=== PATIENT | female | born 1980 | race Caucasian/White ===

== ENCOUNTER 2020-03-17 17:54 | Emergency (ER) | payer OTHER ==
[~2020-03-17] VITALS: Ht 167.6 cm; Wt 82.1 kg
--- OUTSIDE RECORDS SUMMARY | ~2020-03-17 | XMS | Encounter Summary ---
Demographics + + + | Address | [address] | | | [place] [address] | + + + | Home Phone | | + + + | Preferred Language | Unknown | + + + | Marital Status | Single | + + + | Yarsani Affiliation | NON | + + + | Race | White | + + + | Ethnic Group | Not or | + + + Author + + + | Author | [facility] | + + + | Organization | [facility] | + + + | Address | Unknown | + + + | Phone | Unavailable | + + + Support + + +---------+ + | Name | Relationship | Address | Phone | + + +---------+ + | Asim Garcia | ECON | Unknown | | + + +---------+ + Care Team Providers + +------+ + | Care Freight Solicitor Name | Role | Phone | + +------+ + | Arturo Tony ELASTIC ATTACHER CHAINSTITCH | PCP | | + +------+ + Encounter Details +--------+ + + + + | Date | Type | Department | Care Team | Description | +--------+ + + + + | 01/08/ | Telephone | Center | [facility] | | | 2014 | | at [facility] [address] | [address] | | | | | [address] | [address] | | | | | Physician's | [place], [place] | | | | | [address], [address]th floor | [address] | | | | | [place], [place] | [phone] | | | | | [address] | | | | | | [phone] | | | +--------+ + + + + Social History + + + +--------+------+ | Tobacco Use | Types | Packs/Day | Years | Date | | | | | Used | | + + + +--------+------+ | Current Every Day | Cigarettes | 0.25 | 16 | | | Smoker | | | | | + + + +--------+------+ + +---+---+---+ | Smokeless Tobacco: | | | | | Never Used | | | | + +---+---+---+ + + +---------+ + | Alcohol Use | Drinks/Week | oz/Week | Comments | + + +---------+ + | No | | | | + + +---------+ + + + + | Sex Assigned at | Date Recorded | | | | + + + | Not on file | | + + + documented as of this encounter Miscellaneous Notes Telephone Encounter - Stephen Hernandez MD - 01/08/2015 12:[address] Rosemarie Wills regarding this patient who is scheduled for a cystoscopy/ureteroscopy on . I have no OB records for review. Per patient's report, she is is a at 33w5 d today (will be 34w1d on day of procedure) dated by a 25w US. She sees Dr. Santillan for her O B care. I spoke with her regarding risks of nonobstetric surgical procedures in the 3rd trimester, including risk of labor, PPROM and distress, possibly requiring emergent CS. B etamethazone is not indicated for lung maturity as she will be > 34w at time of proced ure. If feasible, we recommend considering regional anesthesia rather than GETA to decrease risk of aspiration and exposure to propofol, however, I explained that this decision will be made by her surgical and anesthesia teams. She expressed that she has severe anxiety and may not tolerate being awake for the procedure. She expressed understanding of the plan and our OB team will plan on seeing her preoperativ ara and consenting her for possible CS. Will plan for continuous external monitoring d uring the procedure. Will have CS tray available in case of distress. We discussed our recommendations with Dr. Brian Wills. STEPHEN HERNANDEZ MD Maternal Medicine Fellow 15 12:39 PM PDTdocumented in this encounter Plan of Treatment Not on filedocumented as of this encounter Visit Diagnoses Not on filedocumented in this encounter"
--- OUTSIDE RECORDS SUMMARY | ~2020-03-17 | XMS | Encounter Summary ---
Demographics + + + | Address | [address] [place] [address] N | | | [place] [address] | + + + | Home Phone | | + + + | Preferred Language | Unknown | + + + | Marital Status | Unknown | + + + | Restorationism Affiliation | Unknown | + + + | Race | White | + + + | Ethnic Group | Not or | + + + Author + + + | Author | [facility] | | | and [place] | + + + | Organization | [facility] | | | and [place] | + + + | Address | Unknown | + + + | Phone | Unavailable | + + + Support + + +---------+ + | Name | Relationship | Address | Phone | + + +---------+ + | Naga Grace | ECON | Unknown | | + + +---------+ + Care Team Providers + +------+ + | Care Bakery Machine Mechanic Supervisor Name | Role | Phone | + +------+ + | Mireya Krishnamurthy | PCP | | + +------+ + Reason for Visit + +--------+ + | Reason | Onset | Comments | | | Date | | + +--------+ + | Medication Refill | 11/10/ | | | | 2020 | | + +--------+ + Encounter Details +--------+ + + + + | Date | Type | Department | Care Team | Description | +--------+ + + + + | 11/10/ | Telephone | [facility] | Glenn Bro MD | Medication Refill | | 2020 | | [facility] | [address] | | | | | [facility] [address] | [place] | | | | | [address] [place], | [address] | | | | | [place] [address] | | | | | | [phone] | | | +--------+ + + + + Social History + +-------+ +--------+------+ | Tobacco Use | Types | Packs/Day | Years | Date | | | | | Used | | + +-------+ +--------+------+ | Never Assessed | | | | | + +-------+ +--------+------+ + + + | Sex Assigned at | Date Recorded | | | | + + + | Female | | + + + documented as of this encounter Miscellaneous Notes Telephone Encounter - Ирина Barnes RN - 11/11/2019 4:49 PM PDTCalled and informed pt/AARON rojas RN elephone Ирина Wetzel RN - 11/11/2019 4:04 PM PDTSumatriptan, never prescribed by Dr. Bro Last seen 11/05/19 Next appt 03/16/20 Did you want to change Cymbalta? /DARIUS Jon elephone Mario Hawk - 11/11/2019 1:55 PM PDTPt. Would like to refill Sumatriptan 5 0 mg. At [facility] in [place]. Pt. Is also taking 20mg of Cymbalta and that seems to help but cannot take 40mg will wake u p in the morning "groggy" Tdocumented in this encounter Plan of Treatment Not on filedocumented as of this encounter Visit Diagnoses Not on filedocumented in this encounter
--- OUTSIDE RECORDS SUMMARY | ~2020-03-17 | XMS | Encounter Summary ---
Demographics + + + | Address | [address] | | | [place] [address] | + + + | Home Phone | | + + + | Preferred Language | Unknown | + + + | Marital Status | Single | + + + | Taoist Affiliation | NON | + + + | Race | White | + + + | Ethnic Group | Not or | + + + Author + + + | Author | [facility] | + + + | Organization | [facility] | + + + | Address | Unknown | + + + | Phone | Unavailable | + + + Support + + +---------+ + | Name | Relationship | Address | Phone | + + +---------+ + | Asim Garcia | ECON | Unknown | | + + +---------+ + Care Team Providers + +------+ + | Care Water Pump Installer Name | Role | Phone | + +------+ + | Arturo Tony SOLVENT MIXER | PCP | | + +------+ + Reason for Visit AUTH/CERT +--------+--------+ + + + + | Status | Reason | Specialty | Diagnoses / | Referred By | Referred To | | | | | Procedures | Contact | Contact | +--------+--------+ + + + + | Closed | | | | | | +--------+--------+ + + + + Encounter Details +--------+ + + + + | Date | Type | Department | Care Team | Description | +--------+ + + + + | 01/11/ | Hospital | [facility] [address] | Brittany Wills MD | | | 2015 - | Encounter | [address] | [address] | | | | | [facility] | [place], [place] | | | 01/13/ | | [place], [place] | [address] | | | 2014 | | [address] | [phone] | | | | | [phone] | | | +--------+ + + + [...] + + documented as of this encounter Last Filed Vital Signs + + + + + | Vital Sign | Reading | Time Taken | Comments | + + + + + | Blood Pressure | 111/59 | 01/13/2015 7:43 AM | | | | | PDT | | + + + + + | Pulse | 58 | 01/13/2015 7:43 AM | | | | | PDT | | + + + + + | Temperature | 36.7 C (98.1 F) | 01/13/2015 7:43 AM | | | | | PDT | | + + + + + | Respiratory Rate | 16 | 01/13/2015 7:43 AM | | | | | PDT | | + + + + + | Oxygen Saturation | 98% | 01/13/2015 7:43 AM | | | | | PDT | | + + + + + | Inhaled Oxygen | - | - | | | Concentration | | | | + + + + + | Weight | 99.2 kg (218 lb 12.8 | 01/11/2015 4:40 PM | | | | oz) | PDT | | + + + + + | Height | 167.6 cm (5' 6") | 01/11/2015 4:40 PM | | | | | PDT | | + + + + + | Body Mass Index | 35.32 | 01/11/2015 4:40 PM | | | | | PDT | | + + + + + documented in this encounter Discharge Summaries Justino Mohamud MD, MSc - 01/13/2015 8:27 AM PDTFormatting of this note might be differen t from the original. INPATIENT PHYSICIAN DISCHARGE SUMMARY Author: JUSTINO MOHAMUD MD, MSc Attending Physician: Brittany Wills MD PCP: Arturo Tony NP Admission Date: 01/11/2015 Discharge Date: 13 Jan 2015 Diagnoses Principal Final Diagnosis: 1. Right flank pain, right hydronephrosis Procedures 1. Right ureteroscopy Brief Hospital Course 1. Mrs. Araiza is a 34 yo lady at 34w2d by 24w ultrasound presents for ri ght ureteroscopy and possible laser lithotripsy on 01/11/2015. In the operating room, no ston es were detected therefore only a right ureteroscopy was performed. Post-operatively, she re covered well. She tolerated an oral diet, and although she was slightly hypotensive (80-90s/ 50s), this is her baseline and she was asymptomatic. Medications: Current Discharge Medication List START taking these medications Details HYDROcodone-acetaminophen 5-325 mg oral tablet Take 1 tablet by mouth every six hours as ne eded for moderate pain. Not to exceed 3250 mg of acetaminophen from all products per 24 hour period. Qty: 20 tablet, Refills: 0 CONTINUE these medications which have CHANGED or have new prescriptions Details oxyCODONE-acetaminophen 5-325 mg oral tablet Take 1-2 tablets by mouth as needed. Qty: 20 tablet, Refills: 0 CONTINUE these medications which have NOT CHANGED Details docusate sodium 100 mg oral capsule Take 100 mg by mouth two times daily. FLUoxetine (PROZAC) 20 mg oral capsule Take 20 mg by mouth two times daily. ondansetron (ZOFRAN, HYDROCHLORIDE,) 4 mg oral tablet Take 4 mg by mouth every twelve ho urs as needed. VIT/IRON FUMARATE/FA ( ORAL) Take by mouth once daily in the morning. Diet Regular Regular diet- There are no restrictions to your diet. You may eat or drink whatever you pr efer, though healthy food choices are recommended. Activity No activity restrictions - No lifting more than 10 pounds for 6 weeks. This will allow your wound to heal as well as possible. - Avoid bearing down or straining with bowel movements. - Narcotics can cause constipation, so you may take djut-ywb-arcxemd stool softeners (Senok ot-S, Miralax, Colace) following the instructions on the box. Stop taking these pills if yo u are experiencing diarrhea. - No driving while on narcotics or with a urinary catheter in place. Destination: Destination: Home Condition on Discharge Fair Urology Follow Up Please follow up with Dr. Lizeth Pardo, your OBGYN next Sunday01/19/2015. Please call the Urology Clinic at with any questions or concerns, or if you experience symptoms of fever; chills; severe nausea; vomiting; pain that does not go away wi th usual medication; drainage or bleeding from the incision site; sudden numbness, weakness, or difficulty speaking; or any other concerns. If after hours, call the Urology Resident o n call at . Vitals on discharge: Ht 1.676 m (5' 6"), Wt 99.247 kg (218 lb 12.8 oz), BP 111/59, Pulse 58 , Temperature 36.7 C (98.1 F), RR 16, SpO2 98%, BMI 35.33 kg/(m^2). Outstanding labs/studies: None Follow-up Appointments: Follow up with Dr. Lizeth Pardo next Sunday for your OBGYN care. Discharging Physician: JUSTINO MOHAMUD MD, MSc Attending Physician: Brittany Wills MD documented in this enco unter Medications at Time of Discharge + + + +---------+ + + | Medication | Sig | Dispensed | Refills | Start | End Date | | | | | | Date | | + + + +---------+ + + | FLUoxetine | Take 20 mg by mouth | | 0 | | | | (PROZAC) 20 mg oral | two times daily. | | | | | | capsule | | | | | | + + + +---------+ + + | ondansetron | Take 4 mg by mouth | | 0 | | | | (ZOFRAN, | every twelve hours | | | | | | HYDROCHLORIDE,) 4 mg | as needed. | | | | | | oral tablet | | | | | | + + + +---------+ + + | ondansetron 4 mg | Take 1 tablet by | 30 | 0 | 07/15/20 | | | oral tablet | mouth every eight | tablet | | 15 | | | | hours as needed for | | | | | | | nausea/vomiting. | | | | | + + + +---------+ + + | | Take 1 to 2 tablets | 30 | 0 | 01/14/20 | | | oxyCODONE-acetaminop | by mouth every six | tablet | | 15 | | | hen 5-325 mg oral | hours as needed. | | | | | | tablet | | | | | | + + + +---------+ + + | VIT/IRON | Take by mouth once | | 0 | | | | FUMARATE/FA | daily in the | | | | | | ( ORAL) | morning. | | | | | + + + +---------+ + + | senna-docusate | Take 1 tablet by | 40 | 0 | 01/14/20 | | | 8.6-50 mg oral | mouth twice daily as | tablet | | 15 | | | tablet | needed. | | | | | + + + +---------+ + + documented as of this encounter Progress Notes Justino Mohamud MD, MSc - 01/13/2015 7:11 AM PDTFormatting of this note might be differen t from the original. Urology Progress Note Hospital Day: 2 Author: Justino Mohamud MD Attending Physician: Brittany Wills MD ID: 34 y.o. F at 34w2d by 24w ultrasound for right ureteroscopy on 01/12/20 15 for right hydronephrosis and flank pain, no evidence of stones on ureteroscopy. 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 Patient OOB/AMB per nurse. Objective: Last Vitals: BP 111/79 | Pulse 61 | Temp 36.7 C (98.1 F) | RR 17 | Ht 1.676 m (5' 6") | Wt 99.247 kg (218 lb 12.8 oz) | SpO2 99% | BMI 35.33 kg/(m^2) 24 Hour Vital Min/Max: Systolic (24hrs), Av mmHg, Min:87 mmHg, Max:111 mmHg Diastolic (24hrs), Av mmHg, Min:52 mmHg, Max:79 mmHg Pulse Min: 57 Max: 69 Temp Min: 36.4 C (97.5 F) Max: 36.7 C (98.1 F) Resp Min: 16 Max: 17 SpO2 Min: 97 % Max: 100 % Intake/Output Summary (Last 24 hours) at 01/13/15 0713 Last data filed at 01/13/15 0545 Gross per 24 hour Intake 2467.5 ml Output 2480 ml Net -12.5 ml PO: 1.6L IV: 370mL UOP: 2L + 5x Labs: Recent Labs 01/06/15 1450 01/12/15 0500 01/13/15 0453 WBC 11.71* 9.66 9.33 RBC 4.01 3.28* 3.57* HB 12.0 9.8* 10.5* HCT 35.7* 29.6* 32.0* PLT 138* 103* 120* Lab Results Component Value Date NA 138 01/13/2015 K 3.7 01/13/2015 CL 106 01/13/2015 BICARB 24 01/13/2015 BUN 5 01/13/2015 CR 0.55 01/13/2015 GLU 83 01/13/2015 CA 8.1 01/13/2015 Exam: Gen - Sleeping in bed this AM. Responding to questions. Pulm - No cough or increased work of breathing. Abd - Soft, non-distended, right sided tenderness Ext - Warm, well perfused; no LE edema, symmetric Assessment and Plan: Azucena Araiza is a 34 y.o. female with a history of right flank pain and hydronephrosis, n ow POD 2 s/p ureteroscopy, no evidence of stone in the OR. - diet: regular - pain: controlled on PO meds - needs to follow up in her OB clinic with Dr. Lizeth Pardo next Sunday01/19/2015. -OB saw patient yesterday, no issues with mother/baby, signed off. -discharge today The attending of record for this patient is Brittnay Wills MD. Jordin Mohamud, R1 Urology Pager [phone] Vernon Beauchamp - 12:32 PM Ambrocio Araiza is a 34 yo at 34w2d POD#1 s/p cystoscopy/ureteroscopy by Ur ology for history of nephrolithiasis and right hydronephrosis with no evidence of a stone. P rocedure uncomplicated, reassuring monitoring throughout the procedure. Admitted overnight d ue to pain control issues. No si/sx of labor, plan for discharge today NST 120s mod ifeanyi, accels present, no decels [place]: quiet - Reassuring FHT. No additional issues from an OB standpoint. Please page with any question s. Malissa Shaikh OBGYN [id number] signed by Vernon Shaikh at 01/12/2015 1:57 PM Justino Reno MD, MSc - 01/12/2015 6:41 AM PDTFormatting of this note might be different from the o riginal. Urology Progress Note Hospital Day: 1 Author: Justino Mohamud MD Attending Physician: Brittany Wills MD ID: 34 y.o. F at 34w2d by 24w ultrasound for right ureteroscopy on 01/12/20 15 for right hydronephrosis and flank pain, no evidence of stones on ureteroscopy. S/Interval hx: Feeling some pain overnight, baseline hypotensive, asymptomatic. Complains of some nausea. No emesis. Objective: Last Vitals: BP 87/52 | Pulse 60 | Temp 36.4 C (97.5 F) | RR 16 | Ht 1.676 m (5' 6") | Wt 99.247 kg (218 lb 12.8 oz) | SpO2 98% | BMI 35.33 kg/(m^2) 24 Hour Vital Min/Max: Systolic (24hrs), Av mmHg, Min:86 mmHg, Max:129 mmHg Diastolic (24hrs), Av mmHg, Min:52 mmHg, Max:87 mmHg Pulse Min: 58 Max: 91 Temp Min: 36.2 C (97.2 F) Max: 36.6 C (97.9 F) Resp Min: 14 Max: 20 SpO2 Min: 96 % Max: 100 % Intake/Output Summary (Last 24 hours) at 01/12/15 0746 Last data filed at 01/12/15 0520 Gross per 24 hour Intake 2565 ml Output 2370 ml Net 195 ml PO: 500mL IV: 2L UOP: 2.4L + 5x Labs: Recent Labs 01/06/15 1450 01/12/15 0500 WBC 11.71* 9.66 RBC 4.01 3.28* HB 12.0 9.8* HCT 35.7* 29.6* PLT 138* 103* Lab Results Component Value Date NA 138 01/12/2015 K 3.7 01/12/2015 CL 108 01/12/2015 BICARB 24 01/12/2015 BUN 4 01/12/2015 CR 0.49 01/12/2015 GLU 81 01/12/2015 CA 7.7 01/12/2015 Exam: Gen - Alert, conversant, NAD Pulm - No cough or increased work of breathing. Abd - Soft, non-distended, right sided tenderness Ext - Warm, well perfused; no LE edema, symmetric Assessment and Plan: Azucena Araiza is a 34 y.o. female with a history of right flank pain and hydronephrosis, n ow POD 1 s/p ureteroscopy, no evidence of stone in the OR. - restart fluoxetine - diet: regular - pain: controlled on PO meds - needs to follow up in her OB clinic with Dr. Lizeth Pardo next Sunday01/19/2015. The attending of record for this patient is Brittany Wills MD. Jordin Mohamud, R1 Urology Pager [phone] Vernon Beauchamp - 6:56 AM PDTOB BRIEF PRE-OP NOTE Admission Date/Time: 01/11/2015 0533 Service: OBGYN Faculty: Evelyn Outpatient: [facility] in [facility] HPI: Azucena Araiza is a 34 y.o. at 34w1d by 25w US presents for cystoscopy/uretero scopy possible lithotripsy by Urology for history of nephrolithiasis and right hydronephrosi s. Patient has been counseled by Dr. Hernandez on the risks of nonobstetric surgical proced ures in the third trimester. Please see telephone call from 01/08/15. Patient will have joesph nuous monitoring throughout her procedure. OB has been asked to consent patient for possible CS in case of distress during the procedure. Patient is feeling well today. Denies contractions, LOF, or vaginal bleeding. +FM. 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 - Patient consented for CS and BTL. WIll call to obtain OHP form from [facility] - Plan for continunous monitoring through procedure - Will send T&S this AM. Last Hct 01/06 35.7 - OB is available via pager for assistance SHIVANI Mathew [id number] signed by Vernon Shaikh at 01/11/2015 9:38 AM PDTdocumented in this encounter H&P Notes Brittany Wills MD - 01/11/2015 8:17 AM PDTI have examined the patient and reviewed the His tory and Physical and have confirmed that it is accurate and current. BRITTANY WILLS MD Health Services Manager Department of Urology [facility] documented in this enco unter Procedure Notes Morris Peñaloza MD - 01/11/2015 10:07 AM PDTAssociated Order(s): PROCEDURE NOTEDate of Pr ocedure: 01/11/2015 Attending Surgeon: Brittany Wills MD Data Management Associate(s): MD Salinas DE LA O MD Preoperative Diagnosis(es): 1. Right sided flank pain 2. Mild right hydronephrosis 3. Gravid uterus Postoperative Diagnosis(es): Same Procedures Performed: 1. Rigid cystourethroscopy. 2. Rigid ureteroscopy. 3. flexible ureteroscopy Anesthesia: General Estimated Blood Loss: Minimal. Specimens: none Disposition: Recovery and then home if pt's pain does not return. If it does, will likely be admitted t o OB for nephrostomy tube placement by IR Indications: Azucena Araiza is a 34 y.o. female with a history of urolithiasis, who is now and has had recurrent right flank pain. She is here today for diagnostic ureteroscopy Findings: No stones seen. Pt and baby tolerated procedure well. No fluoroscopy was used. Urethra: normal Bladder: normal Retrograde ureteropyelogram: NOT DONE due to Stone data: no stones Balloon dilation required: no Ureteral access sheath used?: no Ureteroscopes used: MR6 and P6R Holmium laser?: no Other working instruments: none Stent: none Procedure: Informed consent was previously obtained. The patient was properly identified and was shyann en to the operating room. General anesthesia was induced. The patient was placed in the cys tolithotomy position and prepped and draped in a sterile fashion. Prior to the beginning of the procedure the team paused to verify the patient's identity, as well as the procedure to be performed and the site. OB nurses were at the bedside to monitor the baby. All equipme nt required was ready and available. The surgical, nursing, and anesthesia teams participate d. Ceftriaxone was given as the antibiotic. A Sanders 21-Slovenian rigid cystoscope was then pass ed per the urethra under direct vision. The findings are as noted above. The right ureteral orifice was identified and a 0.038 inch guidewire was passed up the ureter. The MR6 semiri gid ureteroscope was passed into the right UO. No stones or other ureteral abnormalites wer e seen. This was removed and a flexible ureteroscope was passed up the ureter and into the renal pelvis. All poles and calices were examined and no stones were seen. The ureterosco pe was removed and the bladder was drained. There were no apparent complications. The marshall ent and baby tolerated the procedure well, was awakened in the operating room, and transport ed to the recovery room in stable condition. Dr. Wills was present for all portions of the operation. Associated attestation - Brittany Wills MD - 01/11/2015 12:35 PM PDTAttending Attestation I was present for all critical portions of the procedure. Had discussion with the patient's perinatologist, Dr. Lizeth Pardo following surgery. The patient's primary concern is the risk of opiate dependency in her baby. She has a strong fam amina history of drug abuse. Dr. Pardo felt the child's risk is very low given the infrequen t Percocet use by the patient. As such, nephrostomy tube placement would likely place the ba by at higher risk. Ms. Araiza will follow-up with Dr. Pardo in one to two weeks. BRITTANY WILLS MD Health Services Manager Department of Urology [facility] documented in this encounter Miscellaneous Notes Plan of Care - Rachael Napier - 01/13/2015 10:42 AM PDTProblem: Case Management Goals Goal: Discharge Needs Met Outcome: Goal met Date Met: 01/13/15 Per chart review and/or discussion with patient/family members and team, no discharge plann ing assistance from RN CM anticipated at this time. Will continue to follow through discharg e. Please see other disciplines' progress notes for their discharge recommendations. Please page immigration case worker if any CM arranged service needs arise. Rachael Napier [address] [address] Pager # [phone] valuation - Xiang Berg RN - 01/13/2015 10:40 AM PDTPatient Education Materials: AVS handout Additional Instructions: Patient was ambulating independently in hallway, tolerating regula r diet without nausea/vomiting, voiding, passing bowel movements and her pain was decreased with oral pain medication. Patient's PIV was removed prior to discharge. Patient was educate d on home diet, activity restrictions, discharge medications, constipation prevention, signs and symptoms of infection, signs and symptoms to notify MD about, MD contact information an d follow-up appointment. Patient reported that all questions were answered prior to discharg e. Patient was discharged via volunteer services to [facility] where she went to worm picker her prescriptions. She was then transported home via car by her aunt. Discharge Nurse: ANDREAS LOERA RN Date: 01/13/2015 Discharge Time: 10:40 AM andoff - Nilda Massey RN - 01/13/2015 6:31 AM PDTNursing Handoff Report Primary focus of stay: 34 yo F, s/p ureteroscopy 01/11/15. No stones found, no nephrostomy t ube placed per Dr. Wills & OB 2/2 higher risk for the fetus. PMHx: 34-weeks (this is 6th , has two living children), nausea, flank margarita n, asthma, mult pregnancies, smokes, GERD, migraines, anxiety, depression, DDD, pericardial cyst Pertinent physical findings: PIV Right hand SL. Overnight hypotension on 01/11/2015 , MD zaid re. Patient states it is her baseline. Voiding pink urine Orders to follow up on: discharge Last pain assessment/reassessment: painful to Right flank, anxious about the pain. PO oxyco done 15 mg q 4 along with scheduled tylenol is helpful and the new plan between patient and MD (no IV meds). Takes percocet at home. K- Pad has also been helpful Psych/social issues: lives in [place], has 2 daughters (2 and 13 ). Ambulates off unit to smoke. Last patient visit (i.e. Falls/Activity/Comfort/Environment/Toileting/Skin): ambulates slow and steady, voids Anticipated or pending procedures: discharge, am labs still need to be drawn Goals: Patient will rate pain at an acceptable level throughout shift. Patient will report intermittent nausea is controlled with non med/med interventions Interventions: Assess pain every 3-4 hours and prn; offer and administer medication as needed utilizing P O medications over IV whenever possible. Offer non med interventions Medication per Md order. Non med interventions for nausea such as slow deep breathing, elev ating the HOB, cool cloth to forehead Interventions that worked/didn't work:Patient was painful throughout the shift, she had one episode where her pain was increased after ambulating outside, MD felt it was best at that time to utilize oral and non med interventions above IV. A quiet dark room and application o f the k-pad was effective for her pain during this time. My recommendations forward: discharge andoff - Andrew, Valarie Coe RN - 01/12/2015 7:05 AM PDTNursing Handoff Report Primary focus of stay: 34 yo F, s/p ureteroscopy 01/11/15. No stones found, no nephrostomy t ube placed per Dr. Wills & OB 2/2 higher risk for the fetus. PMHx: 34-weeks (this is 6th ), nausea, flank pain, asthma, mult pregnanci es, smokes, GERD, migraines, anxiety, depression, DDD, pericardial cyst Pertinent physical findings: Neuro: A&Ox4. Baseline N/T in BLE on occasion; denies today. Resp: RA. Inhaler in medication bin. CV: PIVx2, one in each hand, SL. Hypotensive overnight, asymptomatic, MDs aware. GI/: Regular diet. Nausea-ongoing with . Voids; urine pink. : Fetus is active. NST and monitoring done this morning. Orders to follow up on: Admission database- please complete. Last pain assessment/reassessment: Painful, anxious about the pain, worried she will DC and then have to come back due to pain. PO oxycodone q4 hours and Tylenol PRN new plan- no IV m eds. Takes Percocet at home. Psych/social issues: Due to give 02/21. High-risk [employer] following baby #[id number]. Lives in [place], [place]. Has two daughters (2 and 13 yo's) who are staying with family in [place] . Walks outside to smoke. Last patient visit (i.e. Falls/Activity/Comfort/Environment/Toileting/Skin): SBA. Resting c omfortably in bed now. Anticipated or pending procedures: Discharge 01/13. Nursing Care Plan: Pt's pain and anxiety will be well controlled. She will resume a regular diet. Pt's fetus will remain stable. Interventions: Assess pain q2-3 hours. Administer analgesics as indicated and encourage non -pharmacological management techniques. Request change in diet order. Provide PO fluids per Pt preference. Contact L&D for monitoring. Evaluation: Pain controlled with PO oxycodone and Tylenol. At 1500 all IV pain meds were DC 'd. Pt anxious about inadequate pain control and "tired" of being painful. Intermittent naus ea, zofran and phenergan helping. L&D RN will be here this morning. Pt says she can feel the baby moving. Moderately stable. andoff - Lilliana Davenport RN - 01/12/2015 4:05 AM PDTNursing Handoff Report Primary focus of stay/Admission diagnosis: s/p Right ureteroscopy 01/11/15. No stones foun d, no nephrostomy tube placed per Dr. Duty due to risk to the fetus. Prior medical history: 34-weeks (this is her 6th ), nausea, flank pain, asthma, mult pregnancies, smokes, GERD, migraines, anxiety, depression, DDD, pericardial cys t Pertinent physical findings / events this shift: fetus is active, nausea has improved throu ghout the shift. Right sided flank pain with some relief from warm blankets, alternating of PO and IV pain meds. Patient was very anxious at beginning of the shift, had gone outside t o smoke and "felt terrible". Walks independently to BR, has pink tinged urine with no clots or sediment noted. MIVF. Will likely need to call L&D charge to schedule monitoring. LDA's/wounds: PIVx2 Pain assessment: Pain and nausea are well controlled alternating IV and PO meds Psych/social issues: baseline depression. Needs to resume Prozac, has anxiety issues as wel l Last patient visit (i.e. Falls/Activity/Comfort/Environment/Toileting/Skin): Sleeping at en d of shift. Watch for symptoms with BP. Orders to follow up on/Anticipated procedures: Needs to resume home dose of prozac. Much of her anxiety revolves around concern for pain control. Discussed need to stay close, efrain cially after dosing with IV pain meds. Possible OR if MD feels benefit outweighs risks. Fet al stress test?? Daily patient goal: To have pain and nausea controlled Outcome of patient goal: Progressing toward goal Patient stability: moderately stable Recommendations forward: Clarify plan with team in AM. Watch BP, activity, get Proza c resumed Akash Osman RN, Naomie glass - 01/11/2015 4:15 PM Brittani Phase I Discharge Criteria (Stable For Transfer): Yes Major deviations/events or pertinent findings of emliy-operative stay: very painful. No inte rvention done in OR but likely did irritate kidney. Voiding independently. Preop pain 5/10, currently 6/10. 10mg oxycodone and 1000mg IV tylenol given at 1600. Plan to be admitted over noc for pain management and if not undercontrol possibly placing urostomy tube per Dr. Wills . Anticipated post-op needs/devices/follow up: pain management Post-Op Diagnosis Codes: * Abdominal pain, other specified site [789.09] Surgical Procedure Planned - Actual Procedure Performed: Procedure(s) with comments: URETEROSCOPY WITH/WITHOUT LASER LITHOTRIPSY - DIAGNOSTIC URETEROSCOPY Anesthesia: General Length of procedure: In Room/Out of Room: 1 Hr 31 Min 13 Sec Surgeon(s) and Role: * Brittany Wills MD - Primary OR positioning comments: supine Neuro: POSS Sedation Level: Awake & Alert Last pain medication given: Fentanyl Push: 50 mcg (01/11/15 1430) Hydromorphone push (mg): 0.5 mg (01/11/15 1415) Pain medication totals: since 1400 150mcg Fentanyl, 0.5mg Dilaudid. 1,000mg Tylenol at 1600 10mg oxycodone. Additional pain medication information: Functional Epidural: No CORRECTIONS LIEUTENANT: No Respiratory: RR: 18, O2 Sat: 97 %, O2 Delivery: None (room air) Breath Sounds: WDL TAMAR: LLL: RUL: RLL: EMILIE No Comment: none noted Cardiac: BP: 105/65 mmHg HR: 84 GI: Nausea/Vomiting Status: No Signs/Symptoms: intermittent nausea- takes zofran at home Interventions: slow, deep breathing encouraged;antiemetic given;intravenous fluids initiate d;minimal stimulation;environmental adjustment Assessment: Comments: : Last void: 1530 Contact Name: Trisha-aunhetal Contact Number: [phone] Family contacted: Yes Comment:at bedside at 1600 Belongings:all home with aunt andoff - Valarie Morales RN - 01/11/2015 1:35 PM PDTNursing Handoff Report Primary focus of stay: 34 yo F, s/p ureteroscopy 01/11/15. No stones found, no nephrostomy t ube placed per Dr. Duty & OB 2/2 higher risk for the fetus. PMHx: 34-weeks , nausea, flank pain, asthma, mult pregnancies, smokes, GERD, migrai angel, anxiety, depression, DDD, pericardial cyst Pertinent physical findings: Neuro: A&Ox4. Baseline N/T in BLE on occasion; denies today. Resp: RA. Inhaler in medication bin. CV: PIVx2, one in each hand. IVF@ 75/hr. GI/: Regular diet. NPO @ midnight. Nausea-ongoing with . Voids; urine pink. Orders to follow up on: Pre-Op checklist overnight? Admission database. Stress test for fet us 01/12 am. Last pain assessment/reassessment: Very painful, increased from baseline 10 to 910 post- op. PO oxycodone q4 hours and Tylenol PRN. Takes Percocet at home. Psych/social issues: Due to give 02/21. Has high-risk [employer]. L&D RN following baby #1 [id number]. Lives in [place], [place]. Has two daughters (2 and 13 yo's) who are staying with family in [facility] and is with a girl. Pt wants to walk outside soon to smoke. Last patient visit (i.e. Falls/Activity/Comfort/Environment/Toileting/Skin): SBA. Plate of fruit and pudding in our fridge. Anticipated or pending procedures: Discharge 01/12. Nursing Care Plan: Pt's pain will be well controlled. She will eat a meal. Pt's fetus will remain stable. Interventions: Assess pain q2 hours until pain well managed. Administer analgesics as indic ated and encourage non-pharmacological management techniques as well. Provide a menu and exp ludwig how to order room service and discuss advancing the diet. Provide a jello and water on arrival to unit. Contact L&D as indicated today and in the morning for monitoring. Evaluation: Pain controlled with PO oxycodone and IV dilaudid. Intermittent nausea is inhib iting Pt from eating much, zofran helping. L&D will be here in the morning to monitor the ba by. Pt says she can feel the baby moving. Moderately stable. Akash - Rhiannon Beth RN - 01/11/2015 12:44 PM PDT Meets Phase I Discharge Criteria (Stable For Transfer): Yes Major deviations/events or pertinent findings of emily-operative stay: VS stable throughout [facility] stay -Dr Duty visited bedside multiple times to update and coordinate with patient regarding car e/plan and spoke with her highway maintainer Dr in [place]-came to the consensus that nephrostom y tube increased risk of infection to fetus and will not do the surgery at this time, possib ly induce a few weeks early since is likely cause of compression and pain -baby being monitored by L&D -2PIV-SL -Pt lives in [place], staying with aunt (contact) in [place] Anticipated post-op needs/devices/follow up: residential green building designer contacted for additional medications for pain and nausea as well as IVF Pain management Safety Anxiety management monitoring-L&D provider Lizabeth Alvarez pgr [phone], pls page with updates if additiona l pain medications needed Allergies Allergen Reactions Adhesive Tape Contact Dermatitis Codeine Hives Hydrocodone Hives Morphine Sulfate Hives Past Medical History Diagnosis Date Nephrolithiasis Pericardial mass DDD (degenerative disc disease), cervical Anxiety and depression Post-Op Diagnosis Codes: * Abdominal pain, other specified site [789.09] Surgical Procedure Planned - Actual Procedure Performed: Procedure(s) with comments: URETEROSCOPY WITH/WITHOUT LASER LITHOTRIPSY - DIAGNOSTIC URETEROSCOPY Anesthesia: General Length of procedure: In Room/Out of Room: 1 Hr 31 Min 13 Sec Surgeon(s) and Role: * Brittany Wills MD - Primary OR positioning comments: lithotomy Neuro: POSS Sedation Level: Awake & Alert Last pain medication given: Fentanyl Push: 25 mcg (01/11/15 1315) Pain medication totals: Fentanyl 200mcg, IV Acetaminophen 1G, Oxycodone 10mg Additional pain medication information: pt takes percocet intermittently at home for pain. Pt has concerns regarding pain medication, baby,and addiction, especially since there is a family history of Pain medication addiction. Functional Epidural: No CORRECTIONS LIEUTENANT: No Respiratory: RR: 18, O2 Sat: 97 %, O2 Delivery: None (room air) Breath Sounds: WDL TAMAR: LLL: RUL: RLL: EMILIE No Comment: Cardiac: BP: 120/78 mmHg HR: 84 GI: Nausea/Vomiting Status: Yes- zofran administered, pt takes PO at home during Signs/Symptoms: intermittent nausea Interventions: slow, deep breathing encouraged;antiemetic given;intravenous fluids initiate d;minimal stimulation;environmental adjustment Assessment: Comments: : Last void: ambulated stand by assist to void @1130 Contact Name: Nancy Contact Number: [phone] Family contacted: Yes Comment:updated via phone and visited bedside in [facility] Belongings:none present, with aunt documented in this en counter Plan of Treatment Not on filedocumented as of this encounter Procedures + +--------+ + + + | Procedure Name | Priori | Date/Time | Associated Diagnosis | Comments | | | ty | | | | + +--------+ + + + | PROCEDURE NOTE | Routin | 08/05/2015 | | Results for this | | | e | 1:27 PM | | procedure are in the | | | | PST | | results section. | + +--------+ + + + | CBC (HEMOGRAM) ONLY | Urgent | 01/13/2015 | | Results for this | | | | 4:53 AM | | procedure are in the | | | | PDT | | results section. | + +--------+ + + + | BASIC METABOLIC SET | Urgent | 01/13/2015 | | Results for this | | (NA, K, CL, TCO2, | | 4:53 AM | | procedure are in the | | BUN, CR, GLU, CA) | | PDT | | results section. | + +--------+ + + + | CBC ONLY | Urgent | 01/13/2015 | | Results for this | | | | 4:53 AM | | procedure are in the | | | | PDT | | results section. | + +--------+ + + + | PHOSPHORUS, PLASMA | Urgent | 01/13/2015 | | Results for this | | | | 4:53 AM | | procedure are in the | | | | PDT | | results section. | + +--------+ + + + | MAGNESIUM, PLASMA | Urgent | 01/13/2015 | | Results for this | | | | 4:53 AM | | procedure are in the | | | | PDT | | results section. | + +--------+ + + + | NST ONLY | Routin | 01/12/2015 | | Results for this | | | e | 12:33 PM | | procedure are in the | | | | PDT | | results section. | + +--------+ + + + | CBC (HEMOGRAM) ONLY | Urgent | 01/12/2015 | | Results for this | | | | 5:00 AM | | procedure are in the | | | | PDT | | results section. | + +--------+ + + + | BASIC METABOLIC SET | Urgent | 01/12/2015 | | Results for this | | (NA, K, CL, TCO2, | | 5:00 AM | | procedure are in the | | BUN, CR, GLU, CA) | | PDT | | results section. | + +--------+ + + + | CBC ONLY | Urgent | 01/12/2015 | | Results for this | | | | 5:00 AM | | procedure are in the | | | | PDT | | results section. | + +--------+ + + + | PHOSPHORUS, PLASMA | Urgent | 01/12/2015 | | Results for this | | | | 5:00 AM | | procedure are in the | | | | PDT | | results section. | + +--------+ + + + | MAGNESIUM, PLASMA | Urgent | 01/12/2015 | | Results for this | | | | 5:00 AM | | procedure are in the | | | | PDT | | results section. | + +--------+ + + + | URETEROSCOPY | Electi | 01/11/2015 | Abdominal pain, | | | WITH/WITHOUT LASER | ve | 8:32 AM | other specified site | | | LITHOTRIPSY | Surgic | PDT | | | | | al | | | | + +--------+ + + + +---+--------+ | | | | | Specia | | | l | | | Needs | | | 23 | | | hour | | | observ | | | ation | +---+--------+ + +--------+ +---+ + | ANTIBODY | Routin | 01/11/2015 | | Results for this | | IDENTIFICATION | e | 6:54 AM | | procedure are in the | | | | PDT | | results section. | + +--------+ +---+ + | ANTIBODY SCREEN | Urgent | 01/11/2015 | | Results for this | | | | 6:54 AM | | procedure are in the | | | | PDT | | results section. | + +--------+ +---+ + | TYPE AND SCREEN | Urgent | 01/11/2015 | | Results for this | | | | 6:54 AM | | procedure are in the | | | | PDT | | results section. | + +--------+ +---+ + | ABO & RH TYPE | Urgent | 01/11/2015 | | Results for this | | | | 6:54 AM | | procedure are in the | | | | PDT | | results section. | + +--------+ +---+ + | CARDIOLOGY | | 01/11/2015 | | Results for this | | | | 12:00 AM | | procedure are in the | | | | PDT | | results section. | + +--------+ +---+ + documented in this encounter Results PROCEDURE NOTE (08/05/2015 1:27 PM PST)CBC (HEMOGRAM) ONLY (01/13/2015 4:53 AM PDT) + + + + + + | Component | Value | Ref Range | Performed | Pathologist | | | | | At | Signature | + + + + + + | WHITE CELL | 9.33 | 4.40 - 11.00 | [facility] | | | COUNT | | K/cu mm | LABORATORY | | | | | | SERVICES, | | | | | | CORE | | + + + + + + | RED CELL | 3.57 (L) | 4.00 - 5.20 | [facility] | | | COUNT | | M/cu mm | LABORATORY | | | | | | SERVICES, | | | | | | CORE | | + + + + + + | HEMOGLOBIN | 10.5 (L) | 12.0 - 16.0 | [facility] | | | | | g/dL | LABORATORY | | | | | | SERVICES, | | | | | | CORE | | + + + + + + | HEMATOCRIT | 32.0 (L) | 36.0 - 46.0 % | [facility] | | | | | | LABORATORY | | | | | | SERVICES, | | | | | | CORE | | + + + + + + | MCV | 89.6 | 80.0 - 96.0 fL | [facility] | | | | | | LABORATORY | | | | | | SERVICES, | | | | | | CORE | | + + + + + + | MCHC | 32.8 | 33.0 - 35.5 | [facility] | | | | | g/dL | LABORATORY | | | | | | SERVICES, | | | | | | CORE | | + + + + + + | RDW SD | 41.8 | 35.1 - 46.3 fL | [facility] | | | | | | LABORATORY | | | | | | SERVICES, | | | | | | CORE | | + + + + + + | PLATELET | 120 (L) | 150 - 400 K/cu | [facility] | | | COUNT | | mm | LABORATORY | | | | | | SERVICES, | | | | | | CORE | | + + + + + + | MPV | 11.8 | 9.7 - 12.3 fL | [facility] | | | | | | LABORATORY | | | | | | SERVICES, | | | | | | CORE | | + + + + + + | NRBC% | 0.0 | 0.0 - 0.3 % | [facility] | | | | | | LABORATORY | | | | | | SERVICES, | | | | | | CORE | | + + + + + + | NRBC# | 0.00 | 0.00 - 0.02 | [facility] | | | | | K/cu mm | LABORATORY | | | | | | SERVICES, | | | | | | CORE | | + + + + + + + + | Specimen | + + | Blood - Blood | + + + + + + + | Performing | Address | City/State/Zipcode | Phone Number | | Organization | | | | + + + + + | [facility] | [address] | [place] [address] | | | SERVICES, [place] | [address] | | | + + + + + PHOSPHORUS, PLASMA (01/13/2015 4:53 AM PDT) + +-------+ + + + | Component | Value | Ref Range | Performed | Pathologist | | | | | At | Signature | + +-------+ + + + | PHOSPHORUS, | 3.2 | 2.4 - 4.7 mg/dL | [facility] | | | PLASMA | | | LABORATORY | | | (LAB) | | | SERVICES, | | | | | | CORE | | + +-------+ + + + + + | Specimen | + + | Blood - Blood | + + + + + + + | Performing | Address | City/State/Zipcode | Phone Number | | Organization | | | | + + + + + | [facility] | [address] | [place] [address] | | | SERVICES, CORE | [address] | | | + + + + + MAGNESIUM, PLASMA (01/13/2015 4:53 AM PDT) + +---------+ + + + | Component | Value | Ref Range | Performed | Pathologist | | | | | At | Signature | + +---------+ + + + | MAGNESIUM,P | 1.7 (L) | 1.8 - 2.5 mg/dL | [facility] | | | LASMA | | | LABORATORY | | | | | | SERVICES, | | | | | | CORE | | + +---------+ + + + + + | Specimen | + + | Blood - Blood | + + + + + + + | Performing | Address | City/State/Zipcode | Phone Number | | Organization | | | | + + + + + | [facility] | [address] | [place] [address] | | | SERVICES, CORE | [address] | | | + + + + + BASIC METABOLIC SET (NA, K, CL, TCO2, BUN, CR, GLU, CA) (01/13/2015 4:53 AM PDT) + + + + + + | Component | Value | Ref Range | Performed | Pathologist | | | | | At | Signature | + + + + + + | GLUCOSE, | 83 | 60 - 99 mg/dL | [facility] | | | PLASMA | | | LABORATORY | | | (LAB) | | | SERVICES, | | | | | | CORE | | + + + + + + | BUN, PLASMA | 5 (L) | 6 - 20 mg/dL | [facility] | | | (LAB) | | | LABORATORY | | | | | | SERVICES, | | | | | | CORE | | + + + + + + | CREATININE | 0.55 (L) | 0.60 - 1.10 | [facility] | | | PLASMA | | mg/dL | LABORATORY | | | (LAB) | | | SERVICES, | | | | | | CORE | | + + + + + + | EGFR | >60 | >60 mL/min | [facility] | | | - | | | LABORATORY | | | IRISH | | | SERVICES, | | | | | | CORE | | + + + + + + | EGFR NON | >60 | >60 mL/min | [facility] | | | -RANJAN | | | LABORATORY | | | RICAN | | | SERVICES, | | | | | | CORE | | + + + + + + | SODIUM, | 138 | 136 - 145 | [facility] | | | PLASMA | | mmol/L | LABORATORY | | | (LAB) | | | SERVICES, | | | | | | CORE | | + + + + + + | POTASSIUM, | 3.7 | 3.4 - 5.0 | [facility] | | | PLASMA | | mmol/L | LABORATORY | | | (LAB) | | | SERVICES, | | | | | | CORE | | + + + + + + | CHLORIDE, | 106 | 97 - 108 mmol/L | [facility] | | | PLASMA | | | LABORATORY | | | (LAB) | | | SERVICES, | | | | | | CORE | | + + + + + + | TOTAL CO2, | 24 | 21 - 32 mmol/L | [facility] | | | PLASMA | | | LABORATORY | | | (LAB) | | | SERVICES, | | | | | | CORE | | + + + + + + | CALCIUM, | 8.1 (L) | 8.6 - 10.2 | [facility] | | | PLASMA | | mg/dL | LABORATORY | | | (LAB) | | | SERVICES, | | | | | | CORE | | + + + + + + | ANION GAP | 8 | mmol/L | [facility] | | | | | | LABORATORY | | | | | | SERVICES, | | | | | | CORE | | + + + + + + | POTASSIUM | No Hemo | | [facility] | | | CMNT | | | LABORATORY | | | | | | SERVICES, | | | | | | CORE | | + + + + + + + + | Specimen | + + | Blood - Blood | + + + + + | Narrative | Performed At | + + + | GFR is estimated using the MDRD equation recommended by the | [facility] | | National Kidney Disease Education Program. Estimated GFR | LABORATORY | | Interpretive Information: <60 mL/min/1.73 sq m | SERVICES, CORE | | Chronic Kidney Disease <15 mL/min/1.73 sq m | | | Kidney Failure Estimated GFR greater that 60 mL/min/1.73 sq m is of | | | limited clinical value. The MDRD equation is not valid in the | | | following situations: - Patients under 18 years of age - Severe | | | malnutrition or obesity - Vegetarian diet - Rapidly changing kidney | | | function | | + + + + + + + + | Performing | Address | City/State/Zipcode | Phone Number | | Organization | | | | + + + + + | [facility] | [address] | [place] [address] | | | [place], [place] | [address] | | | + + + + + NST ONLY (01/12/2015 12:33 PM PDT) + + + + + + | Component | Value | Ref Range | Performed | Pathologist | | | | | At | Signature | + + + + + + | PHYSICIAN | react | | | | | INTERP NST | | | | | + + + + + + | IN PROCESS | Reactive | | | | | INTERP NST | | | | | + + + + + + + + + | Impressions | Performed At | + + + | Baseline FHR 130 bpm, moderate variability, + accelerations, no | | | decelerations [place]: no contractions in 20 minutes Indication | | | POD#1 s/p ureteroscopy for hydronephrosis and flank pain. | | | Impression: Reactive NST 130 Recommendations: F/up as ordered | | | Wolf mejía | | + + + + + + | Narrative | Performed At | + + + | NST: 34 y.o. at 34w2d gestation with estimated date of | | | delivery Not found.. Indication for monitoring is POD#1 s/p | | | ureteroscopy for hydronephrosis and flank pain. BL FHR 130 with | | | moderate variability, no decelerations, and + accelerations. No | | | contractions noted in 24 minutes. Is scheduled for NST in one day | | | pending discharge. Magdalena Shankar [facility] | | + + + CBC (HEMOGRAM) ONLY (01/12/2015 5:00 AM PDT) + + + + + + | Component | Value | Ref Range | Performed | Pathologist | | | | | At | Signature | + + + + + + | WHITE CELL | 9.66 | 4.40 - 11.00 | [facility] | | | COUNT | | K/cu mm | LABORATORY | | | | | | SERVICES, | | | | | | CORE | | + + + + + + | RED CELL | 3.28 (L) | 4.00 - 5.20 | [facility] | | | COUNT | | M/cu mm | LABORATORY | | | | | | SERVICES, | | | | | | CORE | | + + + + + + | HEMOGLOBIN | 9.8 (L) | 12.0 - 16.0 | [facility] | | | | | g/dL | LABORATORY | | | | | | SERVICES, | | | | | | CORE | | + + + + + + | HEMATOCRIT | 29.6 (L) | 36.0 - 46.0 % | [facility] | | | | | | LABORATORY | | | | | | SERVICES, | | | | | | CORE | | + + + + + + | MCV | 90.2 | 80.0 - 96.0 fL | [facility] | | | | | | LABORATORY | | | | | | SERVICES, | | | | | | CORE | | + + + + + + | MCHC | 33.1 | 33.0 - 35.5 | [facility] | | | | | g/dL | LABORATORY | | | | | | SERVICES, | | | | | | CORE | | + + + + + + | RDW SD | 42.3 | 35.1 - 46.3 fL | [facility] | | | | | | LABORATORY | | | | | | SERVICES, | | | | | | CORE | | + + + + + + | PLATELET | 103 (L) | 150 - 400 K/cu | [facility] | | | COUNT | | mm | LABORATORY | | | | | | SERVICES, | | | | | | CORE | | + + + + + + | MPV | 12.2 | 9.7 - 12.3 fL | [facility] | | | | | | LABORATORY | | | | | | SERVICES, | | | | | | CORE | | + + + + + + | NRBC% | 0.0 | 0.0 - 0.3 % | [facility] | | | | | | LABORATORY | | | | | | SERVICES, | | | | | | CORE | | + + + + + + | NRBC# | 0.00 | 0.00 - 0.02 | [facility] | | | | | K/cu mm | LABORATORY | | | | | | SERVICES, | | | | | | CORE | | + + + + + + + + | Specimen | + + | Blood - Blood | + + + + + + + | Performing | Address | City/State/Zipcode | Phone Number | | Organization | | | | + + + + + | [facility] | [address] | [place] [address] | | | SERVICES, CORE | [address] | | | + + + + + PHOSPHORUS, PLASMA (01/12/2015 5:00 AM PDT) + +-------+ + + + | Component | Value | Ref Range | Performed | Pathologist | | | | | At | Signature | + +-------+ + + + | PHOSPHORUS, | 3.4 | 2.4 - 4.7 mg/dL | [facility] | | | PLASMA | | | LABORATORY | | | (LAB) | | | SERVICES, | | | | | | CORE | | + +-------+ + + + + + | Specimen | + + | Blood - Blood | + + + + + + + | Performing | Address | City/State/Zipcode | Phone Number | | Organization | | | | + + + + + | [facility] | [address] | [place] [address] | | | SERVICES, CORE | [address] | | | + + + + + MAGNESIUM, PLASMA (01/12/2015 5:00 AM PDT) + +---------+ + + + | Component | Value | Ref Range | Performed | Pathologist | | | | | At | Signature | + +---------+ + + + | MAGNESIUM,P | 1.7 (L) | 1.8 - 2.5 mg/dL | [facility] | | | LASMA | | | LABORATORY | | | | | | SERVICES, | | | | | | CORE | | + +---------+ + + + + + | Specimen | + + | Blood - Blood | + + + + + + + | Performing | Address | City/State/Zipcode | Phone Number | | Organization | | | | + + + + + | [facility] | [address] | [place] [address] | | | SERVICES, CORE | [address] | | | + + + + + BASIC METABOLIC SET (NA, K, CL, TCO2, BUN, CR, GLU, CA) (01/12/2015 5:00 AM PDT) + + + + + + | Component | Value | Ref Range | Performed | Pathologist | | | | | At | Signature | + + + + + + | GLUCOSE, | 81 | 60 - 99 mg/dL | [facility] | | | PLASMA | | | LABORATORY | | | (LAB) | | | SERVICES, | | | | | | CORE | | + + + + + + | BUN, PLASMA | 4 (L) | 6 - 20 mg/dL | [facility] | | | (LAB) | | | LABORATORY | | | | | | SERVICES, | | | | | | CORE | | + + + + + + | CREATININE | 0.49 (L) | 0.60 - 1.10 | [facility] | | | PLASMA | | mg/dL | LABORATORY | | | (LAB) | | | SERVICES, | | | | | | CORE | | + + + + + + | EGFR | >60 | >60 mL/min | [facility] | | | - | | | LABORATORY | | | IRISH | | | SERVICES, | | | | | | CORE | | + + + + + + | EGFR NON | >60 | >60 mL/min | [facility] | | | -RANJAN | | | LABORATORY | | | RICAN | | | SERVICES, | | | | | | CORE | | + + + + + + | SODIUM, | 138 | 136 - 145 | [facility] | | | PLASMA | | mmol/L | LABORATORY | | | (LAB) | | | SERVICES, | | | | | | CORE | | + + + + + + | POTASSIUM, | 3.7 | 3.4 - 5.0 | [facility] | | | PLASMA | | mmol/L | LABORATORY | | | (LAB) | | | SERVICES, | | | | | | CORE | | + + + + + + | CHLORIDE, | 108 | 97 - 108 mmol/L | [facility] | | | PLASMA | | | LABORATORY | | | (LAB) | | | SERVICES, | | | | | | CORE | | + + + + + + | TOTAL CO2, | 24 | 21 - 32 mmol/L | [facility] | | | PLASMA | | | LABORATORY | | | (LAB) | | | SERVICES, | | | | | | CORE | | + + + + + + | CALCIUM, | 7.7 (L) | 8.6 - 10.2 | [facility] | | | PLASMA | | mg/dL | LABORATORY | | | (LAB) | | | SERVICES, | | | | | | CORE | | + + + + + + | ANION GAP | 6 | mmol/L | [facility] | | | | | | LABORATORY | | | | | | SERVICES, | | | | | | CORE | | + + + + + + | POTASSIUM | No Hemo | | [facility] | | | CMNT | | | LABORATORY | | | | | | SERVICES, | | | | | | CORE | | + + + + + + + + | Specimen | + + | Blood - Blood | + + + + + | Narrative | Performed At | + + + | GFR is estimated using the MDRD equation recommended by the | [facility] | | National Kidney Disease Education Program. Estimated GFR | LABORATORY | | Interpretive Information: <60 mL/min/1.73 sq m | SERVICES, CORE | | Chronic Kidney Disease <15 mL/min/1.73 sq m | | | Kidney Failure Estimated GFR greater that 60 mL/min/1.73 sq m is of | | | limited clinical value. The MDRD equation is not valid in the | | | following situations: - Patients under 18 years of age - Severe | | | malnutrition or obesity - Vegetarian diet - Rapidly changing kidney | | | function | | + + + + + + + + | Performing | Address | City/State/Zipcode | Phone Number | | Organization | | | | + + + + + | [facility] | [address] | [place] [address] | | | SERVICES, CORE | [address] | | | + + + + + ANTIBODY IDENTIFICATION (01/11/2015 6:54 AM PDT) + + + + + + | Component | Value | Ref Range | Performed | Pathologist | | | | | At | Signature | + + + + + + | ANTIBODY 1 | Passive D Antibody, | | [facility] | | | | Patient Received [facility] | | LABORATORY | | | | | | SERVICES, | | | | | | TRANSFUSION | | | | | | MEDICINE | | + + + + + + + + | Specimen | + + | Blood - Blood | + + + + + + + | Performing | Address | City/State/Zipcode | Phone Number | | Organization | | | | + + + + + | [facility] | [address] | [place] [address] | | | SERVICES, | [address] | | | | TRANSFUSION MEDICINE | | | | + + + + + ANTIBODY SCREEN (01/11/2015 6:54 AM PDT) + + + + + + | Component | Value | Ref Range | Performed | Pathologist | | | | | At | Signature | + + + + + + | Antibody | Positive | | [facility] | | | Screen | | | LABORATORY | | | | | | SERVICES, | | | | | | TRANSFUSION | | | | | | MEDICINE | | + + + + + + + + | Specimen | + + | Blood - Blood | + + + + + + + | Performing | Address | City/State/Zipcode | Phone Number | | Organization | | | | + + + + + | [facility] | [address] | [place] [address] | | | SERVICES, | [address] | | | | TRANSFUSION MEDICINE | | | | + + + + + ABO & RH TYPE (01/11/2015 6:54 AM PDT) + + + + + + | Component | Value | Ref Range | Performed | Pathologist | | | | | At | Signature | + + + + + + | ABO Group | A | | [facility] | | | | | | LABORATORY | | | | | | SERVICES, | | | | | | TRANSFUSION | | | | | | MEDICINE | | + + + + + + | Rh Type | Negative | | [facility] | | | | | | LABORATORY | | | | | | SERVICES, | | | | | | TRANSFUSION | | | | | | MEDICINE | | + + + + + + + + | Specimen | + + | Blood - Blood | + + + + + + + | Performing | Address | City/State/Zipcode | Phone Number | | Organization | | | | + + + + + | [facility] | [address] | [place] [address] | | | SERVICES, | [address] | | | | TRANSFUSION MEDICINE | | | | + + + + + CARDIOLOGY (01/11/2015 12:00 AM PDT) + + + | Narrative | Performed At | + + + | | | + + + documented in this encounter Visit Diagnoses Not on filedocumented in this encounter Administered Medications + +---------+ + +------+------+ | Medication Order | MAR | Action | Dose | Rate | Site | | | Action | Date | | | | + +---------+ + +------+------+ | acetaminophen (OFIRMEV) IV | New Bag | 01/12/20 | 1,000 mg | | | | 1,000 mg 1,000 mg, intravenous, | | 15 10:15 | | | | | ONCE, 1 dose, 01/11/15 at 1030 | | AM PDT | | | | + +---------+ + +------+------+ +---+---+ | | | +---+---+ + +---------+ + +---+---+ | acetaminophen (OFIRMEV) IV | New Bag | 01/12/20 | 1,000 mg | | | | 1,000 mg 1,000 mg, intravenous, | | 15 3:53 | | | | | EVERY 6 HOURS NEEDED, Starting | | PM PDT | | | | | 01/11/15 at 1516, Until Tue | | | | | | | 01/12/15 at 1501, mild pain | | | | | | + +---------+ + +---+---+ + +---+ | | | + +---+ | acetaminophen (OFIRMEV) IV 1 | | | dose, Starting 01/11/15 at | | | 1015, Until Sun01/11/15 at 1015 | | + +---+ | | | + +---+ + +-------+ +--------+---+---+ | acetaminophen (TYLENOL) tablet | Given | 01/13/20 | 650 mg | | | | 325-650 mg 325-650 mg, oral, | | 15 8:20 | | | | | EVERY 4 HOURS NEEDED, Starting | | AM PDT | | | | | 01/11/15 at 1638, Until Sun | | | | | | | 01/12/15 at 1501, mild pain | | | | | | + +-------+ +--------+---+---+ +-------+ +--------+---+---+ | Given | 01/13/20 | 650 mg | | | | | 15 12:36 | | | | | | AM PDT | | | | +-------+ +--------+---+---+ +---+---+ | | | +---+---+ + +-------+ +--------+---+---+ | acetaminophen (TYLENOL) tablet | Given | 01/14/20 | 650 mg | | | | 650 mg 650 mg, oral, EVERY 4 | | 15 9:43 | | | | | HOURS, First dose (after last | | AM PDT | | | | | modification) on Sun01/12/15 at | | | | | | | 1600, Until Discontinued | | | | | | + +-------+ +--------+---+---+ +-------+ +--------+---+---+ | Given | 01/14/20 | 650 mg | | | | | 15 5:45 | | | | | | AM PDT | | | | +-------+ +--------+---+---+ | Given | 01/14/20 | 650 mg | | | | | 15 1:27 | | | | | | AM PDT | | | | +-------+ +--------+---+---+ +---+---+ | | | +---+---+ + +-------+ + +---+---+ | calcium carbonate chewable | Given | 01/14/20 | 200 mg | | | | (TUMS) tablet 200 mg elemental | | 15 8:20 | elementa | | | | 200 mg elemental (500 mg total | | AM PDT | l | | | | salt), oral, THREE TIMES DAILY | | | | | | | WITH MEALS, First dose on Sun | | | | | | | 01/12/15 at 1915, Until | | | | | | | Discontinued | | | | | | + +-------+ + +---+---+ +-------+ + +---+---+ | Given | 01/13/20 | 200 mg | | | | | 15 7:41 | elementa | | | | | PM PDT | l | | | +-------+ + +---+---+ +---+---+ | | | +---+---+ + +---------+ + + +---+ | dextrose 5%-NaCl 0.45%-KCl 20 | New Bag | 01/13/20 | 75 mL/hr | 75 mL/hr | | | mEq/L IV infusion 75 mL/hr, | | 15 2:37 | | | | | intravenous, CONTINUOUS, Starting | | AM PDT | | | | | 01/11/15 at 1445, Until Wed | | | | | | | 01/13/15 at 1653 | | | | | | + +---------+ + + +---+ + + + + +---+ | Rate/Dose Verify | 01/12/20 | 75 mL/hr | 75 mL/hr | | | | 15 4:46 | | | | | | PM PDT | | | | + + + + +---+ | New Bag | 01/12/20 | 75 mL/hr | 75 mL/hr | | | | 15 2:40 | | | | | | PM PDT | | | | + + + + +---+ +---+---+ | | | +---+---+ + +-------+ +-------+---+---+ | diphenhydrAMINE (BENADRYL) | Given | 01/14/20 | 25 mg | | | | capsule 25 mg 25 mg, oral, EVERY | | 15 7:44 | | | | | 6 HOURS NEEDED, Starting Mon | | AM PDT | | | | | 01/11/15 at 2353, Until Wed | | | | | | | 01/13/15 at 1653, Anxiety | | | | | | + +-------+ +-------+---+---+ +-------+ +-------+---+---+ | Given | 01/14/20 | 25 mg | | | | | 15 1:27 | | | | | | AM PDT | | | | +-------+ +-------+---+---+ | Given | 01/13/20 | 25 mg | | | | | 15 7:43 | | | | | | PM PDT | | | | +-------+ +-------+---+---+ +---+---+ | | | +---+---+ + +---------+ +--------+---+---+ | fentaNYL citrate (PF) | New Bag | 01/12/20 | 25 mcg | | | | (SUBLIMAZE) injection 10-30 mcg | | 15 11:10 | | | | | 10-30 mcg, intravenous, EVERY 2 | | PM PDT | | | | | HOURS NEEDED, Starting Mon | | | | | | | 01/11/15 at 1638, Until Tue | | | | | | | 01/12/15 at 1436, severe pain | | | | | | + +---------+ +--------+---+---+ +---+---+ | | | +---+---+ + +---------+ +--------+---+---+ | fentaNYL citrate (PF) | New Bag | 01/12/20 | 25 mcg | | | | (SUBLIMAZE) injection 25 mcg 25 | | 15 1:15 | | | | | mcg, intravenous, POSTPROCEDURE | | PM PDT | | | | | PRN, 8 doses, Starting Mon | | | | | | | 01/11/15 at 0922, Until Mon | | | | | | | 01/11/15 at 1315, severe pain | | | | | | + +---------+ +--------+---+---+ +---------+ +--------+---+---+ | New Bag | 01/12/20 | 25 mcg | | | | | 15 1:01 | | | | | | PM PDT | | | | +---------+ +--------+---+---+ | New Bag | 01/12/20 | 25 mcg | | | | | 15 12:51 | | | | | | PM PDT | | | | +---------+ +--------+---+---+ +---+---+ | | | +---+---+ + +---------+ +--------+---+---+ | fentaNYL citrate (PF) | New Bag | 01/12/20 | 50 mcg | | | | (SUBLIMAZE) injection 50 mcg 50 | | 15 2:32 | | | | | mcg, intravenous, ONCE, 1 dose, | | PM PDT | | | | | Sun01/11/15 at 1445 | | | | | | + +---------+ +--------+---+---+ +---+---+ | | | +---+---+ + + + +--------+---+---+ | fentaNYL citrate (PF) | Bolus | 01/12/20 | 50 mcg | | | | (SUBLIMAZE) injection 50-100 mcg | from | 15 2:35 | | | | | 50-100 mcg, intravenous, EVERY 1 | Same Bag | PM PDT | | | | | HOUR NEEDED, 2 doses, | | | | | | | Starting Sun01/11/15 at 1433, | | | | | | | Until Sun01/11/15 at 1435, | | | | | | | moderate pain | | | | | | + + + +--------+---+---+ +---------+ +--------+---+---+ | New Bag | 01/12/20 | 50 mcg | | | | | 15 2:34 | | | | | | PM PDT | | | | +---------+ +--------+---+---+ + +---+ | | | + +---+ | fentaNYL citrate (PF) | | | (SUBLIMAZE) injection 1 dose, | | | Starting Sun01/11/15 at 1219, | | | Until Sun01/11/15 at 1220 | | + +---+ | | | + +---+ + +-------+ +--------+---+---+ | fentaNYL citrate (PF) | Given | 01/12/20 | 50 mcg | | | | (SUBLIMAZE) injection 1 dose, | | 15 2:53 | | | | | Starting Sun01/11/15 at 1449, | | PM PDT | | | | | Until Sun01/11/15 at 1453 | | | | | | + +-------+ +--------+---+---+ +---+---+ | | | +---+---+ + +-------+ +-------+---+---+ | FLUoxetine (PROZAC) capsule 20 | Given | 01/14/20 | 20 mg | | | | mg 20 mg, oral, TWICE DAILY, | | 15 9:43 | | | | | First dose on Sun01/12/15 at | | AM PDT | | | | | 0900, Until Discontinued | | | | | | + +-------+ +-------+---+---+ +-------+ +-------+---+---+ | Given | 01/13/20 | 20 mg | | | | | 15 9:34 | | | | | | PM PDT | | | | +-------+ +-------+---+---+ | Given | 01/13/20 | 20 mg | | | | | 15 8:20 | | | | | | AM PDT | | | | +-------+ +-------+---+---+ +---+---+ | | | +---+---+ + +---------+ +--------+---+---+ | HYDROmorphone (DILAUDID) | New Bag | 01/12/20 | 0.2 mg | | | | injection 0.2-0.5 mg 0.2-0.5 mg, | | 15 1:45 | | | | | intravenous, EVERY 4 HOURS | | PM PDT | | | | | NEEDED, 2 doses, Starting Mon | | | | | | | 01/11/15 at 1338, Until Mon | | | | | | | 01/11/15 at 1414, severe pain | | | | | | + +---------+ +--------+---+---+ +---+---+ | | | +---+---+ + +---------+ +--------+---+---+ | HYDROmorphone (DILAUDID) | New Bag | 01/13/20 | 0.2 mg | | | | injection 0.2-0.5 mg 0.2-0.5 mg, | | 15 11:31 | | | | | intravenous, EVERY 2 HOURS | | AM PDT | | | | | NEEDED, Starting 01/11/15 at | | | | | | | 1808, Until 01/12/15 at 1443, | | | | | | | moderate pain, severe pain | | | | | | + +---------+ +--------+---+---+ +---------+ +--------+---+---+ | New Bag | 01/13/20 | 0.3 mg | | | | | 15 7:14 | | | | | | AM PDT | | | | +---------+ +--------+---+---+ | New Bag | 01/13/20 | 0.5 mg | | | | | 15 2:36 | | | | | | AM PDT | | | | +---------+ +--------+---+---+ +---+---+ | | | +---+---+ + +---------+ +--------+---+---+ | HYDROmorphone (DILAUDID) | New Bag | 01/12/20 | 0.5 mg | | | | injection 0.5 mg 0.5 mg, | | 15 2:14 | | | | | intravenous, ONCE, 1 dose, Mon | | PM PDT | | | | | 01/11/15 at 1445 | | | | | | + +---------+ +--------+---+---+ + +---+ | | | + +---+ | HYDROmorphone (DILAUDID) | | | injection 1 dose, Starting Mon | | | 01/11/15 at 1326, Until Mon | | | 01/11/15 at 1345 | | + +---+ | | | + +---+ + +---------+ + + +---+ | lactated ringers IV 10 mL/hr, | New Bag | 01/12/20 | 10 mL/hr | 10 mL/hr | | | intravenous, PROCEDURE | | 15 6:35 | | | | | CONTINUOUS, Starting Sun01/11/15 | | AM PDT | | | | | at 0615, Until Sun01/11/15 at | | | | | | | 1624 | | | | | | + +---------+ + + +---+ +---+---+ | | | +---+---+ + +---------+ +------+---+---+ | midazolam (PF) (VERSED) | New Bag | 01/12/20 | 1 mg | | | | injection 1-2 mg 1-2 mg, | | 15 2:39 | | | | | intravenous, ONCE, 1 dose, Mon | | PM PDT | | | | | 01/11/15 at 1515 | | | | | | + +---------+ +------+---+---+ + +---+ | | | + +---+ | midazolam (PF) (VERSED) | | | injection 1 dose, Starting Mon | | | 01/11/15 at 1437, Until Mon | | | 01/11/15 at 1439 | | + +---+ | | | + +---+ + +---------+ +------+---+---+ | ondansetron (ZOFRAN) injection | New Bag | 01/12/20 | 4 mg | | | | 4 mg 4 mg, intravenous, ONCE, 1 | | 15 7:11 | | | | | dose, 01/11/15 at 0715 | | AM PDT | | | | + +---------+ +------+---+---+ +---+---+ | | | +---+---+ + +---------+ +------+---+---+ | ondansetron (ZOFRAN) injection | New Bag | 01/12/20 | 4 mg | | | | 4 mg 4 mg, intravenous, | | 15 3:04 | | | | | POSTPROCEDURE PRN, 1 dose, | | PM PDT | | | | | Starting Sun01/11/15 at 0922, | | | | | | | Until Sun01/11/15 at 1504, | | | | | | | nausea/vomiting, 1st line | | | | | | + +---------+ +------+---+---+ +---+---+ | | | +---+---+ + +---------+ +------+---+---+ | ondansetron (ZOFRAN) injection | New Bag | 01/12/20 | 4 mg | | | | 4 mg 4 mg, intravenous, | | 15 11:41 | | | | | POSTPROCEDURE PRN, 1 dose, | | AM PDT | | | | | Starting 01/11/15 at 0922, | | | | | | | Until Sun01/11/15 at 1141, | | | | | | | nausea/vomiting, nausea/vomiting | | | | | | | (greater than 6 hours | | | | | | | post-operatively) | | | | | | + +---------+ +------+---+---+ +---+---+ | | | +---+---+ + +---------+ +------+---+---+ | ondansetron (ZOFRAN) injection | New Bag | 01/12/20 | 4 mg | | | | 4 mg 4 mg, intravenous, EVERY 12 | | 15 11:09 | | | | | HOURS NEEDED, 2 doses, | | PM PDT | | | | | Starting Sun01/11/15 at 1014, | | | | | | | Until Sun01/13/15 at 1653, | | | | | | | nausea/vomiting | | | | | | + +---------+ +------+---+---+ + +---+ | | | + +---+ | ondansetron (ZOFRAN) injection | | | 1 dose, Starting Sun01/11/15 at | | | 0709, Until Sun01/11/15 at 0711 | | + +---+ | | | + +---+ + +-------+ +------+---+---+ | ondansetron (ZOFRAN) tablet 4 | Given | 01/14/20 | 4 mg | | | | mg 4 mg, oral, EVERY 8 HOURS | | 15 3:20 | | | | | NEEDED, Starting Sun01/12/15 at | | AM PDT | | | | | 0904, Until Sun01/13/15 at 1653, | | | | | | | nausea/vomiting | | | | | | + +-------+ +------+---+---+ +-------+ +------+---+---+ | Given | 01/13/20 | 4 mg | | | | | 15 7:41 | | | | | | PM PDT | | | | +-------+ +------+---+---+ | Given | 01/13/20 | 4 mg | | | | | 15 11:32 | | | | | | AM PDT | | | | +-------+ +------+---+---+ +---+---+ | | | +---+---+ + +-------+ +-------+---+---+ | oxyCODONE (immediate release) | Given | 01/13/20 | 10 mg | | | | (ROXICODONE) tablet 5-10 mg 5-10 | | 15 5:05 | | | | | mg, oral, EVERY 4 HOURS | | AM PDT | | | | | NEEDED, Starting Sun01/11/15 at | | | | | | | 1015, Until Sun01/12/15 at 0904, | | | | | | | severe pain | | | | | | + +-------+ +-------+---+---+ +-------+ +-------+---+---+ | Given | 01/13/20 | 10 mg | | | | | 15 12:36 | | | | | | AM PDT | | | | +-------+ +-------+---+---+ | Given | 01/12/20 | 10 mg | | | | | 15 8:32 | | | | | | PM PDT | | | | +-------+ +-------+---+---+ +---+---+ | | | +---+---+ + +-------+ +-------+---+---+ | oxyCODONE (immediate release) | Given | 01/14/20 | 15 mg | | | | (ROXICODONE) tablet 5-15 mg 5-15 | | 15 9:43 | | | | | mg, oral, EVERY 4 HOURS | | AM PDT | | | | | NEEDED, Starting Tu01/12/15 at | | | | | | | 0904, Until Sun01/13/15 at 1653, | | | | | | | severe pain | | | | | | + +-------+ +-------+---+---+ +-------+ +-------+---+---+ | Given | 01/14/20 | 15 mg | | | | | 15 5:45 | | | | | | AM PDT | | | | +-------+ +-------+---+---+ | Given | 01/14/20 | 15 mg | | | | | 15 1:28 | | | | | | AM PDT | | | | +-------+ +-------+---+---+ + +---+ | | | + +---+ | oxyCODONE (immediate release) | | | (ROXICODONE) tablet 1 dose, | | | Starting 01/11/15 at 1139, | | | Until Sun01/11/15 at 1142 | | + +---+ | | | + +---+ + +-------+ +------+---+---+ | polyethylene glycol (MIRALAX) | Given | 01/14/20 | 34 g | | | | powder 34 g 34 g, oral, THREE | | 15 3:06 | | | | | TIMES DAILY NEEDED, Starting | | AM PDT | | | | | 01/11/15 at 1638, Until Wed | | | | | | | 01/13/15 at 1653, constipation, | | | | | | | for no BM for 2 days | | | | | | + +-------+ +------+---+---+ +-------+ +------+---+---+ | Given | 01/13/20 | 17 g | | | | | 15 5:35 | | | | | | PM PDT | | | | +-------+ +------+---+---+ +---+---+ | | | +---+---+ + +-------+ +---------+---+---+ | promethazine (PHENERGAN) tablet | Given | 01/14/20 | 12.5 mg | | | | 12.5 mg 12.5 mg, oral, EVERY 6 | | 15 5:48 | | | | | HOURS NEEDED, Starting Mon | | AM PDT | | | | | 01/11/15 at 2100, Until Wed | | | | | | | 01/13/15 at 1653, nausea/vomiting | | | | | | + +-------+ +---------+---+---+ +-------+ +---------+---+---+ | Given | 01/13/20 | 12.5 mg | | | | | 15 5:02 | | | | | | AM PDT | | | | +-------+ +---------+---+---+ | Given | 01/12/20 | 12.5 mg | | | | | 15 9:08 | | | | | | PM PDT | | | | +-------+ +---------+---+---+ +---+---+ | | | +---+---+ + +-------+ + +---+---+ | senna-docusate (SENOKOT S) | Given | 01/14/20 | 1 tablet | | | | 8.6-50 mg 1 tablet 1 tablet, | | 15 9:43 | | | | | oral, TWICE DAILY, First dose on | | AM PDT | | | | | 01/11/15 at 2100, Until | | | | | | | Discontinued | | | | | | + +-------+ + +---+---+ +-------+ + +---+---+ | Given | 01/13/20 | 1 tablet | | | | | 15 9:34 | | | | | | PM PDT | | | | +-------+ + +---+---+ | Given | 01/13/20 | 1 tablet | | | | | 15 8:20 | | | | | | AM PDT | | | | +-------+ + +---+---+ +---+---+ | | | +---+---+ + +-------+ +-------+---+---+ | sodium citrate-citric acid | Given | 01/12/20 | 30 mL | | | | (BICITRA) 500-334 mg/5 mL liquid | | 15 7:45 | | | | | 1 dose, Starting 01/11/15 at | | AM PDT | | | | | 0739, Until 01/11/15 at 0745 | | | | | | + +-------+ +-------+---+---+ +---+---+ | | | +---+---+ documented in this encounter
--- OUTSIDE RECORDS SUMMARY | ~2020-03-17 | XMS | Encounter Summary ---
Demographics + + + | Address | [address] [place] [address] N | | | [place] [address] | + + + | Home Phone | | + + + | Preferred Language | Unknown | + + + | Marital Status | Unknown | + + + | Sabianist Affiliation | Unknown | + + + | Race | White | + + + | Ethnic Group | Not or | + + + Author + + + | Author | [facility] | | | and [place] | + + + | Organization | [facility] | | [...] Team Providers + +------+ + | Care Aeronautical Research Engineer Name | Role | Phone | + +------+ + | Mireya Krishnamurthy | PCP | | + +------+ + Reason for Visit +--------+--------+ + | Reason | Onset | Comments | | | Date | | +--------+--------+ + | Triage | 03/17/ | | | | 2020 | | +--------+--------+ + Encounter Details +--------+ + + + + | Date | Type | Department | Care Team | Description | +--------+ + + + + | 03/17/ | Telephone | [facility] | Ирина Barnes RN | Triage | | 2020 | | [facility] | | | | | | CLINIC [address] | | | | | | [address] [place], | | | | | | [place] [address] | | | | | | [phone] | | | +--------+ + + + + Social History + +-------+ +--------+------+ | Tobacco Use | Types | Packs/Day | Years | Date | | | | | Used | | + +-------+ +--------+------+ | Current Every Day | | 0.25 | | | | Smoker | | | | | + +-------+ +--------+------+ + +---+---+---+ | Smokeless Tobacco: | | | | | Never Used | | | | + +---+---+---+ + + +---------+ + | Alcohol Use | Drinks/Week | oz/Week | Comments | + + +---------+ + | Not Currently | | | maybe once a year | + + +---------+ + + + + | Sex Assigned at | Date Recorded | | | | + + + | Female | 03/14/2020 8:21 PM PDT | + + + documented as of this encounter Miscellaneous Notes Telephone Encounter - Ирина Barnes RN - 03/17/2020 10:19 AM PDTSpoke with pt, she stated she feel on her front steps. She states she is having ankle pain & knee pain. Advised pt to go to ER to be evaluated. Pt stated understanding, has someone to take her. /DARIUS JonElec tronically signed by Ирина Barnes RN at 03/17/2020 10:21 AM PDTdocumented in this encounte r Plan of Treatment Not on filedocumented as of this encounter Visit Diagnoses Not on filedocumented in this encounter"
--- OUTSIDE RECORDS SUMMARY | ~2020-03-17 | XMS | Encounter Summary ---
Demographics + + + | Address | [address] [place] [address] N | | | [place] [address] | + + + | Home Phone | | + + + | Preferred Language | Unknown | + + + | Marital Status | Unknown | + + + | Cheondoism Affiliation | Unknown | + + + | Race | White | + + + | Ethnic Group | Not or | + + + Author + + + | Author | [facility] | | | and [place] | + + + | Organization | [facility] | | | and [...] Team Providers + +------+ + | Care Feather Stitcher Name | Role | Phone | + +------+ + | Mireya Krishnamurthy | PCP | | + +------+ + Reason for Visit +--------+--------+ + | Reason | Onset | Comments | | | Date | | +--------+--------+ + | Pain | 03/12/ | | | | 2020 | | +--------+--------+ + Encounter Details +--------+ + + + + | Date | Type | Department | Care Team | Description | +--------+ + + + + | 03/12/ | Telephone | [facility] | [facility], | [facility] | | 2020 | | [facility] | [facility], [facility] [address] | | | | | CLINIC [address] | [address] [place], | | | | | [address] [place], | [place] [address] | | | | | [place] [address] | [phone] | | | | | [phone] | | | +--------+ + + + [...] this encounter Miscellaneous Notes Telephone Encounter - Glenn Bro MD - 03/12/2020 2:57 PM PDTcalled patient wilth pain throughout, sent to PCP and xr hips and pelvis also negative and will try to get theses res ults, has appt with Ktahia on 03/16 and may schedule for NCS/EMG of the upper and Lower ext remities though likely fibromylagia, MRI (-)Electronically signed by Glenn Bro MD at 2:57 PM PDTTelephone Encounter - Ирина Barnes RN - 03/12/2020 12:03 PM PDTPt sa w PCP, and did xray of coccyx, they said "nothing was wrong". Pt c/o lower back, coccyx area pain and is " 8" on pain scale, complaining, can't walk. Pt states that she was sent to [facility] by PCP. She does have a follow up appointment with Leesa farris on Sunday, advised to keep appointment and if pain out of control to go to ER, pt spike lopez in [place]. Last seen 11/05/[address] Bro. /DARIUS Jon elephone Encounter - Mario Christensen - 03/12/2020 11: 44 AM PDTPt called to say that she is in extreme pain. Pt right side of body hurts. Pt says it hurts to cough, walk, and lay in bed. Please advise documented in this encounter Plan of Treatment Not on filedocumented as of this encounter Visit Diagnoses Not on filedocumented in this encounter
--- OUTSIDE RECORDS SUMMARY | ~2020-03-17 | XMS | Encounter Summary ---
Demographics + + + | Address | [address] | | | [place] [address] | + + + | Home Phone | | + + + | Preferred Language | Unknown | + + + | Marital Status | Single | + + + | Zoroastrian Affiliation | NON | + + + | Race | White | + + + | Ethnic Group | Not or | + + + Author + + + | Author | [facility] | + + + | Organization | [facility] | + + + | Address | Unknown | + + + | Phone | Unavailable | + + + Support + + +---------+ + | Name | Relationship | Address | Phone | + + +---------+ + | Asim Garcia | ECON | Unknown | | + + +---------+ + Care Team Providers + +------+ + | Care Cart Pusher Name | Role | Phone | + +------+ + | Arturo Tony PHOTONICS TECHNICIAN | PCP | | + +------+ + Encounter Details +--------+ + + + + | Date | Type | Department | Care Team | Description | +--------+ + + + + | 12/30/ | Automated [facility] | Urology at [facility] | Brian Wills MD | Nephrolithiasis | | 2014 | | [address] | [address] | (Primary Dx) | | | | [place] [facility] | [facility] [place] | | | | | and Healing, | [address] | | | | | | [phone] | | | | | Floor [place], [place] | | | | | | [address] | | | | | | [phone] | | | +--------+ + + + [...] this encounter Miscellaneous Notes Telephone Encounter - Evelyn Li MA - 01/04/2015 1:15 PM PDTPatient returned my phone c all and I informed her that she must complete these today as her surgery is next week Sunday . She understand she needs to do a CLEAN CATCH MIDSTREAM for the urine samples. She states sh e knows how to do this. She will go in today. CBC, BMP, Urine micro and Culture re-placed. Electronically signed by Evelyn Li MA at 1:16 PM PDTTelephone Encounter - Evelyn Li MA - 01/04/2015 1:02 PM PDTI have canceled the external lab orders and reordered them as internal. I have tried to call [facility], but all the phone numbers listed have been shut off. No phone number was listed in the prior phone interaction. I found a phone number, unsure who it belongs to. The answering person will have her call b ack. Please let [facility] know that the labs have been placed for the 3rd floor of [facility] and she must g et this done today. elephone Encounter - Nancy Alcantar - 01/04/2015 9:04 AM PDTPt calling because orders were not at [facility] when pt was there. Pt is now in [place] and will come to [facility] to do orders. Pls place orders and call to let pt know they are here. elephone Encounter - Evelyn Li MA - 12/31/2014 8:[address] Wills, Nidia placed pre-operative lab orders for CBC, BMP, Urine Micro, Urine culture. These were faxed to her lab of choice; [facility]. F: [phone] I have tried every number in patients chart, no answer and no voicemail. I will try again later today. elephone Encounter - Evelyn Contreras MA - 12/30/2014 4:06 PM PDTPer documented in this encounter Plan of Treatment Not on filedocumented as of this encounter Results BASIC METABOLIC SET (NA, K, CL, TCO2, BUN, CR, GLU, CA) (01/06/2015 2:50 PM PDT) + + + + + + | Component | Value | Ref Range | Performed | Pathologist | | | | | At | Signature | + + + + + + | GLUCOSE, | 90 | 60 - 99 mg/dL | [facility] [...] + + + + | CREATININE | 0.52 (L) | 0.60 - 1.10 | [facility] | | | PLASMA | | mg/dL | LABORATORY | | | (LAB) | | | SERVICES, | | | | | | CORE | | + + + + + + | EGFR | >60 | >60 mL/min | [facility] | | | - | | | LABORATORY | | | [place] | | | SERVICES, | | | | | | CORE | | + + + + + + | EGFR NON | >60 | >60 mL/min | [facility] | | | -RANJAN | | | LABORATORY | | | [place] | | | SERVICES, | | | | | | CORE | | + + + + + + | SODIUM, | 139 | 136 - 145 | [facility] | | | PLASMA | | mmol/L | LABORATORY | | | (LAB) | | | SERVICES, | | | | | | CORE | | + + + + + + | POTASSIUM, | 3.8 | 3.4 - 5.0 | [facility] | | | PLASMA | | mmol/L | LABORATORY | | | (LAB) | | | SERVICES, | | | | | | CORE | | + + + + + + | CHLORIDE, | 109 (H) | 97 - 108 mmol/L | [facility] | | | PLASMA | | | LABORATORY | | | (LAB) | | | SERVICES, | | | | | | CORE | | + + + + + + | TOTAL CO2, | 22 | 21 - 32 mmol/L | [facility] | | | PLASMA | | | LABORATORY | | | (LAB) | | | SERVICES, | | | | | | CORE | | + + + + + + | CALCIUM, | 8.3 (L) | 8.6 - 10.2 | [facility] [...] the MDRD equation recommended by the | [facility] | | National Kidney Disease Education Program. [...] | + + + + + | [facility] | [address] | [place] [address] | | | SERVICES, CORE | [address] | | | + + + + + URINE, MICROSCOPIC EXAM (01/06/2015 2:50 PM PDT) + +---------+ + + + | Component | Value | Ref Range | Performed | Pathologist | | | | | At | Signature | + +---------+ + + + | RED CELLS | 0 | 0 - 3 /hpf | [facility] | | | | | | LABORATORY | | | | | | SERVICES, | | | | | | CORE | | + +---------+ + + + | WHITE CELLS | 4 | 0 - 5 /hpf | [facility] | | | | | | LABORATORY | | | | | | SERVICES, | | | | | | CORE | | + +---------+ + + + | BACTERIA | Few (A) | None /hpf | [facility] | | | | | | LABORATORY | | | | | | SERVICES, | | | | | | CORE | | + +---------+ + + + | YEAST (LAB) | None | None /hpf | [facility] | | | | | | LABORATORY | | | | | | SERVICES, | | | | | | CORE | | + +---------+ + + + | SQUAMOUS | Few (A) | None /hpf | [facility] | | | EPITHELIAL | | | LABORATORY | | | | | | SERVICES, | | | | | | CORE | | + +---------+ + + + | MUCOUS | None | None /hpf | [facility] | | | | | | LABORATORY | | | | | | SERVICES, | | | | | | CORE | | + +---------+ + + + | TRICHOMONAS | None | None /hpf | [facility] | | | | | | LABORATORY | | | | | | SERVICES, | | | | | | CORE | | + +---------+ + + + | NON-BIB | Few (A) | None /hpf | [facility] | | | S EPITH | | | LABORATORY | | | | | | SERVICES, | | | | | | CORE | | + +---------+ + + + | HYALINE | 0 | 0 - 2 /lpf | [facility] | | | CASTS | | | LABORATORY | | | | | | SERVICES, | | | | | | CORE | | + +---------+ + + + | GRANULAR | 0 | 0 - 2 /lpf | [facility] | | | CASTS | | | LABORATORY | | | | | | SERVICES, | | | | | | CORE | | + +---------+ + + + | CELLULAR | 0 | <=0 /lpf | [facility] | | | CASTS | | | LABORATORY | | | | | | SERVICES, | | | | | | CORE | | + +---------+ + + + | TRIPLE P04 | None | None /hpf | [facility] | | | CRYSTALS | | | LABORATORY | | | | | | SERVICES, | | | | | | CORE | | + +---------+ + + + | CALCIUM | None | None /hpf | [facility] | | | OXALATE | | | LABORATORY | | | [place] | | | SERVICES, | | | | | | CORE | | + +---------+ + + + | URIC ACID | None | None /hpf | [facility] | | | [facility] | | | LABORATORY | | | | | | SERVICES, | | | | | | CORE | | + +---------+ + + + | AMORPHOUS | None | None /hpf | [facility] | | | CR[facility]STALS | | | LABORATORY | | | | | | SERVICES, | | | | | | CORE | | + +---------+ + + + + + | Specimen | + + | Urine - Urine | + + + + + + + | Performing | Address | City/State/Zipcode | Phone Number | | Organization | | | | + + + + + | [facility] | [address] | [place] [address] | | | SERVICES, CORE | [address] | | | + + + + + documented in this encounter Visit Diagnoses + + | Diagnosis | + + | Nephrolithiasis - Primary Calculus of kidney | + + documented in this encounter"
--- OUTSIDE RECORDS SUMMARY | ~2020-03-17 | XMS | Encounter Summary ---
Demographics + + + | Address | [address] | | | [place] [address] | + + + | Home Phone | | + + + | Preferred Language | Unknown | + + + | Marital Status | Single | + + + | Baptism Affiliation | NON | + + + | Race | White | + + + | Ethnic Group | Not or | + + + Author + + + | Author | [facility] | + + + | Organization | [facility] | + + + | Address | Unknown | + + + | Phone | Unavailable | + + + Support + + +---------+ + | Name | Relationship | Address | Phone | + + +---------+ + | Asim Garcia | ECON | Unknown | | + + +---------+ + Care Team Providers + +------+ + | Care Cord Splicer Name | Role | Phone | + +------+ + | Arturo Tony RN RELIEF CHARGE | PCP | | + +------+ + Encounter Details +--------+ + + + + | Date | Type | Department | Care Team | Description | +--------+ + + + + | 01/13/ | Pharmacy | Outpatient Retail | | | | 2014 | Visit | [facility] | | | | | | [address] | | | | | | [address] [place], [place] | | | | | | [address] | | | | | | [phone] | | | +--------+ + + + [...] + + documented as of this encounter Plan of Treatment Not on filedocumented as of this encounter Visit Diagnoses Not on filedocumented in this encounter"
--- OUTSIDE RECORDS SUMMARY | ~2020-03-17 | XMS | Encounter Summary ---
Demographics + + + | Address | [address] | | | [place] [address] | + + + | Home Phone | | + + + | Preferred Language | Unknown | + + + | Marital Status | Single | + + + | Muslim Affiliation | NON | + + + | Race | White | + + + | Ethnic Group | Not or | + + + Author + + + | Author | [facility] | + + + | Organization | [facility] | + + + | Address | Unknown | + + + | Phone | Unavailable | + + + Support + + +---------+ + | Name | Relationship | Address | Phone | + + +---------+ + | Asim Garcia | ECON | Unknown | | + + +---------+ + Care Team Providers + +------+ + | Care Senior Linux Systems Engineer Name | Role | Phone | + +------+ + | Arturo Tony SENIOR PRODUCT ANALYST | PCP | | + +------+ + Encounter Details +--------+ + + + + | Date | Type | Department | Care Team | Description | +--------+ + + + + | 12/02/ | Document-Sc | UNKNOWN DEPARTMENT | Unknown . | | | 2015 | anned | [address] | | | | | | [address] | | | | | | [place] | | | | | | [address] | | | +--------+ + + + [...] | + +--------+ + + + | RADIOLOGY | | 12/02/2014 | | Results for this | | | | 12:00 AM | | procedure are in the | | | | PDT | | results section. | + +--------+ + + + documented in this encounter Results RADIOLOGY (12/02/2014 12:00 AM PDT) + + + | Narrative | Performed At | + + + | | | + + + documented in this encounter Visit Diagnoses Not on filedocumented in this encounter"
--- OUTSIDE RECORDS SUMMARY | ~2020-03-17 | XMS | Encounter Summary ---
Demographics + + + | Address | [address] [place] [address] [address] | | | [place] [address] | + + + | Home Phone | | + + + | Preferred Language | Unknown | + + + | Marital Status | Unknown | + + + | Taoism Affiliation | Unknown | + + + | Race | White | + + + | Ethnic Group | Not or | + + + Author + + + | Author | [facility] | | | and [place] | + + + | Organization | [facility] | | | and [...] Team Providers + +------+ + | Care Rim Roller Operator Name | Role | Phone | + +------+ + PCP | Unavailable | + +------+ + Encounter Details +--------+ + + + + | Date | Type | Department | Care Team | Description | +--------+ + + + + | 07/17/ | Hospital | [facility] | | | | 2001 | Encounter | MED [facility] GENER[facility] OP | | | | | | CONV DEPT [address] | | | | | | [address], | | | | | | [place] [address] | | | | | | [phone] | | | +--------+ + + + [...]
--- OUTSIDE RECORDS SUMMARY | ~2020-03-17 | XMS | Clinical Summary ---
Demographics + + + | Address | [address] [place] [address] N | | | [place] [address] | + + + | Home Phone | | + + + | Preferred Language | Unknown | + + + | Marital Status | Unknown | + + + | Episcopal Affiliation | Unknown | + + + [...] Team Providers + +------+ + | Care Gate Manager Name | Role | Phone | + +------+ + | Mireya Krishnamurthy | PCP | | + +------+ + Allergies + + + + + + | Active Allergy | Reactions | Severity | Noted | Comments | | | | | Date | | + + + + + + | Adhesive & Tape | Rash | Medium | 12/07/19 | Needs benadryl | | | | | 12 | before using any | | | | | | adhesives (IV | | | | | | dressings [place]) | + + + + + + | Codeine | Hives | | 11/05/19 | | | | | | 20 | | + + + + + + | Ibuprofen | Nausea And Vomiting | Low | 09/23/19 | | | | | | 17 | | + + + + + + | Morphine | Anaphylaxis, Hives | High | 07/29/19 | | | | | | 10 | | + + + + + + | Promethazine | Hives | Medium | 12/07/19 | | | | | | 12 | | + + + + + + Medications + + + +---------+------+------+-------+ | Medication | Sig | Dispensed | Refills | Star | End | Statu | | | | | | t | Date | s | | | | | | Date | | | + + + +---------+------+------+-------+ | SUMAtriptan | One tab at onset of | 20 | 5 | 05/1 | | Activ | | (IMITREX) 50 mg | migraine and can | tablet | | 2/20 | | e | | tablet | repeat in 45 mins up | | | 20 | | | | | to 2 per day | | | | | | + + + +---------+------+------+-------+ | dicyclomine | Take 20 mg by mouth | | 0 | | | Activ | | (BENTYL) 20 MG | every 6 hours as | | | | | e | | tablet | needed. | | | | | | + + + +---------+------+------+-------+ | | Take 1 tablet by | | 0 | | | Activ | | diphenoxylate-atropi | mouth 4 times daily | | | | | e | | ne (LOMOTIL) | as needed. | | | | | | | 2.5-0.025 mg per | | | | | | | | tablet | | | | | | | + + + +---------+------+------+-------+ | erythromycin | | | 0 | 06/0 | | Activ | | ophthalmic ointment | | | | 5/20 | | e | | | | | | 20 | | | + + + +---------+------+------+-------+ | ondansetron | Take 4 mg by mouth. | | 0 | | | Activ | | (ZOFRAN) 4 mg tablet | | | | | | e | + + + +---------+------+------+-------+ | chlorzoxazone | Take 1 tablet by | 120 | 0 | 09/1 | | Activ | | (PARAFON FORTE) 500 | mouth every 6 hours | tablet | | 5/20 | | e | | mg | as needed for Muscle | | | 20 | | | | tabletIndications: | spasms. | | | | | | | Chronic bilateral | | | | | | | | low back pain with | | | | | | | | bilateral sciatica, | | | | | | | | Acute right-sided | | | | | | | | low back pain with | | | | | | | | right-sided sciatica | | | | | | | + + + +---------+------+------+-------+ | predniSONE | Take 6 tabs (60 mg) | 40 | 0 | 03/02 | | Activ | | (DELTASONE) 10 mg | QD for 3 days - then | tablet | | 20 | | e | | tabletIndications: | 4 tabs (40 mg) QD | | | 20 | | | | Acute right-sided | for 3 days - then 2 | | | | | | | low back pain with | tabs (20 mg) QD for | | | | | | | right-sided sciatica | 3 days - then 1 tab | | | | | | | | (10 mg) QD for 3 | | | | | | | | days. | | | | | | + + + +---------+------+------+-------+ | DULoxetine | Take 2 capsules by | 60 | 5 | 03/02 | | Activ | | (CYMBALTA) [address] | mouth nightly. | capsule | | 5/20 | | e | | capsuleIndications: | | | | 20 | | | | Chronic bilateral | | | | | | | | low back pain with | | | | | | | | bilateral sciatica, | | | | | | | | Fibromyalgia, | | | | | | | | Migraine without | | | | | | | | aura and without | | | | | | | | status migrainosus, | | | | | | | | not intractable | | | | | | | + + + +---------+------+------+-------+ | albuterol 90 | | | 0 | 04/2 | | Activ | | mcg/puff inhaler | | | | 1/20 | | e | | | | | | 20 | | | + + + +---------+------+------+-------+ | | | | 0 | 05/0 | | Activ | | HYDROcodone-acetamin | | | | 4/20 | | e | | ophen (NORCO) 5-325 | | | | 20 | | | | mg per tablet | | | | | | | + + + +---------+------+------+-------+ | hyoscyamine | | | 0 | 04/2 | | Activ | | (LEVSIN) 0.125 MG | | | | 9/20 | | e | | tablet | | | | 20 | | | + + + +---------+------+------+-------+ | montelukast | | | 0 | 04/2 | | Activ | | (SINGULAIR) 10 mg | | | | 7/20 | | e | | tablet | | | | 20 | | | + + + +---------+------+------+-------+ | omeprazole | | | 0 | 04/2 | | Activ | | (PRILOSEC) 20 mg | | | | 1/20 | | e | | capsule | | | | 20 | | | + + + +---------+------+------+-------+ | ondansetron | | | 0 | 04/2 | | Activ | | (ZOFRAN ODT) 4 mg | | | | 5/20 | | e | | disintegrating | | | | 20 | | | | tablet | | | | | | | + + + +---------+------+------+-------+ | Ascorbic Acid | Take 100 mg by mouth | | 0 | | | Activ | | (VITAMIN C) 100 MG | Daily. | | | | | e | | tablet | | | | | | | + + + +---------+------+------+-------+ | diphenhydrAMINE | Take 25 mg by mouth | | 0 | | | Activ | | (BENADRYL ALLERGY) | every 6 hours as | | | | | e | | 25 mg tablet | needed for Itching. | | | | | | + + + +---------+------+------+-------+ | acetaminophen | Take 500 mg by mouth | | 0 | | | Activ | | (TYLENOL) 500 mg | every 6 hours as | | | | | e | | tablet | needed for Pain. | | | | | | + + + +---------+------+------+-------+ | pregabalin | Take 1 capsule by | 90 | 4 | 05/0 | | Activ | | (LYRICA) 150 MG | mouth 3 times daily. | capsule | | 6/20 | | e | | capsule | | | | 20 | | | + + + +---------+------+------+-------+ | DULoxetine | One tab at bedtime | 30 | 5 | 05/1 | 09/1 | Disco | | (CYMBALTA) [address] | | capsule | | 2/20 | 5/20 | ntinu | | capsule | | | | 20 | 20 | ed | | | | | | | | (Reor | | | | | | | | neptali | | | | | | | | (no | | | | | | | | Cance | | | | | | | | l Rx | | | | | | | | msg)) | + + + +---------+------+------+-------+ | cyclobenzaprine | | | 0 | 09/0 | 03/02 | Disco | | (FLEXERIL) 10 mg | | | | 3/20 | 5/20 | ntinu | | tablet | | | | 20 | 20 | ed | | | | | | | | (Ther | | | | | | | | apy | | | | | | | | compl | | | | | | | | eted) | + + + +---------+------+------+-------+ | orphenadrine | | | 0 | 04/2 | 03/02 | Disco | | (NORFLEX) 100 mg ER | | | | 3/20 | 5/20 | ntinu | | tablet | | | | 20 | 20 | ed | | | | | | | | (Estrellita | | | | | | | | ent | | | | | | | | Not | | | | | | | | Takin | | | | | | | | g) | + + + +---------+------+------+-------+ + + +-------+ +------+------+-------+ | Hospital, Clinic, or | Ordered | Route | Frequency | Star | End | Statu | | Other Facility | Dose | | | t | Date | s | | Administered | | | | Date | | | | Medication | | | | | | | + + +-------+ +------+------+-------+ | ketorolac | 60 mg | IM | ONCE | 03/02 | 03/02 | Ended | | (TORADOL) injection | | | | 5/20 | 5/20 | | | 60 mgIndications: | | | | 20 | 20 | | | Chronic bilateral | | | | | | | | low back pain with | | | | | | | | bilateral sciatica | | | | | | | + + +-------+ +------+------+-------+ Active Problems + + | Patient Care Coordination Note | + + | Current treatment: sumatriptan | | Failed Therapies: duloxetine and gabapentin | | MRI Brain 10/2019: No focal white matter abnormality is identified. Normal exam. | + + + + + | Problem | Noted Date | + + + | Neck pain, bilateral | 11/05/2019 | + + + + + | Overview: Current treatment: Pain management as per [facility] | | Dalles. Aries Astorga for pain and Orhenadrine for spasms. Lyrica | | 150mg TID. Discussed TPI Failed therapy: has tried tizanidine | | and cyclobenzaprine Xray Cervical 10/2019: No acute process. | | Mild degenerative change of the lower cervical spine. Reversal of | | normal cervical lordosis may be related to positional artifact | | versus muscle spasm. Lower lumbar facet hypertrophy. Mild apex | | left lumbar scoliosis. | + + + + + | Thoracic spine pain | 11/05/2019 | + + + + + | Overview: Current treatment: Pain management as per [facility] | | [place]es. Aries Astorga for pain and Orhenadrine for spasms. Lyrica | | 150mg TID. Discussed TPI Failed therapy: has tried tizanidine | | and cyclobenzaprine Xray Thoracic 10/2019: No acute process. | | Mild degenerative change of the lower cervical spine. Reversal of | | normal cervical lordosis may be related to positional artifact | | versus muscle spasm. Lower lumbar facet hypertrophy. Mild apex | | left lumbar scoliosis. | + + + + + | Dizziness | 11/05/2019 | + + + | Migraine without aura and without status migrainosus, not | 11/05/2019 | | intractable | | + + + + + | Overview: Current treatment: sumatriptan for onset of | | migraine Failed therapy: Has tried duloxetine and gabapentin | | with side effects MRI Brain 10/2019: No focal white matter | | abnormality is identified. Normal exam. | + + + + + | Obesity | 08/21/2017 | + + + | Irritable bowel syndrome with diarrhea | 04/24/2017 | + + + + + | Overview: Med Trials:Dicyclomine - helps abd pain someAlign | | - no helpTCA - [facility] | | without benefitCymbalta - on for fibromyalgia, no definite | | helpColestipol - constipation at very low doses | |Cymbalta - on for fibromyalgia, no definite help | |Colestipol - constipation at very low doses | + + + + + | Fibromyalgia | 11/28/2016 | + + + + + | Overview: Diagnosed by Dr.Pak contreras [facility] | | On cymbalta | + + + + + | S/P endometrial ablation | 10/19/2016 | + + + | Chronic bilateral low back pain without sciatica | 07/24/2016 | + + + + + | Overview: Current treatment: Pain management as per Janak | | Jani Astorga. Aries for pain and Orhenadrine for spasms. Lyrica | | 150mg TID. Discussed TPI Failed therapy: has tried tizanidine | | and cyclobenzaprine Xray Lumbar 10/2019: No acute process. Mild | | degenerative change of the lower cervical spine. Reversal of | | normal cervical lordosis may be related to positional artifact | | versus muscle spasm. Lower lumbar facet hypertrophy. Mild apex | | left lumbar scoliosis. | + + + + + | Smoker | 07/24/2016 | + + + | Palpitations | 03/09/2016 | + + + | Pericardial cyst, congenital | 02/08/2016 | + + + | Tachycardia | 03/24/2015 | + + + | Hydronephrosis of right kidney | 02/15/2015 | + + + + + | Overview: Mild | | Mild | + + + + + | Kidney stone complicating | 02/11/2015 | + + + + + | Overview: Since 2002 | | Since 2002 | + + + + + | Supervision of high-risk with insufficient | 02/10/2015 | | care | | + + + + + | Overview: Pt with hydronephrosis | | Some pain, but relatively stable | | Some contractions | | Cx 50%/1/-3/vtx/mid/firm | | Watch for labor | | Induction on 02/14 | | | | Last Assessment & Plan: | | Pt with hydronephrosis with pain and was taking narcotics. | | Some pain, but relatively stable | | Some contractions | | Cx 50%/1/-3/vtx/mid/firm | | Watch for labor | | Induction on 02/14 | | Possible dilated 3rd ventricle () - recheck after delivery | | Followed in [facility] | + + + + + | Asthma | 04/06/2014 | + + + | Chronic epigastric pain | 04/06/2014 | + + + + + | Overview: Saw [facility] GI EGD/colonoscopy- told stomach | | has inflammation and has working diagnosis IBS.08/12/15t-spine ct | | showed- "8mm hypodense segment 2 hepatic focus. This likely | | represents a tiny incidental hepatic cyst"12/26/[address]- neg | + + + + + | PTSD (post-traumatic stress disorder) | 04/06/2014 | + + + + + | Overview: zoloft (suicidal), paxil (didn't help), prozac | | (x15yrs, started to not work as well), lexapro | | (suicidal)Currently on cymbalta since 2016 | + + + + + | Mass of mediastinum | 07/29/2009 | + + + Encounters +--------+ + + + + | Date | Type | Specialty | Care Team | Description | +--------+ + + + + | 03/17/ | Telephone | Neurology | Ирина Barnes RN | Triage | | 2019 | | | | | +--------+ + + + + | 03/16/ | Office | Neurology | Roman, | Chronic bilateral | | 2019 | Visit | | ESTRADA Bae | low back pain with | | | | | | bilateral sciatica | | | | | | (Primary Dx); Acute | | | | | | right-sided low back | | | | | | pain with | | | | | | right-sided | | | | | | sciatica; | | | | | | Fibromyalgia; | | | | | | Migraine without | | | | | | aura and without | | | | | | status migrainosus, | | | | | | not intractable | +--------+ + + + + | 03/12/ | Telephone | Neurology | Roman, | Pain | | 2019 | | | ESTRADA Bae | | +--------+ + + + + from Last 3 Months Family History + + +------+ + | Medical History | Relation | Name | Comments | + + +------+ + | Heart disease | Father | | | + + +------+ + | Hypertension | Father | | | + + +------+ + | No known problems | Mother | | | + + +------+ + + +------+ + + | Relation | Name | Status | Comments | + +------+ + + | Father | | | | + +------+ + + | Mother | | Alive | | + +------+ + + Social History + +-------+ +--------+------+ [...] | | | + +---+---+---+ + + | Tobacco Cessation: Ready to Quit: No; Counseling Given: Yes | + + + + +---------+ + | Alcohol Use | Drinks/Week | oz/Week | Comments | + + +---------+ + | Not Currently | | | maybe once a year | + + +---------+ + + + + | Sex Assigned at | Date Recorded | | | | + + + | Female | 03/14/2020 8:21 PM PDT | + + + Last Filed Vital Signs + + + + + | Vital Sign | Reading | Time Taken | Comments | + + + + + | Blood Pressure | 96/65 | 03/16/2020 9:23 AM | | | | | PDT | | + + + + + | Pulse | 86 | 03/16/2020 9:23 AM | | | | | PDT | | + + + + + | Temperature | 36.2 C (97.1 F) | 03/16/2020 9:23 AM | | | | | PDT | | + + + + + | Respiratory Rate | 16 | 03/16/2020 9:23 AM | | | | | PDT | | + + + + + | Oxygen Saturation | 99% | 03/16/2020 9:23 AM | | | | | PDT | | + + + + + | Inhaled Oxygen | - | - | | | Concentration | | | | + + + + + | Weight | 81.6 kg (180 lb) | 03/16/2020 9:23 AM | | | | | PDT | | + + + + + | Height | 167.6 cm (5' 6") | 03/16/2020 9:23 AM | | | | | PDT | | + + + + + | Body Mass Index | 29.05 | 03/16/2020 9:23 AM | | | | | PDT | | + + + + + Plan of Treatment + + + + + | Health Maintenance | Due Date | Last | Comments | | | | Done | | + + + + + | Hepatitis C | | | | | Screening | 2 | | | + + + + + | Vaccine: | | | | | Pneumococcal 19-64 | 8 | | | | (1 of 1 - PPSV23) | | | | + + + + + | Cervical Cancer | | | | | Screening (Pap) | 2 | | | + + + + + | Vaccine: Influenza | | | | | (#1) | 0 | | | + + + + + | Med Mgmt: Cr | | 11/05/19 | | | | 1 | 20 | | + + + + + | Med Mgmt: eGFR | | 11/05/19 | | | | 1 | 20 | | + + + + + | Medication | | 11/05/19 | | | Management | 1 | 20 | | + + + + + | Vaccine: | | 12/05/19 | | | Dtap/Tdap/Td (6 - | 0 | 20, | | | Td) | | 03/04/19 | | | | | 96, | | | | | 11/17/18 | | | | | 87, | | | | | Addition | | | | | al | | | | | history | | | | | exists | | + + + + + Results Not on filefrom Last 3 Months Insurance + +--------+ +--------+ +---------+--------+ | Payer | Benefi | Subscriber | Effect | Phone | Address | Type | | | t Plan | ID | ravinder | | | | | | / | | Dates | | | | | | Group | | | | | | + +--------+ +--------+ +---------+--------+ | [employer] | [employer] | [id number] | 06/19/ | [phone] | | Medica | | MEDICAID HMO | HEALTH | | 2019-P | 1 | | id | | | MDCD | | resent | | | | | | [place] | | | | | | + +--------+ +--------+ +---------+--------+ | [employer] | [employer] | [id number] | 11/06/19 | [phone] | | Medica | | MEDICAID HMO | HEALTH | | 20-Pre | 1 | | id | | | MDCD | | sent | | | | | | [place] | | | | | | + +--------+ +--------+ +---------+--------+ + +--------+ +--------+ + + | Guarantor Name | Accoun | Relation to | Date | Phone | Billing Address | | | t Type | Patient | of | | | | | | | | | | + +--------+ +--------+ + + | Azucena Araiza | Person | Self [birth year] | | [address] | | | al/Fam | | 1980 | [phone] | [place] [address] | | | amina | | | 5 (Home) | | + +--------+ +--------+ + + | Azucena Araiza | Person | Self | [birth year] | | [address] | | | al/Fam | | 1980 | [phone] | [place] [address] | | | amina | | | 5 (Home) | | + +--------+ +--------+ + + | Azucena Araiza | Person | Self | [birth year] | | [address] | | | al/Fam | | 1980 | [phone] | [place] [address] | | | amina | | | 5 (Home) | | + +--------+ +--------+ + + Advance Directives + + + + + | Type | Date Recorded | Patient | Explanation | | | | Integration Developer | | + + + + + | Power of | | | | | Mask Layout Designer | | | | + + + + + | Advance | | | | | Directive | | | | + + + + +
--- OUTSIDE RECORDS SUMMARY | ~2020-03-17 | XMS | Encounter Summary ---
Demographics + + + | Address | [address] [place] [address] [place] | | | [place] [address] | + + + | Home Phone | | + + + | Preferred Language | Unknown | + + + | Marital Status | Unknown | + + + | Caodaism Affiliation | Unknown | + + + | Race | White | + + + | Ethnic Group | Not or | + + + Author + + + | Author | [facility] | | | and [place] | + + + | Organization | [facility] | | | and [place] | + + + | Address | Unknown | + + + | Phone | Unavailable | + + + Support + + +---------+ + | Name | Relationship | Address | Phone | + + +---------+ + | Naag Grace | ECON | Unknown | | + + +---------+ + Care Team Providers + +------+ + | Care Vest Backer Name | Role | Phone | + +------+ + PCP | Unavailable | + +------+ + Encounter Details +--------+ + + + + | Date | Type | Department | Care Team | Description | +--------+ + + + + | 07/19/ | Emergency | [facility] | Brian Gordon, | Abdominal Pain, | | 2008 | | [facility] | MD [address] | Unspecified Site | | | | EMERG[facility]Y CENTER | [place] [address] | | | | | [address] | [phone] | | | | | [place], [place] | | | | | | [address] | | | | | | [phone] | | | +--------+ + + + [...] | + +--------+ + + + | CT ABDOMEN PELVIS W | Routin | 07/19/2008 | | Results for this | | CONTRAST | e | 6:52 PM | | procedure are in the | | | | PST | | results section. | + +--------+ + + + documented in this encounter Results CT Abdomen Pelvis w Contrast (07/19/2008 6:52 PM PST) + + | Specimen | + + | | + + + + + | Narrative | Performed At | + + + | [id number] | | | Page 1 Diagnostic Outsourced | | | ED ED 1/ | | | EMR [facility] | | | CENTER NAME: [place] [address] | | | | | | | | | DATE OF : 1980 ORDER NUMBER: | | | [id number] EXAM DATE/TIME: 07/19/2008 04:46 P ORDERING PHYSICIAN: | | | BRIAN GORDON ORDER DETAIL: [id number] / / HCT EXAM DESCRIPTION: | | | CT ABDOMEN EN/PELVIS EN | | | | | | CT ABDOMEN AND PELVIS WITH CONTRAST 07/19/2008 CLINICAL HISTORY | | | Abdominal pain. COMPARISON None. TECHNIQUE Axial imaging | | | through the abdomen and pelvis utilizing 125 mL Isovue 300 IV. | | | FINDINGS There are several probable pericardial cysts along left | | | superior aspect of the heart measuring up to 2.2 x 1.4 cm. | | | Dependent bibasilar atelectasis. Status post cholecystectomy. | | | Patent portal vein. The liver, adrenal glands, pancreas, kidneys, | | | and spleen appear unremarkable. Normal appearing retrocecal | | | appendix. Right ureter appears unremarkable with distal portion | | | filled with contrast. Urinary bladder appears grossly unremarkable. | | | There is a probable left ovarian follicle measuring 2 x 1.5 cm. Right | | | ovary and uterus appear grossly unremarkable. IMPRESSION 1. NO | | | ACUTE INFLAMMATORY PROCESS DEMONSTRATED. 2. PROBABLE 2 CM LEFT | | | OVARIAN FOLLICLE. ULTRASOUND FOR FURTHER EVALUATION IF CLINICALLY | | | INDICATED. 3. SEVERAL PROBABLE LEFT PERICARDIAL CYSTS. Read by | | | MOUNIKA CRUZ MD 07/19/2008 05:00 P Electronically Signed by MOUNIKA | | | Nilda CRUZ MD 07/20/2008 01:37 P P DT: | | | 07/20/2008 11:00 A [facility]/[id number]/ cc: BRIAN GORDON MD | | | PHYSICIAN ED MOUNIKA CRUZ MD | | + + + + + | Procedure Note | + + | Amado, Rad Conversion - 02/24/2019 4:11 AM PDT | | [id number] Page 1 | | Diagnostic Outsourced ED ED 1/ | | EMR | | [facility] NAME: AZUCENA OWENS | | [place] [address] | | | | DATE OF : 1980 | | | | ORDER NUMBER: [id number] | | EXAM DATE/TIME: 07/19/2008 04:46 P | | ORDERING PHYSICIAN: BRIAN GORDON | | ORDER DETAIL: [id number] / / HCT | | EXAM DESCRIPTION: CT ABDOMEN EN/PELVIS EN | | | | CT ABDOMEN AND PELVIS WITH CONTRAST 07/19/2008 | | | | CLINICAL HISTORY | | Abdominal pain. | | | | COMPARISON | | None. | | | | TECHNIQUE | | Axial imaging through the abdomen and pelvis utilizing 125 mL Isovue 300 | | IV. | | | | FINDINGS | | There are several probable pericardial cysts along left superior aspect | | of the heart measuring up to 2.2 x 1.4 cm. | | | | Dependent bibasilar atelectasis. | | | | Status post cholecystectomy. | | | | Patent portal vein. | | | | The liver, adrenal glands, pancreas, kidneys, and spleen appear | | unremarkable. | | | | Normal appearing retrocecal appendix. | | | | Right ureter appears unremarkable with distal portion filled with | | contrast. Urinary bladder appears grossly unremarkable. There is a | | probable left ovarian follicle measuring 2 x 1.5 cm. Right ovary and | | uterus appear grossly unremarkable. | | | | IMPRESSION | | 1. NO ACUTE INFLAMMATORY PROCESS DEMONSTRATED. | | 2. PROBABLE 2 CM LEFT OVARIAN FOLLICLE. ULTRASOUND FOR FURTHER | | EVALUATION IF CLINICALLY INDICATED. | | 3. SEVERAL PROBABLE LEFT PERICARDIAL CYSTS. | | | | Read by | | MOUNIKA CRUZ MD 07/19/2008 05:00 P | | Electronically Signed by | | MOUNIKA CRUZ MD 07/20/2008 01:37 P | | | | P | | A | | [facility]/[id number]/ | | cc: BRIAN GORDON MD | | PHYSICIAN ED | | MOUNIKA CRUZ MD | + + documented in this encounter Visit Diagnoses + + | Diagnosis | + + | Abdominal pain, unspecified site | + + documented in this encounter"
--- OUTSIDE RECORDS SUMMARY | ~2020-03-17 | XMS | Encounter Summary ---
Demographics + + + | Address | [address] [place] [address] N | | | [place] [address] | + + + | Home Phone | | + + + | Preferred Language | Unknown | + + + | Marital Status | Unknown | + + + | Episcopalian Affiliation | Unknown | + + + | Race | White | + + + | Ethnic Group | Not or | + + + Author + + + | Author | [facility] | | | and [place] | + + + | Organization | [facility] | | | and [...] Team Providers + +------+ + | Care Crane Follower Name | Role | Phone | + +------+ + | Mireya Krishnamurthy | PCP | | + +------+ + Reason for Visit + +--------+ + | Reason | Onset | Comments | | | Date | | + +--------+ + | Results, Imaging | 11/18/ | | | | 2019 | | + +--------+ + Encounter Details +--------+ + + + + | Date | Type | Department | Care Team | Description | +--------+ + + + + | 11/18/ | Telephone | [facility] | Glenn Bro MD | Results, Imaging | | 2020 | | [facility] | [address] | | | | | CLIN[facility] [address] | [place], [place] | | | | | [address] [place], | [address] | | | | | [place] [address] | | | | | | [phone] | | | +--------+ + + + [...] Telephone Encounter - Glenn Bro MD - 2019 4:36 PM PDTcalled and gave MRI of br mehdirandee coolnarayan and advised tpo continue lyrica and cymbalta for fibromyalgiaElectronically sign ed by Glenn Bro MD at 2019 4:39 PM PDTdocumented in this encounter Plan of Treatment Not on filedocumented as of this encounter Visit Diagnoses Not on filedocumented in this encounter"
--- OUTSIDE RECORDS SUMMARY | ~2020-03-17 | XMS | Encounter Summary ---
Demographics + + + | Address | [address] [place] [address] N | | | [place] [address] | + + + | Home Phone | | + + + | Preferred Language | Unknown | + + + | Marital Status | Unknown | + + + | Mu-Ism Affiliation | Unknown | + + + | Race | White | + + + | Ethnic Group | Not or | + + + Author + + + | Author | [facility] | | | and [place] | + + + | Organization | [facility] | | | [...] Team Providers + +------+ + | Care Purchasing Buyer Name | Role | Phone | + +------+ + | Mireya Krishnamurthy | PCP | | + +------+ + Reason for Referral Self-referral (Routine) + + + + + + + | Status | Reason | Specialty | Diagnoses / | Referred By | Referred To | | | | | Procedures | Contact | Contact | + + + + + + + | Authorized | Specialty | Physical | Diagnoses | [facility] | | | Services | Therapy | Chronic | [facility], | [facility] | | | Required | | bilateral | [facility] [address] | PHYSICAL | | | | | low back | [address] | [facility]AP[facility] [address] | | | | | pain with | [place], [place] | [place] | | | | | bilateral | [id number] | [place], [place] | | | | | sciatica | Phone: | [phone] | | | | | Acute | [phone] | Phone: | | | | | right-sided | Fax: | [phone] | | | | | low back | [phone] | Fax: | | | | | pain with | | [phone] | | | | | right-sided | | | | | | | sciatica | | | + + + + + + + Reason for Visit + + + | Reason | Comments | + + + | Back Pain | | + + + Encounter Details +--------+---------+ + + + | Date | Type | Department | Care Team | Description | +--------+---------+ + + + | 03/16/ | Office | [facility] | [facility], | Chronic bilateral | | 2020 | Visit | [facility] | Kathia, [facility] [address] | low back pain with | | | | [facility] [address] [place], | bilateral sciatica | | | | [place], | [place] [address] | (Primary Dx); Acute | | | | [place] [address] | [phone] | right-sided low back | | | | [phone] | | pain with | | | | | | right-sided | | | | | | sciatica; | | | | | | Fibromyalgia; | | | | | | Migraine without | | | | | | aura and without | | | | | | status migrainosus, | | | | | | not intractable | +--------+---------+ + + + Social History + +-------+ [...] + + + documented in this encounter Patient Instructions Patient Instructions Kathia Owens, ESTRADA - 03/16/2020 9:15 AM PDT General Neck and Back Pain Both neck and back pain are usually caused by injury to the muscles or ligaments of the spi ne. Sometimes the disks that separate each bone of the spine may cause pain by pressing on a nearby nerve. Back and neck pain may appear after a sudden twisting or bending force (such as in a car accident), or sometimes after a simple awkward movement. In either case, muscle spasm is often present and adds to the pain. Acute neck and back pain usually gets better in 1 to 2 weeks. Pain related to disk disease, arthritis in the spinal joints, or narrowing of the spinal canal (spinal stenosis) can beco me chronic and last for months or years. Back and neck pain are common problems. Most people feel better in 1 or 2 weeks, and most o f the rest in 1 to 2 months. Most people can remain active. People have anddescribe pain differently. Pain can be sharp, stabbing, shooting, aching, cramping, or burning Movement, standing, bending, lifting, sitting, or walking may worsen the pain Pain can be limited to one spot or area, or it can be more generalized Pain can spread upward, downward, to the front, or go down your arms or legs Muscle spasm may occur. Most of the time mechanical problems with the muscles or spine cause the pain. It's usually caused by an injury, whether known or not, to the muscles or ligaments. Pain without an inj ury is not common. But it can sometimes be caused by a health problem such as kidney stones or an infection. Pain is usually related to physical activity such as sports, exercise, work , or normal activity. Sometimes it can occur without an identifiable cause. This can happen simply by stretching or moving wrong, without noting pain at the time. Other causes include: Overexertion, lifting, pushing, pulling incorrectly or too aggressively. Sudden twisting, bending or stretching from an accident (car or fall), or accidental mov ement. Poor posture Poor conditioning, lack of regular exercise Spinal disc disease or arthritis Stress , or illness like appendicitis, bladder or kidney infection, pelvic infections Home care Forneck pain:Use a comfortable pillow that supports the head and keeps the spine in a neutral position. The position of the head should not be tilted forward or backward. When in bed, try to find a position of comfort. A firm mattress is best. Try lying flat on your back with pillows under your knees. You can also try lying on your side with your kn ees bent up towards your chest and a pillow between your knees. At first, don't try to stretch out the sore spots. If there is a strain, it's not like t he good soreness you get after exercising without an injury. In this case, stretching may ma ke it worse. Don't sit for long periods, as inlong car rides orother travel. This puts more stres s on the lower back than standing or walking. During the first 24 to 72 hours after an injury, apply an ice pack to the painful area f or 20 minutes and then remove it for 20 minutes over a period of 60 to 90 minutes or several times a day. You can alternate ice and heat therapies. Talk with your healthcare provider about the b est treatment for your back or neck pain. As a safety precaution, don't use a heating pad at bedtime. Sleeping with a heating pad can lead to skin brunner or tissue damage. Therapeutic massage can help relax the back and neck muscles without stretching them. Be aware of safe lifting methods and don't lift anything over 15 pounds until all the pa in is gone. Medicines Talk to your healthcare provider before using medicine, especially if you have other medica l problems or are taking other medicines. You may use nlnc-nca-jhoxrwp medicine to control pain, unless another pain medicine was prescribed. Talk with your doctor first if you have chronic conditions like diabetes, liver or kidney disease, stomach ulcers, gastrointestinal bleeding, or are taking blood thinner me dicines. Be careful if you are given pain medicines, narcotics, or medicine for muscle spasm. The y can cause drowsiness, and can affect your coordination, reflexes, and judgment. Don't driv e or operate heavy machinery. Follow-up care Follow up with your healthcare provider, or as advised. You may need physical therapy or fu rther tests. If X-rays were taken, you will be told of any new findings that may affect your care. Call 911 Call 911 if any of the following occur: Trouble breathing Confusion Very drowsy or trouble awakening Fainting or loss of consciousness Rapid or very slow heart rate Loss of bowel or bladder control When to seek medical advice Call your healthcare provider right away if any of these occur: Pain becomes worse or spreads into your arms or legs Weakness, numbness or pain in one or both arms or legs Numbness in the groin area Trouble walking Fever of 100.4F (38C) or higher, or as directed by your healthcare provider [employer] last reviewed this educational content on 04/01/201919995006-7324 [employer]. [address] [place] [id number]. All righ ts reserved. This information is not intended as a substitute for professional medical care. Always follow your healthcare professional's instructions. documented in this encounter Progress Notes Kathia Owens FNP - 03/16/2020 9:15 AM PDT Patient: Azucena Araiza Medical Record: [id number] Date of Services: 03/16/2020 Referring Doctor: RICK Lara Chief Complaint: chronic neck and low back pain History of Present Illness: The patient presents to the Neurology Clinic today for follow u p. The patient has a history of chronic cervical, thoracic and lumbosacral spine strain and fi bromyalgia. The patient is currently a patient of the pain clinic at the [facility] . The patient reports that her symptoms began in 2012 when she fell backwards landing on he r buttocks and fracturing her tailbone. Since that time, she has had chronic pain throughou t her entire body. X-rays of the cervical, thoracic and lumbar spine were performed in October 2019 which showed no acute process. She does have mild degenerative changes of the lower ce rvical spine and reversal of normal cervical lordosis. This may be related to positional ar tifact or muscle spasm. There is lower lumbar facet hypertrophy and mild apex left lumbar s coliosis. The patient has tried numerous medications including nonsteroidal anti-inflammato vikas which caused significant GI symptoms, or orphendramine, cyclobenzaprine, tizanidine, Ro baxin. She also currently receives [place] 5/325 mg tablets 4 times daily for severe pain. H owever, she reports that this medication is no longer helping with her pain. Over the past 1 week the patient reports an increase in her low back pain symptoms, specifically in the ri ght lower back with pain radiating down the back of her leg to her feet. She describes the pain as sharp/stabbing in nature. She reports that she was able to see her primary care pro vider this week who performed x-rays. She reports that there were no acute injuries found o n the x-ray. She reports that she was told that there were no significant changes on these images. The patient was previously referred to physical therapy but reports that she was no t able to complete physical therapy due to personal reasons and the current global pandemic. The patient is interested in additional interventions to help with her chronic pain sympto ms. The patient also has a history of migraine headaches, without aura, not intractable. The p sheridan is currently using duloxetine 40 mg at night, and Lyrica 450 mg/day in divided doses for headache prophylaxis. She also uses Imitrex 50 mg as an abortive agent at the onset of a headache. The patient denies any current problems with her migraine control. Patient did have an MRI of the brain done in October 2019 which showed no focal white matter abnormalities. MRI of the brain was within normal limits. Encounter Problem List Chronic bilateral low back pain with bilateral sciatica (Primary) - Physical Therapy - Ambulatory Referral - chlorzoxazone (PARAFON FORTE) 500 mg tablet; Take 1 tablet by mouth every 6 hours as needed for Muscle spasms. Dispense: 120 tablet; Refill: 0 - DULoxetine (CYMBALTA) [address] capsule; Take 2 capsules by mouth nightly. Dispense: 60 capsule; Refill: 5 - ketorolac (TORADOL) injection 60 mg Acute right-sided low back pain with right-sided sciatica - Physical Therapy - Ambulatory Referral - chlorzoxazone (PARAFON FORTE) 500 mg tablet; Take 1 tablet by mouth every 6 hours as needed for Muscle spasms. Dispense: 120 tablet; Refill: 0 - predniSONE (DELTASONE) 10 mg tablet; Take 6 tabs (60 mg) QD for 3 days - then 4 tabs (40 mg) QD for 3 days - then 2 tabs (20 mg) QD for 3 days - then 1 tab (10 mg) QD for 3 days . Dispense: 40 tablet; Refill: 0 Fibromyalgia Overview: Diagnosed by Dr.Pak contreras [facility] On cymbalta Orders: - DULoxetine (CYMBALTA) [address] capsule; Take 2 capsules by mouth nightly. Dispense: 60 capsule; Refill: 5 Migraine without aura and without status migrainosus, not intractable Overview: Current treatment: sumatriptan for onset of migraine Failed therapy: Has tried duloxetine and gabapentin with side effects MRI Brain 10/2019: No focal white matter abnormality is identified. Normal exam. Orders: - DULoxetine (CYMBALTA) [address] capsule; Take 2 capsules by mouth nightly. 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 of heart COLONOSCOPY GALLBLADDER SURGERY HAND SURGERY right 1984 hernia surgery TUBAL LIGATION Allergies Allergen Reactions Morphine Anaphylaxis and Hives Adhesive & Tape Rash Needs benadryl before using any adhesives (IV dressings OK) Promethazine Hives Codeine Hives Ibuprofen Nausea And Vomiting acetaminophen albuterol vitamin C chlorzoxazone dicyclomine diphenhydrAMINE diphenoxylate-atropine DULoxetine erythromycin HYDROcodone-acetaminophen hyoscyamine montelukast omeprazole ondansetron ondansetron predniSONE pregabalin SUMAtriptan Review of Symptoms: CONSTITUTIONAL: No weight loss, fever, chills, weakness or fatigue. HEENT: Eyes: No visual loss, blurred vision, double vision or yellow sclerae. Ears, Nose, Throat: No hearing loss, sneezing, congestion, runny nose or sore throat. SKIN: No rash or itching. CARDIOVASCULAR: No chest pain, chest pressure or chest discomfort. No palpitations or edema . RESPIRATORY: No shortness of breath, cough or sputum. GASTROINTESTINAL: No anorexia, nausea, vomiting or diarrhea. No abdominal pain or blood. GENITOURINARY: No burning on urination. NEUROLOGICAL: No headache, dizziness, syncope, paralysis, ataxia, numbness or tingling in t he extremities. No change in bowel or bladder control. + History of migraine headaches, not currently problematic MUSCULOSKELETAL: + Increased low back pain and right-sided radiculopathy PSYCHIATRIC: No depression or anxiety. Neurological Examination: Vitals: 03/16/20 0923 BP: 96/65 Pulse: 86 Resp: 16 Temp: 36.2 C (97.1 F) PainSc: 7 PainLoc: Back General Appearance: The patient is alert and in no acute distress. Mental status: The patient is alert, attentive, and oriented. Speech is clear and fluent with good repetit ion, comprehension, and naming. Cranial nerves: CN II: Visual kearney are full to confrontation. Fundoscopic exam is normal with sharp discs and no vascular changes. Pupils are 4 mm and briskly reactive to light with accomodation. CN III, IV, : Gaze in conjugate. No blurred or double vision. No visual field cuts. EOM intact. CN V: Facial sensation is intact. CN VII: Face is symmetric with normal eye closure and smile. CN VII: Hearing is normal to rubbing fingers CN IX, X: Palate elevates symmetrically. Phonation is normal. CN XI: Head turning and shoulder shrug are intact CN XII: Tongue is midline with normal movements and no atrophy. Motor: There is no pronator drift of out-stretched arms. Muscle bulk and tone are normal. Strength is 5/5 bilaterally. Reflexes: Reflexes are 2+ and symmetric at the biceps, triceps, knees, and ankles. Sensory: Light touch, pinprick, position sense, and vibration sense are intact in fingers and toes. Coordination: Rapid alternating movements and fine finger movements are intact. There is no dysmetria on [id number]-[id number] and [id number]-[id number]. There are no abnormal or extraneous movements. Romberg is absent. Gait/Stance: Posture is normal. Gait is steady with normal steps, base, arm swing, and turning. Heel and toe walking with mild difficulty. Clinical Impression: ICD-10-CM ICD-9-CM 1. Chronic bilateral low back pain with bilateral sciatica M54.42 724.2 Physical Therapy - Ambulatory Referral M54.41 724.3 chlorzoxazone (PARAFON FORTE) 500 mg tablet G89.29 338.29 DULoxetine (CYMBALTA) [address] capsule ketorolac (TORADOL) injection 60 mg CANCELED: Physical Therapy - Ambulatory Referral 2. Acute right-sided low back pain with right-sided sciatica M54.41 724.2 Physical Therapy - Ambulatory Referral 724.3 chlorzoxazone (PARAFON FORTE) 500 mg tablet predniSONE (DELTASONE) 10 mg tablet CANCELED: Physical Therapy - Ambulatory Referral 3. Fibromyalgia M79.7 729.1 DULoxetine (CYMBALTA) [address] capsule 4. Migraine without aura and without status migrainosus, not intractable G43.009 346.10 DU Loxetine (CYMBALTA) [address] capsule Plan: Chronic low back pain: Begin physical therapy at this time. Plan to change muscle relaxer from Flexeril to Lorzone up to 4 times daily as needed for severe muscle spasms. The patien t should continue home stretching and exercise routine. The patient should continue pain ma nagement with [facility] in [place]. Increase dose of duloxetin e to 40 mg at night. Continue taking Lyrica 150 mg 3 times daily for neuropathic/radicular pain. Toradol 60 mg IM administered in clinic today for an acute flare of chronic pain symp toms. We also discussed the use of trigger point injections to help with chronic pain sympt oms. Consider MRI in the future if patient fails conservative management with chief physical therapist apy and medications. Fibromyalgia: Increase dose of duloxetine to 40 mg p.o. nightly and continue taking Lyrica 150 mg 3 times daily. Consider increasing Lyrica at next visit. Patient reports that she d oes follow-up with her therapist next week on March 25. Migraine headaches: Continue to use sumatriptan as an abortive agent. No problems at this time. Ensure proper headache hygiene. This includes: ? Avoiding skipping meals or foods that may trigger a headache for you. ? Ensure adequate sleep (6-8 hours per night). Avoid changes in sleeping pattern such as o osei sleeping, napping, or sleep deprivation. ? Manage stressors at home, work and with your family/friends that can contribute to headac he development. ? Avoid environmental triggers such as pollution, bright light, or extreme temperature rivera ges. ? Ensure adequate hydration. ? Exercise regularly. For example, aerobic exercise for at least 30 minutes three times a w [place] will help reduce frequency or severity of migraine. ? Avoid alcohol and caffeine. Follow-up in 2-3 months with me. Greater than 40 minutes of the 45 minute face to face visit was spent counseling this patie nt about symptoms, methods for managing symptoms including chronic low back pain with physic al therapy, oral medications and injections. We also discussed the use of Lyrica to help wi th chronic pain symptoms and safe doses of this medication. ESTRADA [place] Electronically signed This note was transcribed using voice recognition software. There may be speech recognitio n errors which escaped detection during review. Sumaya Boyer CC CMA - 03/16/2020 9:15 AM PDTAfter obtaining consent, and per orders of Judy eldridge NP, injection of Toradol 60 mg was given by NERY Mace CMA. Patient tolerate d well with no difficulties. Patient instructed to report any adverse reaction to ny heather edwards. Total Vial Size: 2 ml Amount Wasted: none Expiration Date: 10/21 Diagnosis: back pain Patient's own med: no Injection education declined by patient. NERY Mace CMA Sumaya Boyer CC CMA - 03/16/2020 9:15 AM PDTPatient accompanied by Naga Fierro. documented in this encounter Plan of Treatment + + +--------+ + + | Name | Type | Priori | Associated Diagnoses | Order Schedule | | | | ty | | | + + +--------+ + + | Physical Therapy - | Outpatient | Routin | Chronic bilateral | Ordered: 03/16/2020 | | Ambulatory Referral | Referral | e | low back pain with | | | | | | bilateral sciatica | | | | | | Acute right-sided | | | | | | low back pain with | | | | | | right-sided sciatica | | + + +--------+ + + documented as of this encounter Visit Diagnoses + + | Diagnosis | + + | Chronic bilateral low back pain with bilateral sciatica - Primary | + + | Acute right-sided low back pain with right-sided sciatica | + + | Fibromyalgia Mylagia and myositis, unspecified | + + | Migraine without aura and without status migrainosus, not intractable Migraine | | without aura, without mention of intractable migraine without mention of status | | migrainosus | + + documented in this encounter Administered Medications + +--------+ +-------+------+ + | Medication Order | MAR | Action | Dose | Rate | Site | | | Action | Date | | | | + +--------+ +-------+------+ + | ketorolac (TORADOL) injection | Given | 03/16/20 | 60 mg | | Glut-Lef | | 60 mg 60 mg, Intramuscular, | | 20 10:16 | | | t | | ONCE, 03/16/20 at 1015, For 1 | | AM PDT | | | | | dose | | | | | | + +--------+ +-------+------+ + +---+---+ | | | +---+---+ documented in this encounter
--- OUTSIDE RECORDS SUMMARY | ~2020-03-17 | XMS | Encounter Summary ---
Demographics + + + | Address | [address] | | | [place] [address] | + + + | Home Phone | | + + + | Preferred Language | Unknown | + + + | Marital Status | Single | + + + | Jainism Affiliation | NON | + + + | Race | White | + + + | Ethnic Group | Not or | + + + Author + + + | Author | [facility] | + + + | Organization | [facility] | + + + | Address | Unknown | + + + | Phone | Unavailable | + + + Support + + +---------+ + | Name | Relationship | Address | Phone | + + +---------+ + | Asim Garcia | ECON | Unknown | | + + +---------+ + Care Team Providers + +------+ + | Care Assembler Knife Name | Role | Phone | + +------+ + | Arturo Tony PREANALYTICS TEAM LEAD | PCP | | + +------+ + Encounter Details +--------+------+ + + + | Date | Type | Department | Care Team | Description | +--------+------+ + + + | 01/06/ | Lab | Laboratory at [facility] | | Nephrolithiasis | | 2014 | | [address] | | | | | | [facility] | | | | | | [place], [address] [place] [address] | | | | | | [place], [place] | | | | | | [address] | | | | | | [phone] | | | +--------+------+ + + + Social History + + [...] | + +--------+ + + + | URINE CULTURE WORKUP | Routin | 01/06/2015 | Nephrolithiasis | Results for this | | | e | 2:50 PM | | procedure are in the | | | | PDT | | results section. | + +--------+ + + + | CULTURE, URINE [facility] | Routin | 01/06/2015 | Nephrolithiasis | Results for this | | | e | 2:50 PM | | procedure are in the | | | | PDT | | results section. | + +--------+ + + + | CBC (HEMOGRAM) ONLY | Routin | 01/06/2015 | Nephrolithiasis | Results for this | | | e | 2:50 PM | | procedure are in the | | | | PDT | | results section. | + +--------+ + + + | BASIC METABOLIC SET | Routin | 01/06/2015 | Nephrolithiasis | Results for this | | (NA, K, CL, TCO2, | e | 2:50 PM | | procedure are in the | | BUN, CR, GLU, CA) | | PDT | | results section. | + +--------+ + + + | URINE, MICROSCOPIC | Routin | 01/06/2015 | Nephrolithiasis | Results for this | | EXAM | e | 2:50 PM | | procedure are in the | | | | PDT | | results section. | + +--------+ + + + | CBC ONLY | Routin | 01/06/2015 | Nephrolithiasis | Results for this | | | e | 2:50 PM | | procedure are in the | | | | PDT | | results section. | + +--------+ + + + | CULTURE, URINE BACTI | Routin | 01/06/2015 | Nephrolithiasis | Results for this | | | e | 2:50 PM | | procedure are in the | | | | PDT | | results section. | + +--------+ + + + documented in this encounter Results URINE CULTURE WORKUP (01/06/2015 2:50 PM PDT) + + | Specimen | + + | Urine - Urine | + + + + + | Narrative | Performed At | + + + | Culture Report: >100,000 cfu/ml Skin rebekah | [facility] | | [place] | + + + + + + + + | Performing | Address | City/State/Zipcode | Phone Number | | Organization | | | | + + + + + | [facility] | [address] | [place] [address] | | | [place] | | | | + + + + + CBC (HEMOGRAM) ONLY (01/06/2015 2:50 PM PDT) + + + + + + | Component | Value | Ref Range | Performed | Pathologist | | | | | At | Signature | + + + + + + | WHITE CELL | 11.71 (H) | 4.40 - 11.00 | [facility] | | | COUNT | | K/cu mm | LABORATORY | | | | | | SERVICES, | | | | | | CORE | | + + + + + + | RED CELL | 4.01 | 4.00 - 5.20 | [facility] | | | COUNT | | M/cu mm | LABORATORY | | | | | | SERVICES, | | | | | | CORE | | + + + + + + | HEMOGLOBIN | 12.0 | 12.0 - 16.0 | [facility] | | | | | g/dL | LABORATORY | | | | | | SERVICES, | | | | | | CORE | | + + + + + + | HEMATOCRIT | 35.7 (L) | 36.0 - 46.0 % | [facility] | | | | | | LABORATORY | | | | | | SERVICES, | | | | | | CORE | | + + + + + + | MCV | 89.0 | 80.0 - 96.0 fL | [facility] | | | | | | LABORATORY | | | | | | SERVICES, | | | | | | CORE | | + + + + + + | MCHC | 33.6 | 33.0 - 35.5 | [facility] | | | | | g/dL | LABORATORY | | | | | | SERVICES, | | | | | | CORE | | + + + + + + | RDW SD | 42.0 | 35.1 - 46.3 fL | [facility] | | | | | | LABORATORY | | | | | | SERVICES, | | | | | | CORE | | + + + + + + | PLATELET | 138 (L) | 150 - 400 K/cu | [facility] | | | COUNT | | mm | LABORATORY | | | | | | SERVICES, | | | | | | CORE | | + + + + + + | [facility]PV | 12.4 (H) | 9.7 - 12.3 fL | [facility] [...] + | [facility] | [address] | [place] [address] | | | SERVICES, CORE | [address] | | | + + + + + CULTURE, URINE [facility] (01/06/2015 2:50 PM PDT) + + + + + + | Component | Value | Ref Range | Performed | Pathologist | | | | | At | Signature | + + + + + + | URINE | See Cx Results (A) | | [facility] | | | CULTURE | | | LABORATORY | | | [facility] | | | SERVICES, | | | | | | CORE | | + + + + + + + + | Specimen | + + | Urine - Urine | + + + + + + + | Performing | Address | City/State/Zipcode | Phone Number | | Organization | | | | + + + + + | [facility] | [address] | [place] [address] | | | [place], MAE | [address] | | | + [...] | | | LABORATORY | | | [place] | | | SERVICES, | | | [...] | + + + + + | [facility] | [address] | [place] [address] | | | SERVICES, CORE | [address] [...] | + +---------+ + + + | NON-SQUAMOU | Few (A) | None /hpf | [...] | + + + + + | [facility] | [address] | [place] [address] | | | FLETCHER, MAE | [address] | | | + + + + + documented in this encounter Visit Diagnoses + + | Diagnosis | + + | Nephrolithiasis Calculus of kidney | + + documented in this encounter"
--- OUTSIDE RECORDS SUMMARY | ~2020-03-17 | XMS | Encounter Summary ---
Demographics + + + | Address | [address] [place] [address] N | | | [place] [address] | + + + | Home Phone | | + + + | Preferred Language | Unknown | + + + | Marital Status | Unknown | + + + | Pentecostalism Affiliation | Unknown | + + + | Race | White | + + + | Ethnic Group | Not or | + + + Author + + + | Author | [facility] | | | and [place] | + + + | Organization | [facility] | | | [...] Team Providers + +------+ + | Care Socially Responsible Investment Adviser Name | Role | Phone | + +------+ + | Mireya Krishnamurthy | PCP | | + +------+ + Reason for Referral Diagnostic/Screening (Routine) +--------+--------+ + + + + | Status | Reason | Specialty | Diagnoses / | Referred By | Referred To | | | | | Procedures | Contact | Contact | +--------+--------+ + + + + | Closed | | Radiology | Diagnoses | Bro, | Cc Wgr Mri | | | | | Dizziness | Glenn Otoole, | [address] | | | | | Gait | MD [address] | | | | | disorder | [place], | [place] | | | | | Procedures | [place] | [address] | | | | | MRI Brain w | [place], [place] | Phone: | | | | | wo Contrast | [address] | [phone] | | | | | | Phone: | Fax: | | | | | | [phone] | [phone] | | | | | | Fax: | | | | | | | [phone] | | +--------+--------+ + + + + Reason for Visit Diagnostic/Screening (Routine) +--------+--------+ + + + + | Status | Reason | Specialty | Diagnoses / | Referred By | Referred To | | | | | Procedures | Contact | Contact | +--------+--------+ + + + + | Closed | | Radiology | Diagnoses | Bro, | Cc Wgr Mri | | | | | Dizziness | Glenn R, | [address] | | | | | Gait | MD [address] | [address] | | | | | disorder | [address], | [place], [place] | | | | | Procedures | [place] | [address] | | | | | MRI Brain w | [place], [place] | Phone: | | | | | wo Contrast | [address] | [phone] | | | | | | Phone: | Fax: | | | | | | [phone] | [phone] | | | | | | Fax: | | | | | | | [phone] | | +--------+--------+ + + + + Encounter Details +--------+ + + + + | Date | Type | Department | Care Team | Description | +--------+ + + + + | 11/18/ | Hospital | [facility] | Glenn Bro MD | Dizziness; | | 2020 | Encounter | Hospital MRI [address] | [address] | Gait disorder | | | | [place] | [place] | | | | | [place], [place] | [address] | | | | | [address] | | | | | | [phone] | | | +--------+ + + + [...] + + documented as of this encounter Medications at Time of Discharge + + + +---------+ + + | Medication | Sig | Dispensed | Refills | Start | End Date | | | | | | Date | | + + + +---------+ + + | acetaminophen | Take 500 mg by mouth | | 0 | | | | (TYLENOL) 500 mg | every 6 hours as | | | | | | tablet | needed for Pain. | | | | | + + + +---------+ + + | albuterol 90 | | | 0 | //20 | | | mcg/puff inhaler | | | | 20 | | + + + +---------+ + + | Ascorbic Acid | Take 100 mg by mouth | | 0 | | | | (VITAMIN C) 100 MG | Daily. | | | | | | tablet | | | | | | + + + +---------+ + + | diphenhydrAMINE | Take 25 mg by mouth | | 0 | | | | (BENADRYL ALLERGY) | every 6 hours as | | | | | | 25 mg tablet | needed for Itching. | | | | | + + + +---------+ + + | | | | 0 | 05/10/19 | | | HYDROcodone-acetamin | | | | 20 | | | ophen (NORCO) 5-325 | | | | | | | mg per tablet | | | | | | + + + +---------+ + + | hyoscyamine | | | 0 | 10/29/19 | | | (LEVSIN) 0.125 MG | | | | 20 | | | tablet | | | | | | + + + +---------+ + + | montelukast | | | 0 | 10/27/19 | | | (SINGULAIR) 10 mg | | | | 20 | | | tablet | | | | | | + + + +---------+ + + | omeprazole | | | 0 | 20 | | | (PRILOSEC) 20 mg | | | | 20 | | | capsule | | | | | | + + + +---------+ + + | ondansetron | | | 0 | 10/25/19 | | | (ZOFRAN ODT) 4 mg | | | | 20 | | | disintegrating | | | | | | | tablet | | | | | | + + + +---------+ + + | pregabalin | Take 1 capsule by | 90 | 4 | 11/05/19 | | | (LYRICA) 150 MG | mouth 3 times daily. | capsule | | 20 | | | capsule | | | | | | + + + +---------+ + + | SUMAtriptan | One tab at onset of | 20 | 5 | 11/11/19 | | | (IMITREX) 50 mg | migraine and can | tablet | | 20 | | | tablet | repeat in 45 mins up | | | | | | | to 2 per day | | | | | + + + +---------+ + + | DULoxetine | One tab at bedtime | 30 | 5 | 11/11/19 | | | (CYMBALTA) [address] | | capsule | | 20 | 0 | | capsule | | | | | | + + + +---------+ + + | orphenadrine | | | 0 | 10/23/19 | | | (NORFLEX) 100 mg ER | | | | 20 | 0 | | tablet | | | | | | + + + +---------+ + + documented as of this encounter Plan of Treatment Not on filedocumented as of this encounter Procedures + +--------+ + + + | Procedure Name | Priori | Date/Time | Associated Diagnosis | Comments | | | ty | | | | + +--------+ + + + | MRI BRAIN W WO | Routin | 2019 | Dizziness Gait | Results for this | | CONTRAST | e | 1:48 PM | disorder | procedure are in the | | | | PDT | | results section. | + +--------+ + + + documented in this encounter Results MRI Brain w wo Contrast (2019 1:48 PM PDT) + + | Specimen | + + | | + + + + + | Impressions | Performed At | + + + | No focal white matter abnormality is identified. Normal exam. | [facility] | | Dictated by: Raul Stevens | | + + + + + + | Narrative | Performed At | + + + | EXAMINATION: MRI BRAIN W WO CONTRAST HISTORY: Ataxia, stroke | [facility] | | suspected; Dizziness, persistent/recurrent, cardiac or vascular cause | | | suspected COMPARISON STUDY: None TECHNIQUE: Multiplanar | | | multi sequence MRI of the brain is performed without and with | | | contrast. 8 mL Gadavist was injected intravenously without post | | | contrast reaction. FINDINGS: Diffusion-weighted images show no | | | evidence of restricted diffusion. The brunson-white matter interface is | | | intact. No acute intracranial hemorrhage, mass lesion, or midline | | | shift. No abnormal enhancement. Basilar cisterns are patent. | | | Ventricles are symmetric. Cerebellum volume is normal. Minimal | | | cerebellar tonsillar ectopia. Sulci are age appropriate. Major flow | | | voids are present. No focal white matter lesion. Paranasal sinuses | | | and mastoid air cells are clear. No focal pituitary abnormality is | | | identified. Corpus callosum is unremarkable. Brainstem is | | | unremarkable. | | + + + + + | Procedure Note | + + | Amado, Rad Results In - 2019 2:13 PM PDT EXAMINATION:MRI BRAIN W WO | | CONTRASTHISTORY:Ataxia, stroke suspected; Dizziness, persistent/recurrent, cardiac or | | vascular cause suspectedCOMPARISON STUDY:NoneTECHNIQUE:Multiplanar multi sequence MRI of | | the brain is performed without and with contrast. 8 mL Gadavist was injected | | intravenously without post contrast reaction.FINDINGS:Diffusion-weighted images show no | | evidence of restricted diffusion.The brunson-white matter interface is intact.No acute | | intracranial hemorrhage, mass lesion, or midline shift.No abnormal enhancement.Basilar | | cisterns are patent.Ventricles are symmetric.Cerebellum volume is normal. Minimal | | cerebellar tonsillar ectopia.Sulci are age appropriate.Major flow voids are present.No | | focal white matter lesion.Paranasal sinuses and mastoid air cells are clear.No focal | | pituitary abnormality is identified.Corpus callosum is unremarkable.Brainstem is | | unremarkable.IMPRESSION: No focal white matter abnormality is identified. Normal | | exam.Dictated by: Raul Hairstonectronically Signed by: Raul Stevens on 2019 | | 2:10 PM | |The brunson-white matter interface is intact. | |No acute intracranial hemorrhage, mass lesion, or midline shift. | |No abnormal enhancement. | |Basilar cisterns are patent. | |Ventricles are symmetric. | |Cerebellum volume is normal. Minimal cerebellar tonsillar ectopia. | |Sulci are age appropriate. | |Major flow voids are present. | |No focal white matter lesion. | |Paranasal sinuses and mastoid air cells are clear. | |No focal pituitary abnormality is identified. | |Corpus callosum is unremarkable. | |Brainstem is unremarkable. | | | |IMPRESSION: | |No focal white matter abnormality is identified. Normal exam. | | | |Dictated by: Raul Stevens | | | | | + + + +---------+ + + | Performing | Address | City/State/Zipcode | Phone Number | | Organization | | | | + +---------+ + + | [facility] | | | | + +---------+ + + documented in this encounter Visit Diagnoses + + | Diagnosis | + + | Dizziness Dizziness and giddiness | + + | Gait disorder Abnormality of gait | + + documented in this encounter Administered Medications + +--------+ +-------+------+------+ | Medication Order | MAR | Action | Dose | Rate | Site | | | Action | Date | | | | + +--------+ +-------+------+------+ | gadobutrol (GADAVIST) injection | Given | 11/19/19 | 8 mLs | | | | 8 mL 8 mL, Intravenous, ONCE | | 20 1:48 | | | | | PRN, Other, Starting 11/19/19 | | PM PDT | | | | | at 1339, For 1 dose, MRI | | | | | | + +--------+ +-------+------+------+ +---+---+ | | | +---+---+ documented in this encounter"
--- OUTSIDE RECORDS SUMMARY | ~2020-03-17 | XMS | Encounter Summary ---
Demographics + + + | Address | [address] [place] [address] N | | | [place] [address] | + + + | Home Phone [...] Author + + + | Author | [facility] | | | and [place] | + + + | Organization | [facility] | | | [...] Team Providers + +------+ + | Care Manager Of Applications Development Name | Role | Phone | + +------+ + | Mireya Krishnamurthy | PCP | | + +------+ + Reason for Visit + +--------+ + | Reason | Onset | Comments | | | Date | | + +--------+ + | Medication Refill | 11/25/ | | | | 2019 | | + +--------+ + Encounter Details +--------+ + + + + | Date | Type | Department | Care Team | Description | +--------+ + + + + | 11/25/ | Telephone | [facility] | Glenn Bro MD | Medication Refill | | 2020 | | [facility] | [address] [place] | | | | | CLINIC [address] | [place] | | | | | [address] [place], | [address] | | | | | [place] [address] | | | | | | [phone] | | | +--------+ + + + [...] this encounter Miscellaneous Notes Telephone Encounter - Sumaya Ronquillo CC CMA - 11/27/2019 8:30 AM PDTCalled and left Bev Chinchilla for pt informing her to return call. Rx for Lyrica was sent on 11/05/19 for 150 mg TID. Ta lked with Provider and pt will need to talk to her pain management provider for Rx of Diazep am, unfortunatley we are not willing to start this Rx for pt. NERY Mace CMA elephone Carmen Schwarz - 11/26/2019 3:44 PM PDTCan you please send a new prescription for her Lyrica to the pharmacy? They do not have the new one since you have increased her dose. Also, can she please get her diazepam back for her muscle spasms. Nobody else will prescri be this for her and she states this is the only thing that works. documented in this encounter Plan of Treatment Not on filedocumented as of this encounter Visit Diagnoses Not on filedocumented in this encounter"
--- OUTSIDE RECORDS SUMMARY | ~2020-03-17 | XMS | Encounter Summary ---
Demographics + + + | Address | [address] [place] [address] N | | | [place] [address] | + + + | Home Phone | | + + + | Preferred Language | Unknown | + + + | Marital Status | Unknown | + + + | Protestant Affiliation | Unknown | + + + [...] Team Providers + +------+ + | Care Maintenance Truck Driver Name | Role | Phone | + +------+ + | Mireya Krishnamurthy | PCP | | + +------+ + Reason for Visit + +--------+ + | Reason | Onset | Comments | | | Date | | + +--------+ + | Phone Attempt | 11/09/ | | | | 2020 | | + +--------+ + Encounter Details +--------+ + + + + | Date | Type | Department | Care Team | Description | +--------+ + + + + | 11/09/ | Telephone | [facility] | Glenn Bro MD | Phone Attempt | | 2020 | | [facility] | [address] [place] [place] | | | | | CLINIC [address] | [place] | | | | | [address] [place], | [address] | | | | | [place] [address] | | | | | | [phone] | | | +--------+ + + + [...] this encounter Miscellaneous Notes Telephone Encounter - Sally Magana RN - 11/20/2019 1:25 PM PDTSpoke with Azucena and advised her of results. Verbalized understanding and no further questions.Electronically sig marla by Sally Magana RN at 11/20/2019 1:26 PM PDTTelephone Encounter - Glenn Bro MD - 11/10/2019 4:14 PM PDTcalled and left a message to call us back for blood test resul ts, normal for neuroathic work up, 2 nd attempt elephone Encounter - Sally Magana RN - 11/10/2019 2:38 PM PDTPt returning your call elephone Encounter - Mario Christensen - 11/10/2019 2:[address] Is returning [address] Oneal phone call document ed in this encounter Plan of Treatment Not on filedocumented as of this encounter Visit Diagnoses Not on filedocumented in this encounter"
--- OUTSIDE RECORDS SUMMARY | ~2020-03-17 | XMS | Encounter Summary ---
Demographics + + + | Address | [address] | | | [place] [address] | + + + | Home Phone | | + + + | Preferred Language | Unknown | + + + | Marital Status | Single | + + + | Uatsdin Affiliation | NON | + + + | Race | White | + + + | Ethnic Group | Not or | + + + Author + + + | Author | [facility] | + + + | Organization | [facility] | + + + | Address | Unknown | + + + | Phone | Unavailable | + + + Support + + +---------+ + | Name | Relationship | Address | Phone | + + +---------+ + | Asim Garcia | ECON | Unknown | | + + +---------+ + Care Team Providers + +------+ + | Care Dietary Internship Name | Role | Phone | + +------+ + | Arturo Tony FOREIGN LEGAL CONSULTANT | PCP | | + +------+ + Encounter Details +--------+ + + + + | Date | Type | Department | Care Team | Description | +--------+ + + + + | 11/25/ | Document-Sc | UNKNOWN DEPARTMENT | Unknown . | | | 2015 | anned | [address] | | | | | | [address] | | | | | | [place] | | | | | | [address] | | | +--------+ + + + [...] + + + | RADIOLOGY | | 11/25/2014 | | Results for this | | | | 12:00 AM | | procedure are in the | | | | PDT | | results section. | + +--------+ + + + documented in this encounter Results RADIOLOGY (11/25/2014 12:00 AM PDT) + + + | Narrative | Performed At | + + + | | | + + + documented in this encounter Visit Diagnoses Not on filedocumented in this encounter"
--- OUTSIDE RECORDS SUMMARY | ~2020-03-17 | XMS | Encounter Summary ---
Demographics + + + | Address | [address] | | | [place] [address] | + + + | Home Phone | | + + + | Preferred Language | Unknown | + + + | Marital Status | Single | + + + | Christian Affiliation | NON | + + + | Race | White | + + + | Ethnic Group | Not or | + + + Author + + + | Author | [facility] | + + + | Organization | [facility] | + + + | Address | Unknown | + + + | Phone | Unavailable | + + + Support + + +---------+ + | Name | Relationship | Address | Phone | + + +---------+ + | Asim Garcia | ECON | Unknown | | + + +---------+ + Care Team Providers + +------+ + | Care Gluer And Slicer Hand Name | Role | Phone | + +------+ + | Arturo Tony EXPERIMENTAL PHYSICIST | PCP | | + +------+ + Reason for Referral PROC - Outpatient Surgery (Routine) +--------+--------+ + + + + | Status | Reason | Specialty | Diagnoses / | Referred By | Referred To | | | | | Procedures | Contact | Contact | +--------+--------+ + + + + | Closed | | Urology | Diagnoses | Duty, | Duty, | | | | | Rt flank | Brian Lo MD | MD [address] | | | | | pain | [address] | | | | | Procedures | Ave | [place], [place] | | | | | REQUEST TO | [place] | [address] | | | | | SURGERY | [address] | Phone: | | | | | EMBEDDED ENGINEER | Phone: | [phone] | | | | | [place] | [phone] | Fax: | | | | | CYSTO/URETER | Fax: | [phone] | | | | | O/PYELOSC, | [phone] | | | | | | W/LITHOTRIPS | | | | | | | Y INCL STENT | | | | | | | INSERT | | | | | | | Ureteroscopy | | | | | | | with laser | | | | | | | lithotripsy | | | +--------+--------+ + + + + Encounter Details +--------+---------+ + + + | Date | Type | Department | Care Team | Description | +--------+---------+ + + + | 12/24/ | Office | Urology at [facility] | Elma, Brian Lo MD | Rt flank pain | | 2014 | Visit | [address] | [address] | (Primary Dx) | | | | [place] [facility] | [facility] [place] | | | | | and Healing, | [address] | | | | | | [phone] | | | | | Floor [place], [place] | | | | | | [address] | | | | | | [phone] | | | +--------+---------+ + + + Social History [...] documented as of this encounter Progress Notes Duty, Brian Lo MD - 12/22/2014 11:52 AM PDTTELEPHONE ENCOUNTER Identification Azucena Araiza who is a 34 year old woman 30 with a history of nephrolithiasis who developed right flank pain in September. No precipitating event. No flank pain during her two p rior pregnancies. Her pain is a 5 out of 10 at baseline but increases to 10 out of 10 every two to three weeks prompting multiple ER visits. No known palliating or provoking factors (e g., not positional). Multiple abdominal ultrasounds have shown mild right hydronephrosis of unclear etiology (no stones visualized). She was taken to the operating room on 11/04/14 by a local urologist who placed a right ureteral stent. A postop renal US showed continued modera te right hydronephrosis but a ureteral jet was present. Her flank pain was worse with the st ent in place. It was removed 24 hour later. Nephrostomy tube placement was recommended. She has a remote history of stone disease (2002). Never required surgery. She denies a history of chronic pain. She does not take pain medications at baseline. Telephone Discussion Azucena reports continued flank pain. Her primary goal is to get off pain medications out of c oncern for her baby. The following options were discussed. - Continued observation with pain medications as needed (as noted above she is not interest ed in this option due to her desire to avoid pain meds) - Right ureteroscopy with lithotripsy if a stone is seen - Pros: if stone is seen may solve problem alllowing her to get off pain meds - Cons: requires anesthetic placing her and the baby at risk. May require stent placement, which she tolerated poorly. * If no stone is seen will move forward with nephrostomy tube placement Plan - Phone [facility] - CBC, BMP, urine micro and culture locally - Schedule for right ureteroscopic lithotripsy (once date has been scheduled inform perinat ology for monitoring) I spent a total of 15 minutes with the patient over the phone counseling the patient. BRIAN HAYDEN MD [employer] Department of Urology [facility] documented in this enco unter Plan of Treatment Not on filedocumented as of this encounter Visit Diagnoses + + | Diagnosis | + + | Rt flank pain - Primary Abdominal pain, unspecified site | + + documented in this encounter"
--- OUTSIDE RECORDS SUMMARY | ~2020-03-17 | XMS | Encounter Summary ---
Demographics + + + | Address | [address] [place] [address] N | | | [place] [address] | + + + | Home Phone | | + + + | Preferred Language | Unknown | + + + | Marital Status | Unknown | + + + | Adventist Affiliation | Unknown | + + + | Race | White | + + + | Ethnic Group | Not or | + + + Author + + + | Author | [facility] | | | and [place] | + + + | Organization | [facility] | | | and [...] Team Providers + +------+ + | Care Fly Rail Operator Name | Role | Phone | + +------+ + | Mireya Krishnamurthy | PCP | | + +------+ + Encounter Details +--------+ + + + + | Date | Type | Department | Care Team | Description | +--------+ + + + + | 11/10/ | Orders Only | [facility] | Glenn Bro MD | | | 2020 | | HOSPITAL [facility]OLOG[facility] | [address] | | | | | CLINIC [address] | [place] | | | | | [address] [place], | [address] | | | | | [place] [address] | | | | | | [phone] | | | +--------+ + + + [...]
--- OUTSIDE RECORDS SUMMARY | ~2020-03-17 | XMS | Clinical Summary ---
Demographics + + + | Address | [address] | | | [place] [address] | + + + | Home Phone | | + + + | Preferred Language | Unknown | + + + | Marital Status | Single | + + + | Evangelical Affiliation | NON | + + + | Race | White | + + + | Ethnic Group | Not or | + + + Author + + + | Author | [facility] | + + + | Organization | [facility] | + + + | Address | Unknown | + + + | Phone | Unavailable | + + + Support + + +---------+ + | Name | Relationship | Address | Phone | + + +---------+ + | Asim Garcia | ECON | Unknown | | + + +---------+ + Care Team Providers + +------+ + | Care Fish Processing Supervisor Name | Role | Phone | + +------+ + | Arturo Tony VEGETABLE HARVEST MACHINE OPERATOR | PCP | | + +------+ + Source Comments [facility] is fully live on both [facility] and [facility] [place] Allergies + + + + + + | Active Allergy | Reactions | Severity | Noted | Comments | | | | | Date | | + + + + + + | Adhesive Tape | Contact Dermatitis | | 12/30/19 | | | | | | 15 | | + + + + + + | Codeine | Hives | | 12/30/19 | | | | | | 15 | | + + + + + + | Hydrocodone | Hives | | 12/30/19 | | | | | | 15 | | + + + + + + | Morphine Sulfate | Hives | | 12/30/19 | | | | | | 15 | | + + + + + + Medications + + + +---------+------+------+-------+ | Medication | Sig | Dispensed | Refills | Star | End | Statu | | | | | | t | Date | s | | | | | | Date | | | + + + +---------+------+------+-------+ | VIT/IRON | Take by mouth once | | 0 | | | Activ | | FUMARATE/FA | daily in the | | | | | e | | ( ORAL) | morning. | | | | | | + + + +---------+------+------+-------+ | FLUoxetine | Take 20 mg by mouth | | 0 | | | Activ | | (PROZAC) 20 mg oral | two times daily. | | | | | e | | capsule | | | | | | | + + + +---------+------+------+-------+ | ondansetron | Take 4 mg by mouth | | 0 | | | Activ | | (ZOFRAN, | every twelve hours | | | | | e | | HYDROCHLORIDE,) 4 mg | as needed. | | | | | | | oral tablet | | | | | | | + + + +---------+------+------+-------+ | | Take 1 to 2 tablets | 30 | 0 | 07/1 | | Activ | | oxyCODONE-acetaminop | by mouth every six | tablet | | 5/20 | | e | | hen 5-325 mg oral | hours as needed. | | | 15 | | | | tablet | | | | | | | + + + +---------+------+------+-------+ | senna-docusate | Take 1 tablet by | 40 | 0 | 07/1 | | Activ | | 8.6-50 mg oral | mouth twice daily as | tablet | | 5/20 | | e | | tablet | needed. | | | 15 | | | + + + +---------+------+------+-------+ | ondansetron 4 mg | Take 1 tablet by | 30 | 0 | 07/1 | | Activ | | oral tablet | mouth every eight | tablet | | 5/20 | | e | | | hours as needed for | | | 15 | | | | | nausea/vomiting. | | | | | | + + + +---------+------+------+-------+ Active Problems Not on file Social History + + + +--------+------+ | [...] on file | | + + + Last Filed Vital [...] + + Plan of Treatment + + +-------+ + | Health Maintenance | Due Date | Last | Comments | | | | Done | | + + +-------+ + | Pneumococcal | | | | | vaccination (1 of 1 | 8 | | | | - PPSV23) | | | | + + +-------+ + | Influenza (Flu) | | | | | vaccination (#1) | 0 | | | + + +-------+ + Results Not on filefrom Last 3 Months Insurance + +--------+ +--------+-------+---------+--------+ | Payer | Benefi | Subscriber | Effect | Phone | Address | Type | | | t Plan | ID | ravinder | | | | | | / | | Dates | | | | | | Group | | | | | | + +--------+ +--------+-------+---------+--------+ | PAN PUSHER MEDICAID | PAN PUSHER | [id number] | | | | Medica | | | EAST[place] | | 015-Pr | | | id | | | [place] | | esent | | | | + +--------+ +--------+-------+---------+--------+ + +--------+ +--------+ + + | Guarantor Name | Accoun | Relation to | Date | Phone | Billing Address | | | t Type | Patient | of | | | | | | | | | | + +--------+ +--------+ + + | Azucena Araiza | Person | Self [birth year] | [address] | | | [place] | | 1981 | [phone] | [place] | | | amina | | | [address] (Home) | [phone] | + +--------+ +--------+ + + Advance Directives + + + + + | Code Status | Date | Date | Comments | | | Activated | Inactivated | | + + + + + | Full Code | 01/11/2015 | 01/13/2015 | | | | 4:38 PM | 4:54 PM | | + + + + + + + + +---+ | | | | | + + + +---+ | Full Code | 01/11/2015 | 01/11/2015 | | | | 6:04 AM | 4:38 PM | | + + + +---+
--- OUTSIDE RECORDS SUMMARY | ~2020-03-17 | XMS | Encounter Summary ---
Demographics + + + | Address | [address] | | | [place] [address] | + + + | Home Phone | | + + + | Preferred Language | Unknown | + + + | Marital Status | Single | + + + | Synagogue Affiliation | NON | + + + [...] Team Providers + +------+ + | Care Slider Assembler Name | Role | Phone | + +------+ + | Arturo Tony WRAPPER HAND | PCP | | + +------+ + [...] Description | +--------+---------+ + + + | 01/11/ | Surgery | [id number] | Brittany Wills MD | DIAGNOSTIC | | 2014 | | [facility] | [address] | URETEROSCOPY | | | | Rd [facility] | [place], [place] | | | | | Hospital Admitting | [address] | | | | | Desk Located on the | [phone] | | | | | 9th floor | | | | | | [place], [place] | | | | | | [address] | | | +--------+---------+ + + + Social History + + [...] 34w2d by 24w ultrasound presents for ri t ureteroscopy and possible laser lithotripsy on 01/11/2015. [...] can cause constipation, so you may take micp-vsu-focbfrw stool softeners (Senok ot-S, Miralax, Colace) following [...] Wills MD. Jordin Mohamud, R1 Urology Pager [phone] Vernon Beauchamp - 12:32 PM Ambrocio Araiza [...] 120s mod ifeanyi, accels present, no decels Devol: quiet - Reassuring FHT. No additional issues from an OB standpoint. Please page with any question s. SHIVANI Umanzor [id number] signed by Vernon Shaikh at 01/12/2015 1:57 [...] Wills MD. Jordin Mohamud, R1 Urology Pager [phone] uVernon - 6:56 AM PDTOB BRIEF PRE-OP NOTE Admission Date/Time: 01/11/2015 0533 Service: OBGYN Faculty: Evelyn Outpatient: [facility] HPI: Azucena Araiza is a 34 y.o. [...] WIll call to obtain OHP form from [facility] - Plan for continunous monitoring through procedure - Will send T&S this AM. Last Hct 01/06 35.7 - OB is available via pager for assistance SHIVANI Mathew [id number] signed by Vernon Shaikh at 01/11/2015 9:38 AM PDTdocumented in this encounter H&P Notes Brittany Wills MD - 01/11/2015 8:17 AM PDTI have examined the patient and reviewed the His tory and Physical and have confirmed that it is accurate and current. BRITTANY WILLS MD Avionics Integration Engineer Department of Urology [facility] documented in this enco unter Procedure Notes Morris Peñaloza MD - 01/11/2015 10:07 AM PDTAssociated Order(s): PROCEDURE NOTEDate of Pr ocedure: 01/11/2015 Attending Surgeon: Brittany Wills MD Otr Truck Driver(s): MD Salinas DE LA O MD Preoperative [...] was given as the antibiotic. A Sanders 21-Belarusian rigid cystoscope was then pass ed per [...] one to two weeks. BRITTANY WILLS MD Avionics Integration Engineer Department of Urology [facility] documented in this encounter Miscellaneous Notes Plan [...] notes for their discharge recommendations. Please page bilingual patient support caseworker if any CM arranged service needs arise. Rachael Napier [address] [facility] [place] [address] Pager # [phone] valuation - Xiang Berg RN - 01/13/2015 [...] was discharged via volunteer services to [facility] where she went to pick remover her prescriptions. She was then transported home [...] also been helpful Psych/social issues: lives in [place], has 2 daughters (2 and 13 ). [...] Psych/social issues: Due to give 02/21. High-risk LINING STUFFER following baby #[id number]. Lives in [place], [place]. Has two daughters (2 and 13 yo's) who are staying with family in [place] . Walks outside to smoke. Last patient [...] RN, Naomie glass - 01/11/2015 4:15 PM PDTMeets Phase I Discharge Criteria (Stable For Transfer): Yes Major deviations/events or pertinent findings of emily-operative stay: very painful. No inte rvention done [...] Additional pain medication information: Functional Epidural: No RESTAURANT ASSISTANT: No Respiratory: RR: 18, O2 Sat: 97 [...] void: 1530 Contact Name: Trisha-aunhetal Contact Number: [phone] Family contacted: Yes Comment:at bedside at [address] Belongings:all home with aunt andoff - Valarie Morales RN - 01/11/2015 1:35 PM PDTNursing Handoff Report Primary focus of stay: 34 yo F, s/p ureteroscopy 01/11/15. No stones found, no nephrostomy t ube placed per Duty & OB 2/2 higher risk for [...] Very painful, increased from baseline 10 to 9/10 post- op. PO oxycodone q4 hours and Tylenol PRN. Takes Percocet at home. Psych/social issues: Due to give 02/21. Has high-risk LINING STUFFER. L&D RN following baby #[id number]. Lives in [place], [place]. Has two daughters (2 and 13 yo's) who are staying with family in [facility] and is with a girl. Pt wants [...] can feel the baby moving. Moderately stable. Rhiannon Mcrae RN - 01/11/2015 12:44 PM PDT Meets Phase I Discharge Criteria (Stable For Transfer): Yes Major deviations/events or pertinent findings of emily-operative stay: VS stable throughout SPACU stay -Dr Duty visited bedside multiple times to update and coordinate with patient regarding car e/plan and spoke with her high school learning support teacher Dr in [place]-came to the consensus that nephrostom y tube increased risk of infection to fetus and will not do the surgery at this time, possib ly induce a few weeks early since is likely cause of compression and pain -baby being monitored by L&D -2PIV-SL -Pt lives in [place], staying with aunt (contact) in [place] Anticipated post-op needs/devices/follow up: global president contacted for additional medications for pain and nausea as well as IVF Pain management Safety Anxiety management monitoring-L&D provider Lizabeth Alvarez pgr [phone], pls page with updates if additiona l [...] of Pain medication addiction. Functional Epidural: No RESTAURANT ASSISTANT: No Respiratory: RR: 18, O2 Sat: 97 [...] void @1130 Contact Name: Nancy Contact Number: [phone] Family contacted: Yes Comment:updated via phone and [...] + + + + + | [facility] | [address] | [place] [address] | | | FLETCHER, MAE | [address] [...] [facility] | [address] | [place] [address] | | | SERVICES, CORE | [address] | | | + + + + + MAGNESIUM, PLASMA (01/13/2015 4:53 AM PDT) + +---------+ + + + | Component | Value | Ref Range | Performed | Pathologist | | | | | At | Signature | + +---------+ + + + | MAGNESIUM,P | 1.7 (L) | 1.8 - 2.5 mg/dL | [facility] | | | LASMA | | | [...] [facility] | [address] | [place] [address] | | | SERVICES, CORE | [address] [...] | | | LABORATORY | | | MAURITANIAN | | | SERVICES, | | | [...] the MDRD equation recommended by the | [facility] | | National Kidney Disease Education [...] | + + + + + | [facility] | [address] | [place] [address] | | | SERVICES, CORE | [address] [...] + accelerations, no | | | decelerations Devol: no contractions in 20 minutes Indication | [...] one day | | | pending discharge. [facility]EN [facility] | | + + + CBC (HEMOGRAM) [...] [facility] | [address] | [place] [address] | | | SERVICES, CORE | [address] [...] | + + + + + | [facility] | [address] | [place] [address] | | | SERVICES, CORE | [address] [...] | + + + + + | [facility] | [address] | [place] [address] | | | SERVICES, CORE | [address] [...] | | | LABORATORY | | | MAURITANIAN | | | SERVICES, | | | [...] [facility] | [address] | [place] [address] | | | SERVICES, CORE | [address] [...] | + + + + + | [facility] | [address] | [place] [address] | | | SERVICES, | [address] [...] [facility] | [address] | [place] [address] | | | SERVICES, | [address] [...] | + + + + + | [facility] | [address] | [place] [address] | | | SERVICES, | [address] | | | | TRANSFUSION MEDICINE | | | | + + + + + CARDIOLOGY (01/11/2015 12:00 AM PDT) + + + | Narrative | Performed At | + + + | | | + + + documented in this encounter Visit Diagnoses + + | Diagnosis | + + | Abdominal pain, other specified site | + + documented in this encounter Administered Medications + +---------+ [...] | | | | ONCE, 1 dose, Sun01/11/15 at 1030 | | AM PDT | [...] | | | | | Sun01/11/15 at 1516, Until Tue | | | | | | | 01/12/15 at 1501, mild pain | | | | | | + +---------+ + +---+---+ + +---+ | | | + +---+ | acetaminophen (OFIRMEV) IV 1 | | | dose, Starting 7/13/15 at | | | 1015, Until Sun01/11/15 [...] AM PDT | | | | | Sun01/11/15 at 1638, Until Tue | | | [...] 7:11 | | | | | dose, Sun01/11/15 at 0715 | | AM PDT | [...] | NEEDED, Starting Sun01/12/15 at | | | | | [...] tablet 1 dose, | | | Starting Sun01/11/15 at 1139, | | | Until Sun01/11/15 [...] | | | | | 0739, Until Sun01/11/15 at 0745 | | | | | | + +-------+ +-------+---+---+ +---+---+ | | | +---+---+ documented in this encounter
--- OUTSIDE RECORDS SUMMARY | ~2020-03-17 | XMS | Encounter Summary ---
Demographics + + + | Address | [address] [place] [address] N | | | [place] [address] | + + + | Home Phone | | + + + | Preferred Language | Unknown | + + + | Marital Status | Unknown | + + + | Alevism Affiliation | Unknown | + + + | Race | White | + + + | Ethnic Group | Not or | + + + Author + + + | Author | [facility] | | | and [place] | + + + | Organization | [facility] | | [...] Team Providers + +------+ + | Care Meteorological Technician Name | Role | Phone | + +------+ + | Mireya Krishnamurthy | PCP | | + +------+ + Reason for Visit + +--------+ + | Reason | Onset | Comments | | | Date | | + +--------+ + | Referral | 11/18/ | | | | 2020 | | + +--------+ + Encounter Details +--------+ + + + + | Date | Type | Department | Care Team | Description | +--------+ + + + + | 11/18/ | Telephone | [facility] | Glenn Bro MD | Referral | | 2020 | | HOSPITAL [facility] | [address] | | | | | CLINIC [address] | [place] | | | | | [address] [place], | [address] | | | | | [place] [address] | | | | | | [phone] | | | +--------+ + + + [...] this encounter Miscellaneous Notes Telephone Encounter - Nell Carmen Landers - 2019 2:04 PM PDTThe patient called back and I passed along the information to her. Electronically signed by Carmen Camejo at 0 2019 2:04 PM PDTTelephone Encounter - Dheeraj Meyer, NERY JIMENEZ - 2019 12:05 PM PDTPt would like a referral to [facility]. Called [facility], and asked if she would n eed a referral. They stated that their wire frame lampshade maker is not licensed through [employer] and would not accept pt's insurance. This is the only wire frame lampshade maker in [facility] at the moment. Pt can stil l schedule but would have to pay out of pocket. If she decides to pay OOP, she does not need a referral and can call [facility] to schedule herself. Attempted to call pt. No answer. Left voicemail to call back. Dheeraj Meyer CMA elephone Nabila Marte - 2019 11:09 AM PDTPt is calling to request a referral to: [facility], they do Acupuncture. Per her conversation with Dr Bro, she would like to try this to help with her back pain, ge neral pain. Please call pt to discuss if needed. [phone] signed by Nabila Crowder at 2019 11:11 AM PDTdocumented in this encounter Plan of Treatment Not on filedocumented as of this encounter Visit Diagnoses Not on filedocumented in this encounter"
--- OUTSIDE RECORDS SUMMARY | ~2020-03-17 | XMS | Encounter Summary ---
Demographics + + + | Address | [address] | | | [place] [address] | + + + | Home Phone | | + + + | Preferred Language | Unknown | + + + | Marital Status | Single | + + + | Restoration Affiliation | NON | + + + [...] Team Providers + +------+ + | Care Dulite Machine Bluer Name | Role | Phone | + +------+ + | Arturo Tony [address] MAGISTRATE | PCP | | + +------+ + [...] + + + + | 01/11/ | Anesthesia | 6A Intra Op [id number] | Magnolia Prince, | | | 2015 | Event | [address] | [address] | | | | | [facility] | [facility] | | | | | Hospital Admitting | [place], [place] | | | | | Desk Located on the | [id number] | | | | | 9th floor | [phone] | | | | | [place], [place] | | | | | | [address] | | | +--------+ + + + + Anesthesia Record + + + + + | Procedure Name | Responsible | Anesthesia Start | Anesthesia Stop Time | | | Anesthesiologist | Time | | + + + + + | DIAGNOSTIC | Magnolia Prince MD | 01/11/15 0826 | 01/11/15 1014 | | URETEROSCOPY (Right | | | | | Other) | | | | + + + + + +----+---+ + + | Da | T | Event | Comment | | te | i | | | | | m | | | | | e | | | +----+---+ + + | 07 | 0 | | | | /1 | 8 | | | | 3/ | 1 | | | | 20 | 0 | | | | 15 | | | | +----+---+ + + | | 0 | Pt. Check | Prior to anesthesia start, pt. Identified, examined, chart | | | 8 | | reviewed, PARQ held, anesthetic plan made or approved by | | | 1 | | attending anesthesiologist. NPO status confirmed as appropriate | | | 0 | | for procedure Preoperative evaluation: unchanged | +----+---+ + + | | 0 | Eq Check | Anesthesia machine checked Equipment verified | | | 8 | | | | | 1 | | | | | 3 | | | +----+---+ + + | | 0 | An Start | | | | 8 | | | | | 2 | | | | | 6 | | | +----+---+ + + | | 0 | Eq Check | Anesthesia machine checked Equipment verified | | | 8 | | | | | 3 | | | | | 3 | | | +----+---+ + + | | 0 | An Start | | | | 8 | Data | | | | 3 | | | | | 3 | | | +----+---+ + + | | 0 | Vitals | Monitors applied Vital signs checked Patient ready for anesthesia | | | 8 | Checked | | | | 3 | | | | | 8 | | | +----+---+ + + | | 0 | Quick Note | Left uterine displacement | | | 8 | | | | | 3 | | | | | 9 | | | +----+---+ + + | | 0 | Std. Airway | | | | 8 | Mgt. | | | | 4 | | | | | 8 | | | +----+---+ + + | | 0 | Ready | | | | 8 | | | | | 5 | | | | | 0 | | | +----+---+ + + | | 0 | Abx | | | | 9 | Administere | | | | 1 | d | | | | 5 | | | +----+---+ + + | | 0 | Incision | | | | 9 | | | | | 1 | | | | | 7 | | | +----+---+ + + | | 0 | Surgery end | | | | 9 | | | | | 5 | | | | | 2 | | | +----+---+ + + | | 1 | An Extubate | Neuromuscular function Intact. Pharynx suctioned. Patient obeys | | | 0 | | commands. Adequate pulmonary mechanics. | | | 0 | | | | | 2 | | | +----+---+ + + | | 1 | an stop | | | | 0 | data | | | | 0 | | | | | 3 | | | +----+---+ + + | | 1 | Quick Note | monitoring throughout case. FHR 130s will continue to | | | 0 | | monitor in the PACU. | | | 0 | | | | | 3 | | | +----+---+ + + | | 1 | Anesthesia | | | | 0 | End | | | | 1 | | | | | 4 | | | +----+---+ + + +------+ | Meds | +------+ + + + | Name | Total | + + + | fentaNYL | 100 mcg | + + + | lidocaine 2% | 60 mg | + + + | propofol | 200 mg | + + + | succinylcholine | 120 mg | + + + | cefTRIAXone | 1 g | + + + | ePHEDrine | 15 mg | + + + | PHENYLEPHrine | 100 mcg | + + + | LR | 1,000 mL | + + + + + | Name | + + | Insp Sevo | + + | Et Sevo | + + | EtN2O % | + + | Insp N2O % | + + | O2 Flow Rate (Total Liters) | + + + + | No blood administrations on file. | + + +--------+ + + + | Type | Details | Placement | Removal | +--------+ + + + | Periph | 01/11/15; 0635; Rhiannon Beth RN; | 01/11/15 0635 by | 01/12/15 1601 by Valarie | | eral | Left; Hand; 20 g; None (pt | Rhiannon Beth RN | Saravanan Morales RN | | IV | declined); No; Positive; | | | | | 01/12/15; 1601; Per protocol | | | | | (bothering Pt and she has | | | | | another) | | | +--------+ + + + | Periph | 01/11/15; 0851; Right; Distal; | 01/11/1551 by | 01/13/15829 by | | eral | Forearm; 18 g; Positive; | Beata Chu, | Yazmin Berg RN | | IV | 01/13/15; 0830; Discharge | NEGATIVE TURNER | | +--------+ + + + documented in this encounter Social History + + + +--------+------+ | [...] + + documented as of this encounter OR Notes Anesthesia Preprocedure Evaluation - Magnolia Prince MD - 01/11/2015 4:42 PM PDTFormatt ing of this note might be different from the original. Azucena Araiza [id number] Allergies Allergen Reactions Adhesive Tape Contact Dermatitis Codeine Hives Hydrocodone Hives Morphine Sulfate Hives NPO:NPO Status: 01/10 Last Vitals: Temp: 36.5 C (97.7 F) Pulse: 84 Resp: 18 BP: 105/65 mmHg SpO2: 97 % O2 Flow Rate: 8 LPM O2 Delivery Device: None (room air) Preg Status/LMP: There is no problem list on file for this patient. Past Surgical History Procedure Laterality Date Insertion, ureteral stent Right 11/04/2014 Hand surgery Right Cholecystectomy Hernia repair X 2 Open removal of solid matter from pericardial cavity 2009 Upper g.i. endoscopy Colonoscopy D&c (dilatation and curettage) Current Medication List Name Sig Last Dose DOCUSATE SODIUM 100 MG CAPSULE Take 100 mg by mouth two times daily. Within last 30 days FLUOXETINE 20 MG CAPSULE Take 20 mg by mouth two times daily. 01/10/2015 ONDANSETRON HCL 4 MG TABLET Take 4 mg by mouth every twelve hours as needed. 01/10/2015 OXYCODONE-ACETAMINOPHEN 5 MG-325 MG TABLET Take 1-2 tablets by mouth as needed. ORAL Take by mouth once daily in the morning. 01/10/2015 No results found for this basename: rate, atrialrate, pr, qrs, qt, qtc, paxis, raxis, taxis , ekgdx Preoperative Adult Anesthesia Plan Last edited 01/11/15 6832 by Magnolia Prince MD ROS Pertinent HPI: 34 weeks lady presenting for ureteroscopy and possible lithotripsy. Pulmonary: Current Every Day Smoker; 0.25 packs/day for 16 years; Types: Cigarettes Asthma associated with activity in high elevation. shortness of breath with exertion Pt. Has asthma Classification: exercise-induced asthma Frequency: very infrequent ER Visits: none Hospital Visits: Cardiovascular: Hx of pericardial cyst - st/p resection 2009. Physical activity limited by being in third trimer. Functional Capacity: Moderate GI/Hepatic: Nausea. Acid reflex since being 7 years old now exacerbated by being . GERD Control: Well controlled : Nephrolithiasis, s/p a right ureteral stent, LMP: 05/2015, 30 weeks due date 02/21/2015. St/p ureteral stent placement in October 2014, which made the pain worse so the stent was removed. 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 Heme/Onc: Within Defined Limits except as noted below Skin: Within Defined Limits except as noted below Physical Exam General: Patients general appearance: Healthy and Alert Head & Neck/Airway: Neck ROM: full TM Distance:> 6cm Dentition: missing teeth and chipped teeth Dental risk discussed with/pt : Yes Mallampati: I Mouth Opening: > = 3 cm C-Spine: normal Neck Anatomy: Normal Jaw Protrusion: Normal, lower incisors can protrude past upper incisors Lung Exam: breath sounds normal Cardiac: Rhythm: regular Rate: normal Abdominal: General Findings: Deferred Musculoskeletal: Findings: tone normal Neuro/Psych: alert Integument: Color: pink Turgor: turgor normal Implants: 34 y.o. F scheduled for 01/11/15 URETEROSCOPY WITH/WITHOUT LASER LITHOTRIPSY (Right ) by Brian Wills MD / [facility] Past medical hx is significant for 31 with a history of nephrolithiasis who developed right flank pain in September, Multiple abdominal ultrasounds have shown mild right hydronephrosis of unclear etiology (no stones visualized). She was taken to the operating room on 11/04/14 by a local urologist who placed a right ureteral stent. A postop renal US showed continued moderate right hydronephrosis but a ureteral jet was present. Her flank pain was worse with the stent in place. It was removed 24 hour later. Nephrostomy tube placement was recommended. Weight__219___lbs. Height_5___ Ft._6.5___Inches BMI __34.9___ ED H&P and labs visit by Dr. Theodora Jennings Dated 12/02/2014 received and sent to be scanned into [facility] 12/29/2014 ADMIN ASSISTANT Visit notes received from PCP, Dr. Clementine Abdalla MD dated 12/03/2014, sent for scanning. See Media tab, under heading: File attached to: Scanned Document Description: "Outside H and P", Enc. Date:12/29/2014 Patient to be examined DOS prior to procedure for current H&P Patient interview complete and pertinent updates documented under patient history. Patient received pre-op instructions per AVS and verbalized good understanding. Phone appointment completed as scheduled. Transportation:PHILOMENA Dailey [id number] Anesthesia Plan Comments ASA ASA 2 NPO Status NPO Status: NPO by protocol Monitors/Lines to be used Standard Anesthetic Consideration Increased Aspiration Risk and PONV prophylaxis Risks for Aspiration: OtherOther: weeks Induction intravenous induction Anesthetic Technique General; Post-Op Pain Plan IV analgesics and Orals; Blood Products T and S; Interpretive Services Informed Consent PARQ discussed with: patient, Procedures, Alternatives, Risks, and Questions discussed and Risk/benefit of anesthesia plan and blood product discussed Code status in OR Patients Code Status in OR: FULL 01/11 4:44 PM nesthesia Postproc edure Evaluation - Magnolia Prince MD - 01/11/2015 12:32 PM PDTFormatting of this note mi ght be different from the original. Azucena Ortega Jose G [id number] Allergies Allergen Reactions Adhesive Tape Contact Dermatitis Codeine Hives Hydrocodone Hives Morphine Sulfate Hives Past Surgical History Procedure Laterality Date Insertion, ureteral stent Right 11/04/2014 Hand surgery Right Cholecystectomy Hernia repair X 2 Open removal of solid matter from pericardial cavity 2009 Upper g.i. endoscopy Colonoscopy D&c (dilatation and curettage) Temp: 36.4 C (97.5 F) Pulse: 84 Resp: 18 BP: 119/76 mmHg SpO2: 99 % Evaluation Patient personally seen and evaluated for recovery from anesthesia care, VS including tempe rature and hydration status are normal, Adverse or possible adverse effects from anesthesia care noted and ROS including card, resp, Neuro, and GI w/o evidence of adverse effects Complications Other: Patient doing well postop, monitoring provided, HR consistently in high 120s to 130s. documented in this encounter Miscellaneous Notes Ane airway standard - Beata Chu CRNA - 01/11/2015 9:18 AM PDTProcedure Reason for Intubation: For surgical procedure, Location Performed: OR , Patient was preoxyg enated Mask Ventilation Grade 1 - Ventilated by mask Rapid Sequence Induction: with cricoid Intubation Blade type: Linda , Blade size: 3, Atraumatic laryngoscopy: Atraumatic Laryngoscopy, La ryngoscopic view: Grade I, Number of Attempts: 1, Positive for EtCO2: Yes, Breath sounds: Bi lateral and equal ETT Ett Adult: Single-lumen cuffed ETT Size: 7 ETT secured with: adhesive tape Depth at Lip: 22 cm Airway leak: No LMA Narrative Attending physically present Attending: MAGNOLIA PRINCE Performed by SULAIMAN JASON MC/ANE PreOp N ote - Magnolia Prince MD - 12/29/2014 8:04 AM PDT ROS Pertinent HPI: 34 weeks lady presenting for ureteroscopy and possible lithotripsy. Pulmonary: Current Every Day Smoker; 0.25 packs/day for 16 years; Types: Cigarettes Asthma associated with activity in high elevation. shortness of breath with exertion Pt. Has asthma Classification: exercise-induced asthma Frequency: very infrequent ER Visits: non e Hospital Visits: Cardiovascular: Hx of pericardial cyst - st/p resection 2009. Physical activity limited by being in third trimer. Functional Capacity: Moderate GI/Hepatic: Nausea. Acid reflex since being 7 years old now exacerbated by being . GERD Control: Well controlled : Nephrolithiasis, s/p a right ureteral stent, LMP: 05/2015, 30 weeks due date 02/21/2015 . St/p ureteral stent placement in October 2014, which made the pain worse so the stent was remov ed. 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 Heme/Onc: Within Defined Limits except as noted below Skin: Within Defined Limits except as noted below Physical Exam General: Patients general appearance: Healthy and Alert Head & Neck/Airway: Neck ROM: full TM Distance:> 6cm Dentition: missing teeth and chipped teeth Dental risk discussed with/pt : Yes Mallampati: I Mouth Opening: > = 3 cm C-Spine: normal Neck Anatomy: Normal Jaw Protr usion: Normal, lower incisors can protrude past upper incisors Lung Exam: breath sounds normal Cardiac: Rhythm: regular Rate: normal Abdominal: General Findings: Deferred Musculoskeletal: Findings: tone normal Neuro/Psych: alert Integument: Color: pink Turgor: turgor normal Implants: 34 y.o. F scheduled for 01/11/15 URETEROSCOPY WITH/WITHOUT LASER LITHOTRIPSY (Right ) by Rosemarie Wills MD / [facility] 6[facility] Past medical hx is significant for 31 with a history of ne phrolithiasis who developed right flank pain in September, Multiple abdominal ultrasounds have s hown mild right hydronephrosis of unclear etiology (no stones visualized). She was taken to the operating room on 11/04/14 by a local urologist who placed a right ureteral stent. A posto p renal US showed continued moderate right hydronephrosis but a ureteral jet was present. He r flank pain was worse with the stent in place. It was removed 24 hour later. Nephrostomy tu be placement was recommended. Weight__219___lbs. Height_5___ Ft._6.5___Inches BMI __34.9___ ED H&P and labs visit by Dr. Theodora Jennings Dated 12/02/2014 received and sent to be scanned into [facility] 12/29/2014 ADMIN ASSISTANT Visit notes received from PCP, Dr. Clementine Abdalla MD dated 12/03/2014, sent for sca nning. See Media tab, under heading: File attached to: Scanned Document Description: "Outs radha H and P", Enc. Date:12/29/2014 Patient to be examined DOS prior to procedure for current H&P Patient interview complete and pertinent updates documented under patient history. Patient received pre-op instructions per AVS and verbalized good understanding. Phone appoi ntment completed as scheduled. Transportation:PHILOMENA Dailey documented in this encounter Plan of Treatment Not on filedocumented as of this encounter Visit Diagnoses Not on filedocumented in this encounter Administered Medications + +--------+ +------+------+------+ | Medication Order | MAR | Action | Dose | Rate | Site | | | Action | Date | | | | + +--------+ +------+------+------+ | cefTRIAXone (ROCEPHIN) | Given | 01/12/20 | 1 g | | | | injection INTRAPROCEDURE PRN, | | 15 9:15 | | | | | Starting Sun01/11/15 at 0915, | | AM PDT | | | | | Until Sun01/11/15 at 1003 | | | | | | + +--------+ +------+------+------+ +---+---+ | | | +---+---+ + +-------+ +------+---+---+ | ePHEDrine injection | Given | 01/12/20 | 5 mg | | | | intravenous, INTRAPROCEDURE PRN, | | 15 9:45 | | | | | Starting Sun01/11/15 at 0901, | | AM PDT | | | | | Until Sun01/11/15 at 1003 | | | | | | + +-------+ +------+---+---+ +-------+ +------+---+---+ | Given | 01/12/20 | 5 mg | | | | | 15 9:21 | | | | | | AM PDT | | | | +-------+ +------+---+---+ | Given | 01/12/20 | 5 mg | | | | | 15 9:01 | | | | | | AM PDT | | | | +-------+ +------+---+---+ +---+---+ | | | +---+---+ + +-------+ +--------+---+---+ | fentaNYL citrate (PF) | Given | 01/12/20 | 25 mcg | | | | (SUBLIMAZE) injection | | 15 9:17 | | | | | INTRAPROCEDURE PRN, Starting Mon | | AM PDT | | | | | 01/11/15 at 0833, Until Mon | | | | | | | 01/11/15 at 1003, sedation | | | | | | + +-------+ +--------+---+---+ +-------+ +--------+---+---+ | Given | 01/12/20 | 25 mcg | | | | | 15 9:03 | | | | | | AM PDT | | | | +-------+ +--------+---+---+ | Given | 01/12/20 | 25 mcg | | | | | 15 8:48 | | | | | | AM PDT | | | | +-------+ +--------+---+---+ +---+---+ | | | +---+---+ + + + +---+---+---+ | lactated ringers IV | given by | 01/12/20 | | | | | INTRAPROCEDURE CONTINUOUS PRN, | | 15 10:10 | | | | | Starting Sun01/11/15 at 0833, | anesthes | AM PDT | | | | | Until Sun01/11/15 at 1003 | iology | | | | | + + + +---+---+---+ + + +---+---+---+ | given by anesthesiology | 01/12/20 | | | | | | 15 9:22 | | | | | | AM PDT | | | | + + +---+---+---+ | New Bag | 01/12/20 | | | | | | 15 8:33 | | | | | | AM PDT | | | | + + +---+---+---+ +---+---+ | | | +---+---+ + +-------+ +-------+---+---+ | lidocaine PF (XYLOCAINE MPF) 20 | Given | 01/12/20 | 60 mg | | | | mg/mL (2 %) injection | | 15 8:48 | | | | | INTRAPROCEDURE PRN, Starting Mon | | AM PDT | | | | | 01/11/15 at 0848, Until Mon | | | | | | | 01/11/15 at 1003 | | | | | | + +-------+ +-------+---+---+ +---+---+ | | | +---+---+ + +-------+ +---------+---+---+ | PHENYLEPHrine 100mcg/mL IV | Given | 01/12/20 | 100 mcg | | | | syringe INTRAPROCEDURE PRN, | | 15 9:05 | | | | | Starting 01/11/15 at 0905, | | AM PDT | | | | | Until Sun01/11/15 at 1003 | | | | | | + +-------+ +---------+---+---+ +---+---+ | | | +---+---+ + +-------+ +--------+---+---+ | propofol INTRAPROCEDURE PRN, | Given | 01/12/20 | 200 mg | | | | Starting 01/11/15 at 0848, | | 15 8:48 | | | | | Until 01/11/15 at 1003 | | AM PDT | | | | + +-------+ +--------+---+---+ +---+---+ | | | +---+---+ + +-------+ +--------+---+---+ | SUCCINYLCHOLINE CHLORIDE 20 | Given | 01/12/20 | 120 mg | | | | MG/ML INJ (PROSED/RSI) | | 15 8:48 | | | | | INTRAPROCEDURE PRN, Starting Mon | | AM PDT | | | | | 01/11/15 at 0848, Until Mon | | | | | | | 01/11/15 at 1003, Neuromuscular | | | | | | | block | | | | | | + +-------+ +--------+---+---+ +---+---+ | | | +---+---+ documented in this encounter
--- OUTSIDE RECORDS SUMMARY | ~2020-03-17 | XMS | Encounter Summary ---
Demographics + + + | Address | [address] | | | [place] [address] | + + + | Home Phone [...] + + + | Author | [facility] | + + + | Organization | [facility] | + + + | Address | Unknown | + + + | Phone | Unavailable | + + + Support + + +---------+ + | Name | Relationship | Address | Phone | + + +---------+ + | Asim Garcia | ECON | Unknown | | + + +---------+ + Care Team Providers + +------+ + | Care Ordinary Seaman Name | Role | Phone | + +------+ + | Arturo Tony ASPHALT PATCHER | PCP | | + +------+ + Encounter Details +--------+ + + + + | Date | Type | Department | Care Team | Description | +--------+ + + + + | 12/29/ | Document-Sc | UNKNOWN DEPARTMENT | Unknown . | | | 2015 | anned | [address] | | | | | | [address] | | | | | | [place] | | | | | | [address] | | | +--------+ + + + [...]
--- OUTSIDE RECORDS SUMMARY | ~2020-03-17 | XMS | Encounter Summary ---
Demographics + + + | Address | [address] [place] [address] N | | | [place] [address] | + + + | Home Phone | | + + + | Preferred Language | Unknown | + + + | Marital Status | Unknown | + + + | Hinduism Affiliation | Unknown | + + + | Race | White | + + + | Ethnic Group | Not or | + + + Author + + + | Author | [facility] | | | and [place] | + + + | Organization | [facility] | | [...] Team Providers + +------+ + | Care Heading Saw Operator Name | Role | Phone | + +------+ + | Mireya Krishnamurthy | PCP | | + +------+ + Encounter Details +--------+ + + + + | Date | Type | Department | Care Team | Description | +--------+ + + + + | 11/04/ | [facility] | [facility] | Glenn Bro MD | Chronic bilateral | | 2020 | Encounter | HOSPITAL XRAY 900 | [address] | low back pain with | | | | [place] | [place] | bilateral sciatica; | | | | [place] | [id number] | Neck pain, | | | | [phone] | | bilateral; Thoracic | | | | [phone] | | spine pain | +--------+ + + + + Social [...] albuterol 90 | | | 0 | 04//20 | | | mcg/puff inhaler | | [...] + | | | | 0 | 11/03/19 | | | HYDROcodone-acetamin | | | [...] | omeprazole | | | 0 | 10/21/19 | | | (PRILOSEC) 20 mg | [...] | + +--------+ + + + | XR LUMBAR SPINE 2 OR | Routin | 11/05/2019 | Chronic bilateral | Results for this | | 3 VW | e | 3:09 PM | low back pain with | procedure are in the | | | | PDT | bilateral sciatica | results section. | + +--------+ + + + | XR THORACIC SPINE 2 | Routin | 11/05/2019 | Thoracic spine | Results for this | | VW | e | 3:09 PM | pain | procedure are in the | | | | PDT | | results section. | + +--------+ + + + | XR CERVICAL SPINE 2 | Routin | 11/05/2019 | Neck pain, | Results for this | | OR 3 VIEWS | e | 3:09 PM | bilateral | procedure are in the | | | | PDT | | results section. | + +--------+ + + + documented in this encounter Results XR Thoracic Spine 2 Vw (11/05/2019 3:09 PM PDT) + + | Specimen | + + | | + + + + + | Impressions | Performed At | + + + | No acute process. Mild degenerative change of the lower cervical | [facility] | | spine. Reversal of normal cervical lordosis may be related to | | | positional artifact versus muscle spasm. Lower lumbar facet | | | hypertrophy. Mild apex left lumbar scoliosis. Dictated by: Raul Stevens | | | 3:14 PM | | + + + + + + | Narrative | Performed At | + + + | EXAMINATION: XR CERVICAL SPINE 2 OR 3 VIEWS; XR THORACIC SPINE 2 | [facility] | | VW; XR LUMBAR SPINE 2 OR 3 VW HISTORY: persistent neck pain; | | | persistent thoracic spine pain; persistent low back COMPARISON | | | STUDY: None FINDINGS: Cervical vertebral bodies are normally | | | aligned. Straightening of the normal cervical lordosis. Disc heights | | | are decreased at C5-6 and C6-7 with associated endplate productive | | | change. Minimal uncovertebral hypertrophy. No prevertebral soft | | | tissue swelling. No acute fracture or subluxation. The dens and | | | lateral masses are unremarkable. Rib-bearing thoracic vertebral | | | bodies are normally aligned. No acute fracture or subluxation. Disc | | | heights are maintained. Minimal endplate productive change at T11-12. | | | Visualized ribs are unremarkable. Visualized thorax is clear. | | | Heart size is normal. 5 lfl-sjh-skqulbd lumbar vertebral bodies. | | | Mild apex left scoliosis. Disc heights are preserved. Mild L4-5 and | | | L5-S1 facet hypertrophy. No fracture or subluxation. No endplate | | | productive change. SI joints are symmetric. Surgical clips suggest | | | prior cholecystectomy. | | + + + + -----+ | Procedure Note | + -----+ | Amado, Rad Results In - 11/05/2019 3:18 PM PDT EXAMINATION:XR CERVICAL SPINE 2 OR 3 | | VIEWS; XR THORACIC SPINE 2 VW; XR LUMBAR SPINE 2 OR 3 VWHISTORY:persistent neck pain; | | persistent thoracic spine pain; persistent low backCOMPARISON | | STUDY:NoneFINDINGS:Cervical vertebral bodies are normally aligned.Straightening of the | | normal cervical lordosis.Disc heights are decreased at C5-6 and C6-7 with associated | | endplate productive change.Minimal uncovertebral hypertrophy.No prevertebral soft tissue | | swelling.No acute fracture or subluxation.The dens and lateral masses are | | unremarkable.Rib-bearing thoracic vertebral bodies are normally aligned.No acute | | fracture or subluxation.Disc heights are maintained.Minimal endplate productive change | | at T11-12.Visualized ribs are unremarkable.Visualized thorax is clear.Heart size is | | normal.5 cae-idn-cjqqcel lumbar vertebral bodies.Mild apex left scoliosis.Disc heights | | are preserved.Mild L4-5 and L5-S1 facet hypertrophy.No fracture or subluxation.No | | endplate productive change.SI joints are symmetric.Surgical clips suggest prior | | cholecystectomy.IMPRESSION: No acute process.Mild degenerative change of the lower | | cervical spine.Reversal of normal cervical lordosis may be related to positional | | artifact versus muscle spasm.Lower lumbar facet hypertrophy.Mild apex left lumbar | | scoliosis.Dictated by: Raul JensenamElectronically Signed by: Raul Stevens on | | 11/05/2019 3:14 PM | |Rib-bearing thoracic vertebral bodies are normally aligned. | |No acute fracture or subluxation. | |Disc heights are maintained. | |Minimal endplate productive change at T11-12. | |Visualized ribs are unremarkable. | |Visualized thorax is clear. | |Heart size is normal. | | | |5 dnl-tdg-iiasrpk lumbar vertebral bodies. | |Mild apex left scoliosis. | |Disc heights are preserved. | |Mild L4-5 and L5-S1 facet hypertrophy. | |No fracture or subluxation. | |No endplate productive change. | |SI joints are symmetric. | |Surgical clips suggest prior cholecystectomy. | | | |IMPRESSION: | |No acute process. | |Mild degenerative change of the lower cervical spine. | |Reversal of normal cervical lordosis may be related to positional artifact versus muscle sp asm. | |Lower lumbar facet hypertrophy. | |Mild apex left lumbar scoliosis. | | | |Dictated by: Raul Stevens | | | | | + -----+ + +---------+ + + | Performing | Address | City/State/Zipcode | Phone Number | | Organization | | | | + +---------+ + + | [facility] | | | | + +---------+ + + XR Cervical Spine 2 or 3 Views (11/05/2019 3:09 PM PDT) + + | Specimen | + + | | + + + + + | Impressions | Performed At | + + + | No acute process. Mild degenerative change of the lower cervical | [facility] | | spine. Reversal of normal cervical lordosis may be related to | | | positional artifact versus muscle spasm. Lower lumbar facet | | | hypertrophy. Mild apex left lumbar scoliosis. Dictated by: Raul Acuña | Domenico Stevens | | | 3:14 PM | | + + + + + + | Narrative | Performed At | + + + | EXAMINATION: XR CERVICAL SPINE 2 OR 3 VIEWS; XR THORACIC SPINE 2 | [facility] | | VW; XR LUMBAR SPINE 2 OR 3 VW HISTORY: persistent neck pain; | | | persistent thoracic spine pain; persistent low back COMPARISON | | | STUDY: None FINDINGS: Cervical vertebral bodies are normally | | | aligned. Straightening of the normal cervical lordosis. Disc heights | | | are decreased at C5-6 and C6-7 with associated endplate productive | | | change. Minimal uncovertebral hypertrophy. No prevertebral soft | | | tissue swelling. No acute fracture or subluxation. The dens and | | | lateral masses are unremarkable. Rib-bearing thoracic vertebral | | | bodies are normally aligned. No acute fracture or subluxation. Disc | | | heights are maintained. Minimal endplate productive change at T11-12. | | | Visualized ribs are unremarkable. Visualized thorax is clear. | | | Heart size is normal. 5 mao-pgr-oteuoey lumbar vertebral bodies. | | | Mild apex left scoliosis. Disc heights are preserved. Mild L4-5 and | | | L5-S1 facet hypertrophy. No fracture or subluxation. No endplate | | | productive change. SI joints are symmetric. Surgical clips suggest | | | prior cholecystectomy. | | + + + + -----+ | Procedure Note | + -----+ | Amado, Rad Results In - 11/05/2019 3:18 PM PDT EXAMINATION:XR CERVICAL SPINE 2 OR 3 | | VIEWS; XR THORACIC SPINE 2 VW; XR LUMBAR SPINE 2 OR 3 VWHISTORY:persistent neck pain; | | persistent thoracic spine pain; persistent low backCOMPARISON | | STUDY:NoneFINDINGS:Cervical vertebral bodies are normally aligned.Straightening of the | | normal cervical lordosis.Disc heights are decreased at C5-6 and C6-7 with associated | | endplate productive change.Minimal uncovertebral hypertrophy.No prevertebral soft tissue | | swelling.No acute fracture or subluxation.The dens and lateral masses are | | unremarkable.Rib-bearing thoracic vertebral bodies are normally aligned.No acute | | fracture or subluxation.Disc heights are maintained.Minimal endplate productive change | | at T11-12.Visualized ribs are unremarkable.Visualized thorax is clear.Heart size is | | normal.5 sqy-uiw-ibafyny lumbar vertebral bodies.Mild apex left scoliosis.Disc heights | | are preserved.Mild L4-5 and L5-S1 facet hypertrophy.No fracture or subluxation.No | | endplate productive change.SI joints are symmetric.Surgical clips suggest prior | | cholecystectomy.IMPRESSION: No acute process.Mild degenerative change of the lower | | cervical spine.Reversal of normal cervical lordosis may be related to positional | | artifact versus muscle spasm.Lower lumbar facet hypertrophy.Mild apex left lumbar | | scoliosis.Dictated by: Raul Hairstonectronically Signed by: Raul Stevens on | | 11/05/2019 3:14 PM | |Rib-bearing thoracic vertebral bodies are normally aligned. | |No acute fracture or subluxation. | |Disc heights are maintained. | |Minimal endplate productive change at T11-12. | |Visualized ribs are unremarkable. | |Visualized thorax is clear. | |Heart size is normal. | | | |5 qst-cud-ivlppnu lumbar vertebral bodies. | |Mild apex left scoliosis. | |Disc heights are preserved. | |Mild L4-5 and L5-S1 facet hypertrophy. | |No fracture or subluxation. | |No endplate productive change. | |SI joints are symmetric. | |Surgical clips suggest prior cholecystectomy. | | | |IMPRESSION: | |No acute process. | |Mild degenerative change of the lower cervical spine. | |Reversal of normal cervical lordosis may be related to positional artifact versus muscle sp asm. | |Lower lumbar facet hypertrophy. | |Mild apex left lumbar scoliosis. | | | |Dictated by: Raul Stevens | | | | | + -----+ + +---------+ + + | Performing | Address | City/State/Zipcode | Phone Number | | Organization | | | | + +---------+ + + | [facility] | | | | + +---------+ + + XR Lumbar Spine 2 or 3 Vw (11/05/2019 3:09 PM PDT) + + | Specimen | + + | | + + + + + | Impressions | Performed At | + + + | No acute process. Mild degenerative change of the lower cervical | [facility] | | spine. Reversal of normal cervical lordosis may be related to | | | positional artifact versus muscle spasm. Lower lumbar facet | | | hypertrophy. Mild apex left lumbar scoliosis. Dictated by: Raul Stevens | | | 3:14 PM | | + + + + + + | Narrative | Performed At | + + + | EXAMINATION: XR CERVICAL SPINE 2 OR 3 VIEWS; XR THORACIC SPINE 2 | [facility] | | VW; XR LUMBAR SPINE 2 OR 3 VW HISTORY: persistent neck pain; | | | persistent thoracic spine pain; persistent low back COMPARISON | | | STUDY: None FINDINGS: Cervical vertebral bodies are normally | | | aligned. Straightening of the normal cervical lordosis. Disc heights | | | are decreased at C5-6 and C6-7 with associated endplate productive | | | change. Minimal uncovertebral hypertrophy. No prevertebral soft | | | tissue swelling. No acute fracture or subluxation. The dens and | | | lateral masses are unremarkable. Rib-bearing thoracic vertebral | | | bodies are normally aligned. No acute fracture or subluxation. Disc | | | heights are maintained. Minimal endplate productive change at T11-12. | | | Visualized ribs are unremarkable. Visualized thorax is clear. | | | Heart size is normal. 5 lmx-tbg-uogkeft lumbar vertebral bodies. | | | Mild apex left scoliosis. Disc heights are preserved. Mild L4-5 and | | | L5-S1 facet hypertrophy. No fracture or subluxation. No endplate | | | productive change. SI joints are symmetric. Surgical clips suggest | | | prior cholecystectomy. | | + + + + -----+ | Procedure Note | + -----+ | Amado, Rad Results In - 11/05/2019 3:18 PM PDT EXAMINATION:XR CERVICAL SPINE 2 OR 3 | | VIEWS; XR THORACIC SPINE 2 VW; XR LUMBAR SPINE 2 OR 3 VWHISTORY:persistent neck pain; | | persistent thoracic spine pain; persistent low backCOMPARISON | | STUDY:NoneFINDINGS:Cervical vertebral bodies are normally aligned.Straightening of the | | normal cervical lordosis.Disc heights are decreased at C5-6 and C6-7 with associated | | endplate productive change.Minimal uncovertebral hypertrophy.No prevertebral soft tissue | | swelling.No acute fracture or subluxation.The dens and lateral masses are | | unremarkable.Rib-bearing thoracic vertebral bodies are normally aligned.No acute | | fracture or subluxation.Disc heights are maintained.Minimal endplate productive change | | at T11-12.Visualized ribs are unremarkable.Visualized thorax is clear.Heart size is | | normal.5 hmd-rlp-wwhxnrf lumbar vertebral bodies.Mild apex left scoliosis.Disc heights | | are preserved.Mild L4-5 and L5-S1 facet hypertrophy.No fracture or subluxation.No | | endplate productive change.SI joints are symmetric.Surgical clips suggest prior | | cholecystectomy.IMPRESSION: No acute process.Mild degenerative change of the lower | | cervical spine.Reversal of normal cervical lordosis may be related to positional | | artifact versus muscle spasm.Lower lumbar facet hypertrophy.Mild apex left lumbar | | scoliosis.Dictated by: Raul JensenamElectronically Signed by: Raul Stevens on | | 11/05/2019 3:14 PM | |Rib-bearing thoracic vertebral bodies are normally aligned. | |No acute fracture or subluxation. | |Disc heights are maintained. | |Minimal endplate productive change at T11-12. | |Visualized ribs are unremarkable. | |Visualized thorax is clear. | |Heart size is normal. | | | |5 gjt-kja-srjrbvn lumbar vertebral bodies. | |Mild apex left scoliosis. | |Disc heights are preserved. | |Mild L4-5 and L5-S1 facet hypertrophy. | |No fracture or subluxation. | |No endplate productive change. | |SI joints are symmetric. | |Surgical clips suggest prior cholecystectomy. | | | |IMPRESSION: | |No acute process. | |Mild degenerative change of the lower cervical spine. | |Reversal of normal cervical lordosis may be related to positional artifact versus muscle sp asm. | |Lower lumbar facet hypertrophy. | |Mild apex left lumbar scoliosis. | | | |Dictated by: Raul Stevens | | | | | + -----+ + +---------+ + + | Performing | Address | City/State/Zipcode | Phone Number | | Organization | | | | + +---------+ + + | [facility] | | | | + +---------+ + + documented in this encounter Visit Diagnoses + + | Diagnosis | + + | Chronic bilateral low back pain with bilateral sciatica | + + | Neck pain, bilateral Cervicalgia | + + | Thoracic spine pain Pain in thoracic spine | + + documented in this encounter"
--- OUTSIDE RECORDS SUMMARY | ~2020-03-17 | XMS | Encounter Summary ---
Demographics + + + | Address | [address] [place] [address] N | | | [place] [address] | + + + | Home Phone | | + + + | Preferred Language | Unknown | + + + | Marital Status | Unknown | + + + | Amish Affiliation | Unknown | + + + | Race | White | + + + | Ethnic Group | Not or | + + + Author + + + | Author | [facility] | | | and [place] | + + + | Organization | [facility] | | | [...] Team Providers + +------+ + | Care Veneer Jointer Operator Name | Role | Phone | + +------+ + | Mireya Krishnamurthy | PCP | | + +------+ + Reason for Visit + +--------+ + | Reason | Onset | Comments | | | Date | | + +--------+ + | Results, Imaging | 11/05/ | | | | 2020 | | + +--------+ + Encounter Details +--------+ + + + + | Date | Type | Department | Care Team | Description | +--------+ + + + + | 11/05/ | Telephone | [facility] | Glenn Bro MD | Results, Imaging | | 2020 | | [facility]OSP[facility] | [address] [place] | | | | | CLIN[facility] [address] | [place], [place] | | | | | [address] [place], | [address] | | | | | [place] [address] | | | | | | [phone] | | | +--------+ + + + [...] Telephone Encounter - Glenn Bro MD - 11/06/2019 11:50 AM PDTcalled and gave xr result s of cervical, thoracic,and lumbar spineElectronically signed by Glenn Bro MD at 2019 11:50 AM PDTTelephone Encounter - Ирина Barnes RN - 11/06/2019 11:49 AM PDTCalled an d spoke with pt informed her PT going to [facility] elephone Encounter - Nabila Crowder - 11/06/2019 11:27 AM P DTPatient called back stating she checked with our Physical Therapy and we do water thera py. She would like the referral there please. Electronically signed by Nabila Crowder at 12/2019 11:27 AM PDTTelephone Encounter - Aria Gates - 11/06/2019 10:38 AM Bran Bro referred patient to Physical Thereapy in [place] and they do not have enough therapist wor guy right now so she will be put aside until they resume. She wants to know if she can be r eferred to for her therapy? 10:4 0 AM PDTdocumented in this encounter Plan of Treatment Not on filedocumented as of this encounter Visit Diagnoses Not on filedocumented in this encounter"
--- OUTSIDE RECORDS SUMMARY | ~2020-03-17 | XMS | Encounter Summary ---
Demographics + + + | Address | [address] [place] [address] N | | | [place] [address] | + + + | Home Phone | | + + + | Preferred Language | Unknown | + + + | Marital Status | Unknown | + + + | Confucianism Affiliation | Unknown | + + + | Race | White | + + + | Ethnic Group | Not or | + + + Author + + + | Author | [facility] | | | and [place] | + + + | Organization | [facility] | | | and [...] Team Providers + +------+ + | Care Pediatric Acute Care Unit Nurse Name | Role | Phone | + [...] | | | | | Dizziness | Hiral Otoole, | [address] | | | | | Gait | MD [address] | [address] | | | | | disorder | [place], | [place] | | | | | Procedures | [place] | [address] | | | | | MRI Brain w | [place], [place] | Phone: | | | | | wo Contrast | [address] | [phone] | | | | | | Phone: | Fax: | | | | | | [phone] | [phone] | | | | | | Fax: | | | | | | | [phone] | | +--------+--------+ + + + + Self-referral (Routine) +--------+ + + + + + | Status | Reason | Specialty | Diagnoses / | Referred By | Referred To | | | | | Procedures | Contact | Contact | +--------+ + + + + + | Closed | Specialty | Physical | Diagnoses | Bro, | [facility] | | | Services | Therapy | Chronic | Hiral Otoole, | MICHEAL | | | Required | | bilateral | MD [address] | THERAPY [address] | | | | | low back | KATHLEEN MORALES, | [place] | | | | | pain with | [place] | [place], [place] | | | | | bilateral | [place], [place] | [address] | | | | | sciatica | [address] | Phone: | | | | | Neck pain, | Phone: | [phone] | | | | | bilateral | [phone] | Fax: | | | | | Thoracic | Fax: | [phone] | | | | | spine pain | [phone] | | +--------+ + + + + + Reason for Visit + + + | Reason | Comments | + + + | Establish Care | repeat falls, low back pain | + + + Evaluate & Treat (Routine) +--------+--------+ + + + + | Status | Reason | Specialty | Diagnoses / | Referred By | Referred To | | | | | Procedures | Contact | Contact | +--------+--------+ + + + + | Closed | | Neurology | Diagnoses | Raghu, | Dieudonne, | | | | | Repeated | RICK Santamaria | Hiral Otoole MD | | | | | falls Low | [address] | [address] | | | | | back pain | Jose G Lopez | [place] | | | | | | [place], | [place], [place] | | | | | | [place] | [address] Phone: | | | | | | [address] | [phone] | | | | | | Phone: | Fax: | | | | | | [phone] | [phone] | | | | | | Fax: | | | | | | | [phone] | | +--------+--------+ + + + + Encounter Details +--------+---------+ + + + | Date | Type | Department | Care Team | Description | +--------+---------+ + + + | 11/04/ | Office | [place] [facility] | Hiral Bro MD | Neck pain, bilateral | | 2019 | Visit | [facility] | [address] [place] | (Primary Dx); | | | | CLINIC [address] | [place] | Chronic bilateral | | | | DR SISSY CHUNG, | [address] | low back pain with | | | | [place] [address] | | bilateral sciatica; | | | | [phone] | | Thoracic spine pain; | | | | | | Fibromyalgia; | | | | | | Dizziness; Gait | | | | | | disorder; Numbness; | | | | | | Migraine [...] + + + | Blood Pressure | 128/80 | 11/05/2019 1:24 PM | | | | | PDT | | + + + + + | Pulse | 78 | 11/05/2019 1:24 PM | | | | | PDT | | + + + + + | Temperature | - | - | | + + + + + | Respiratory Rate | 20 | 11/05/2019 1:24 PM | | | | | PDT | | + + + + + | Oxygen Saturation | 100% | 11/05/2019 1:24 PM | | | | | PDT | | + + + + + | Inhaled Oxygen | - | - | | | Concentration | | | | + + + + + | Weight | 87.5 kg (193 lb) | 11/05/2019 1:24 PM | | | | | PDT | | + + + + + | Height | 167.6 cm (5' 6") | 11/05/2019 1:24 PM | | | | | PDT | | + + + + + | Body Mass Index | 31.15 | 11/05/2019 1:24 PM | | | | | PDT | | + + + + + documented in this encounter Patient Instructions Patient Instructions Hiral Bro MD - 11/05/2019 1:30 PM PDTFormatting of this note mi ght be different from the original. Patient Instructions [facility] Neurology Clinic Dr. Hiral Bro, Neurologist Date:11/05/2019 Name:Azucena Araiza :..1980 Please schedule next follow up appt with Kathia in 4-5 months Chronic pain syndrome Cervical, thoracic, and lumbosacral spine strain r/o degenerative spine disease Fibromyalgia Migraine without aura, not intractable, non status migranoue You have the following tests/procedures ordered: Orders Placed This Encounter Procedures XR Lumbar Spine 2 or 3 Vw XR Cervical Spine 2 or 3 Views XR Thoracic Spine 2 Vw MRI Brain w wo Contrast CBC with Differential Comprehensive Metabolic Panel MEHREEN Screen, Qual, Reflex TSH Vitamin B-12 Rheumatoid Factor, Quant [facility] Physical Therapy, External - AMB Referral Treatment Option- massage, Acupuncture, Over the counter heat patches (icy hot, thermacare, salonpas) , over the counter creams (aspercream, bengay cream, emu oi l), Relaxation therapy, Water therapy, Cortisone shots, Toradol Injections Suggest reading newspapers. magazines, perform word find exercises such as cross word puzz le, and scrabble, other puzzle games like [employer], [employer]VID. Play computer/mobile applications such as [employer] and [employer] GAMES Pain management as per Jani Preston Continue Columbia for pain and Orhenadrine for spasms,has tried tizanidine and cyclobenzaprine with no relief Increase Lyrica 150 mg TID Continue sumatriptan for onset of migraine Has tried duloxetine and gabapentin with side effects Discussed trigger point injection to neck and lower back if worsening signs and symptoms an d given side effects OK to use CBD Any Questions please call DARIUS Gifford or Dr. Bro at [facility] Neurology Clinic General Neck and Back Pain Both neck [...] to disk disease, arthritis in the spinal joints or spinal stenosis (narrowing of the spinal canal) can becom e chronic and last for months or years. [...] may worsen the pain Pain can be localized to one spot or area, or it can be more generalized Pain can spread or radiate upwards, downwards, to the front, or go down your arms Muscle spasm may occur. Most of the time mechanical problems with the muscles or spine cause the pain. it is usuall y caused by an injury, whether known or not, to the muscles or ligaments. While illnesses ca n cause back pain, it is usually not caused by a serious illness. Pain is usually related to physical activity, whether sports, exercise, work, or normal activity. Sometimes it can occ ur without an identifiable cause. This can happen simply by stretching or moving wrong, with out noting pain at the time. Other causes [...] a pillow between your knees. At first, do not try to stretch out the sore spots. If there is a strain, it is not like the good soreness you get after exercising without an injury. In this case, stretching may make it worse. Don't sit for long periods, [...] or neck pain. As a safety precaution, do not use a heating pad a t bedtime. Sleeping with a heating pad can lead to skin brunner or tissue damage. Therapeutic massage can help relax the back and neck muscles without stretching them. Be aware of safe lifting methods and do not lift anything over 15 pounds until all the p ain is gone. Medicines Talk to your healthcare provider before using medicine, especially if you have other medica l problems or are taking other medicines. You may use agml-urw-ekxabjf medicine to control pain, unless another pain medicine was prescribed. If you have chronic conditions like diabetes, liver or kidney disease, stomach u lcers, gastrointestinal bleeding, or are taking blood thinner medicines. Be careful if you are given pain medicines, narcotics, or medicine for muscle spasm. The y can cause drowsiness, and can affect your coordination, reflexes, and judgment. Do not dri ve or operate heavy machinery. Follow-up care Follow up with your healthcare provider, or as advised. Physical therapy or further tests m ay be needed. If X-rays were taken, you will be notified of any new findings that may affect [...] or legs Numbness in the groin area Difficulty walking Fever of 100.4F (38C) or higher, or as directed by your healthcare provider Date Last Reviewed: 12/31/2015 [employer] [address] [place], [place] [id number]. All righ ts reserved. This information is not intended as a substitute for professional medical care. Always follow your healthcare professional's instructions. Relieving Back Pain Back pain is a common problem. You can strain back muscles by lifting too much weight or ju st by moving the wrong way. Back strain can be uncomfortable, even painful. And it can take weeks or monthsto improve. To help yourself feel better and prevent future back strains, t ry these tips. Important: Don't give aspirin to children or teens without first discussing it with your [facility] healthcare provider. Ice Ice reduces muscle pain and swelling. It helps most during the first 24 to 48 hours after a n injury. Wrap an ice pack or a bag of frozen peas in a thin towel. Never put ice directly on your skin. Place the ice where your back hurts the most. Don t ice for more than 20 minutes at a time. You can use ice several times a day. Medicines Cmok-jro-ftxagun pain relieversincludeacetaminophen and anti-inflammatory medicines, wh ich includes aspirin, naproxen,or ibuprofen. They can help ease discomfort. Some also redu ce swelling. Tell your healthcare provider about any medicines you are already taking. Take medicines only as directed. Manipulation and massage Having manipulation by an osteopathic doctor or chiropractor may be helpful. Getting a mass age also may help. Heat After the first 48 hours, heat can relax sore muscles and improve blood flow. Try a warm bath or shower. Or use a heating pad set on low. To prevent a burn, keep a cl oth between you and the heating pad. Don t use a heating pad for more than 15 minutes at a time. Never sleep on a heating p ad. Date Last Reviewed: 11/30/2017 [employer] [address] [place] [id number]. All righ ts reserved. This information is not intended as a substitute for professional medical care. Always follow your healthcare professional's instructions. Understanding Fibromyalgia People with fibromyalgia tend to have at least 11 of the 18 tender points shown above. Fibromyalgia is a condition that causespain at specific pointson the body,stiffness, and fatigue. What are the symptoms of fibromyalgia? In most cases, you will have tender points on your body. These points are very sore, especi ally when touched. Finding several of these points helps your healthcare provider diagnose f ibromyalgia. Along with the tender points, you may have some or all of the following symptoms: Constant tiredness (fatigue), even after a full night s sleep (nonrestorative sleep) A burning or throbbing pain in many parts of the body (this pain may vary during the day ) Stiffness or aching all over your body Numbness or tingling in your arms and legs Trouble sleeping Bowel problems (bloating, diarrhea, constipation) Headaches Depression How is fibromyalgia diagnosed? There is no lab test to diagnosefibromyalgia. Instead, your healthcare provider will take your health history and examine your joints and muscles. Certain criteria are used when benoit gnosing fibromyalgia. Symptoms need to be present for at least 3 months. Tests may be done t o rule out other conditions with similar symptoms.Then you and your providercan design a plan to help you manage your symptoms. How is fibromyalgia treated? Several medicinesare approved to treat fibromyalgia. Two were originally made to treat de pression. They are duloxetine, andmilnacipran.A third, called pregaballin, was developed to treat nerve pain. Certain medicines used to treat depression have been helpfulwith fib romyalgia. Other medicinesinclude pain relievers such as acetaminophen or stronger opioids . These may be prescribed short term. Nonsteroidal anti-inflammatory drugs (NSAIDs) are used to relieve pain. Theseinclude ibup rofen and naproxen. Getting enough sleep, regular exercise, and eating a healthy diet can help manage symptoms. A form of talk therapy calledcognitive behavioral therapy can be helpful for fibromyalgia . Some people find alternative treatments such as massage, chiropractic treatments, biofeedb ack, or acupuncture also help with symptoms. Date Last Reviewed: 11/30/201719994677-0124 [employer] [address] [place] [address], [place] [address]. All righ ts reserved. This information is not intended as a substitute for professional medical care. Always follow your healthcare professional's instructions. Fibromyalgia Fibromyalgia is a chronic condition.It causes pain and tenderness in connective tissues. This causes muscle pain. Often, there are also many tender areas throughout the body.Symp toms may also include stiffness and feelings of numbness and tingling. Symptoms may be worse upon waking up. They may increase with poor sleep, heavy activity, cold or damp weather, an xiety, or stress. People with fibromyalgia often feel tired. They may have trouble sleeping. Other symptoms i nclude morning stiffness, headaches, and painful menstrual periods. Some people have problem s with thinking clearly and changes in memory. The cause of fibromyalgia is not known.Symptoms are similar to that of other diseases.T hese include rheumatoid arthritis, low thyroid, chronic fatigue syndrome, and Lyme disease. In some cases, these diseases may occur together. Fibromyalgia is often treated with medicines. You and your healthcare provider can discuss the medicine that may work best for you.You may have to try more than one medicine or comb ination of medicines before you find what works for you. Home care If yourhealthcare providerhas prescribed or recommended medicines, take them as dire cted. Rest as needed. Try to get enough sleep. If you have trouble sleeping, discuss this with your healthcare provider. Be active. Regular exercise can help manage symptoms. Some options include walking, swim lauren, and biking. Strengthening exercises may also be helpful. Talk to your healthcare provi neptali about the best ways to be active. Follow a healthy diet. Limit caffeine and alcohol. If you smoke, ask yourhealthcare pr ovider for help to stop. Notice how your body reacts to stress. Learn to listen to your body signals. This will h elp you take action before the stress becomes severe. Learn relaxation techniques. Also consider joining a stress reduction program or class. Talk to your healthcare provider about trying complementary treatments. These include ac upuncture, hypnosis, and biofeedback. Yoga and lacey chi may be helpful. Ask your healthcare provider about cognitive behavioral therapy (CBT). This type of coun seling canhelp people with fibromyalgia cope better with their illness. Follow-up care Follow up with your healthcare provider or as advised by our staff. In many cases, fibromya lgia is best treated with a team approach. This may involve your primary care provider, a furnace repairer, a physical therapist, neida mental health professional. For more information:National [place] of Arthritis and Musculoskeletal and Skin Disease s (NIAMS)www.niams.nih.gov 781-146-3020 When to seek medical advice Contact your healthcare provider right away if any of these occur: Symptoms getting worse or new symptoms developing You feel hopeless, helpless, or lose interest in day-to-day life Date Last Reviewed: 08/30/201619992806-7093 [employer] [address] [place] [address]. All righ ts reserved. This information is not intended as a substitute for professional medical care. Always follow your healthcare professional's instructions. Managing Fibromyalgia SMALL: BIG: Fibromyalgia is a chronic illness that causes pain in specific points on the maria de jesus dy, stiffness, and constant tiredness (fatigue). But it doesn t have to keep you from doin g what you enjoy. You can feel better. You and your healthcare provider can work together to develop a plan. Take medicines as directed You may be given medicinesto help reduce pain and improve sleep. Several medications are approved to treat fibromyalgia. Two were originally designed to leda at depression. They are duloxetine, andmilnacipran.A third, called pregaballin, was kathy blackmon to treat nerve pain. Other medicinesinclude pain relievers such as acetaminophen or stronger opioids. These may be prescribed short term. Nonsteroidal anti-inflammatory drugs(NSAIDs)are used to relieve pain. Theseinclude ib uprofen and naproxen. Get exercise Gentle exercise can help lessen your pain. Try these tips: Choose activities that are gentle on your joints, such as walking, biking, and swimming or other water exercises. Don t push yourself too hard. Build up your strength and endurance slowly, over time. Stick to it. For the most relief, exercise should become part of your daily life. Get a good night s rest To help you get more sleep, try the tips below: Sleep only in a bed, not on a couch or chair. Don t watch TV, read, or work in bed. Go to bed and get up at the same time each day. Try not to take naps. Don t usealcohol, caffeine, or tobacco for at least 3 hours before going to bed. Don t drinkfluids in the evening to avoid having to get up to urinate. Other things you can do No one knows what causes fibromyalgia. But stress, poor eating habits, and extra weight can make it worse. These tips may help you feel better: Eat a balanced diet with plenty of fruits and vegetables, whole grains, lean protein, an d low-fat or nonfat dairy products. Maintain a healthy weight. Learn ways to reduce or manage the stress in your life. Ask your healthcare provider for resources to help you make changes. Or check out the re sources below. Resources Arthritis Foundation www.arthritis.org National Fibromyalgia Association www.fmaware.org [place] Fibromyalgia Syndrome Association www.afsafund.org Date Last Reviewed: 11/30/201719993830-[address] [employer] [place] [address]. All righ ts reserved. This information is not intended as a substitute for professional medical care. Always follow your healthcare professional's instructions. Preventing Migraine Headaches: Triggers Red wine is a common migraine trigger. The first step in preventing migraines is to learn what triggers them. You may then be able to control your triggers to avoid or reduce the severity of your migraines. Know your triggers Be aware that you may have more thanone trigger, and that some triggers may work together . Common migraine triggers include: Food and nutrition. Skipping meals or not drinking enough water can trigger headaches. S o can certain foods, such as caffeine, chocolate, artificial sweeteners, monosodium glutamat e (MSG),aged cheese, or sausage. Alcohol. Red wine and other alcoholic beverages are common migraine triggers. Chemicals. Scents, cleaning products, gasoline, glue, perfume, and paint can be triggers . So can tobacco smoke, including secondhand smoke. Emotions. Stress can trigger headaches or make them worse once they start. Sleep disruption. Staying up late, sleeping late, and traveling across time zones can di srupt your sleep cycle, triggering headaches. Hormones. Many women notice that migraines tend tohappen at a certain point in their m enstrual cycle. control pills or hormone replacement therapy may also trigger migraine s. Environment and weather. Air travel, changes in altitude, air pressure changes, hot sun, or bright or flashing lights can be triggers. Medicine overuse. Frequent use of pain medicines for headache pain can also cause a head ache. This may also be called rebound headache. Control your triggers These are some of the things you can do to try to control triggers: Avoid triggers if you can. For example, stay clear of alcohol and foods that trigger you r headaches. Use unscented household products. Keep regular sleep habits. Manage stress to h elp control emotional triggers. Change your behavior at times when triggers can't be avoided. For example, make sure to get enough rest and drink plenty of water while you're traveling. Make sure to carry a hat, sunglasses, and your medicines. Be alert for migraine symptoms, so you can treat a migraine early if it happens. Date Last Reviewed: 10/30/201719993697-1691 [employer] [address] [place] [address], [place] [id number]. All righ ts reserved. This information is not intended as a substitute for professional medical care. Always follow your healthcare professional's instructions. Preventing Migraine Headaches: Medicines and Lifestyle Changes Going to bed and getting up at the same time each day, including weekends, may help prevent migraines. A migraine is a type of severe headache. Having a migraine can be very painful. But there a re steps you can take to help prevent migraines. Medicines to help prevent migraines Your healthcare provider may prescribe certain medicines to help prevent migraines. Thes e medicines may need to be taken daily. Or they may only need to be taken at times when you re likely to have a migraine. Common medicines used to help prevent migraines include: ? Triptans (serotonin receptor agonists) ? Nonsteroidal anti-inflammatory drugs (such as ibuprofen, available flsq-ptf-kiklgxk) ? Beta-blockers ? Anticonvulsants ? Tricyclic antidepressants ? Calcium channel blockers ? Certain vitamins, minerals, and plant extracts ? Botulinum toxin injection for certain chronic migraines ? CGRP (calcitonin gene-related peptide) agnonists are being reviewed by the Food and Drug Administration (FDA) Lifestyle changes for long-term prevention Here are some suggestions: Exercise. Regular exercise can help prevent migraines and improve your health. (If exerc ise triggers your migraines, talk to your healthcare provider.) Keep regular habits. Don t skip or delay meals. Drink plenty of water. And go to bed a nd get up at about the same time each day. This includes weekends. Try alternative treatments. These are treatments that don't involve the use of medicines or surgery. They may help relieve symptoms and prevent migraines. Some treatment options in clude biofeedback and acupuncture. Ask yourhealthcare providerto tell you more about the se treatments if you have questions. Limit caffeine. You may find that caffeine helps relieve pain during an attack. But too much caffeine can also trigger migraines. So, limit the amount of caffeine you consume. Date Last Reviewed: 10/30/201719995719-2891 [employer] [address] [place] [address], [place] [address]. All righ ts reserved. This information is not intended as a substitute for professional medical care. Always follow your healthcare professional's instructions. documented in this encounter Progress Notes Hiral Bro MD - 11/05/2019 1:30 PM PDT Patient: Azucena Araiza Medical Record: [id number] Date of Services: 11/05/2019 Referring Doctor: No primary care provider on file. Chief Complaint: Chronic pain History of Present Illness: Ms. Araiza was a 38-year-old right-handed lady, seen for neurologic evaluation, experienci ng chronic, persistent, cervical, thoracic, and lumbosacral spine strain with significant hi story of fibromyalgia seen in the pain clinic at the [facility]. According to the patient, her onset of symptoms started in 2012 when she apparently fell landing on h er buttock with apparent fracture at tailbone and since that time been experiencing pain thr oughout her body. She had a work-up consisting of x-rays performed in [place] many years ago along with MRI the results not available on examination. She has tried multiple medications in the past such as nonsteroidals which she developed GI symptoms and stomach ulcers presently receiving Columbia for pain and orphendramine as a muscl e relaxant. She has tried tizanidine and cyclobenzaprine the past with no significant relie f. Since her work-up is been over 2 years ago, I will initially perform x-rays of the cervical , thoracic, and lumbosacral spine to determine any pathology and she was advised of the guille tment options such as acupuncture treatments, massage therapy, relaxation therapy, over-the- counter creams or patches, CBD, and cortisone shots. Patient has been using her CBD to smok ing also as a salve or oil. Patient is amendable to perform PT/OT and craniosacral therapy at [facility] in [place]. I also discussed performing cortisone shots but r jacobdon at this time as she has some aversion to needles. However, she is amenable to acup uncture treatments. In addition, she is been experiencing recurrent dizziness for the past 5 to 6 months with p aterrol feeling quite unsteady and occasional gait instability. She has history of migraine headaches still under control at this time presently using sumatriptan occurring about 1 2 times per month described as sharp to throbbing in nature starting in the occiput becoming diffuse with occasional nausea with no vomiting with photophobia. Due to the recurrent dizziness with gait instability, an MRI of the brain with and without contrast was performed to out demyelinating disease given her age and risk factors and her i ntermittent numbness and paresthesias in both upper and lower extremities. In addition, she is presently being worked up for autoimmune disease and advised to see a r heumatologist for further evaluation and opinion. Past Medical History: Diagnosis Date Arthritis Asthma Back pain Depression Heart disease History of stomach ulcers Migraines Neck pain Social History Socioeconomic History Marital status: Unknown Spouse name: Not on file Number of children: Not on file Years of education: Not on file Highest education level: Not on file Occupational History Not on file Social Needs Financial resource strain: Not on file Food insecurity: Worry: Not on file Inability: Not on file Transportation needs: Medical: Not on file Non-medical: Not on file Tobacco Use Smoking status: Current Every Day Smoker Packs/day: 0.25 Smokeless tobacco: Never Used Substance and Sexual Activity Alcohol use: Not Currently Comment: maybe once a year Drug use: Yes Types: Marijuana Sexual activity: Not on file Lifestyle Physical activity: Days per week: Not on file Minutes per session: Not on file Stress: Not on file Relationships Social connections: Talks on phone: Not on file Gets together: Not on file Attends scientology service: Not on file Active member of club or organization: Not on file Attends meetings of clubs or organizations: Not on file Relationship status: Not on file Intimate partner violence: Fear of current or ex partner: Not on file Emotionally abused: Not on file Physically abused: Not on file Forced sexual activity: Not on file Other Topics Concern Not on file Social History Narrative Not on file Family History Problem Relation Age of Onset No known problems Mother Heart disease Father Hypertension Father Review of Systems: Denies headache, earache, nasal catarrh, diplopia, blurring of vision, d ysphagia, odynophagia, sore throat, neck masses, hearing loss, chest pain, palpitations, kevin rtness of breath, cough, hemoptysis, abdominal pain, diarrhea, constipation, bowel or bladde r dysfunction, hematuria, dysuria, lymphadenopathies, echhymoses, rashes, gait ataxia, and h omicidal or suicidal ideations. Current Outpatient Medications Medication Sig Dispense Refill acetaminophen (TYLENOL) 500 mg tablet Take 500 mg by mouth every 6 hours as needed for Pain. albuterol 90 mcg/puff inhaler Ascorbic Acid (VITAMIN C) 100 MG tablet Take 100 mg by mouth Daily. diphenhydrAMINE (BENADRYL ALLERGY) 25 mg tablet Take 25 mg by mouth every 6 hours as ne eded for Itching. HYDROcodone-acetaminophen (NORCO) 5-325 mg per tablet hyoscyamine (LEVSIN) 0.125 MG tablet montelukast (SINGULAIR) 10 mg tablet omeprazole (PRILOSEC) 20 mg capsule ondansetron (ZOFRAN ODT) 4 mg disintegrating tablet orphenadrine (NORFLEX) 100 mg ER tablet pregabalin (LYRICA) 150 MG capsule TAKE ONE CAPSULE BY MOUTH TWICE DAILY No current facility-administered medications for this visit. Allergies Allergen Reactions Morphine Anaphylaxis Codeine Hives Ibuprofen Nausea And Vomiting Vicodin [Hydrocodone] Itching Adhesive & Tape Rash Labs & Diagnostics: No results found for this or any previous visit (from the past 24 hour(s)). No results found. Neurological Examination: Vitals: 11/05/19 1324 BP: 128/80 Pulse: 78 Resp: 20 PainSc: 6 PainLoc: Back MENTAL STATUS: The patient is awake, alert, and oriented to time, place, and person. [facility] is fluent. Memory, attention, comprehension, and general fund of knowledge are intact. CRANIAL NERVES: Funduscopy revealed distinct disc margins. There are no exudates or hemor rhages noted. Pupils are 3-4 mm, equal and reactive to light and accommodation. Extraocular muscle movements are intact. There are no visual field cuts. There is no nystagmus. There is no facial asymmetry. Facial sensation is intact. Palate elevates symmetrically. Streng th in the trapezius and sternocleidomastoid muscles is normal. Tongue is midline on protrusi on. MOTOR EXAMINATION: Strength is 5/5 throughout. Tone is normal. SENSORY EXAMINATION: Intact to light touch, pin prick, vibration, and proprioception. The re is no extinction on double simultaneous stimulation. DEEP TENDON REFLEXES: 1 + and symmetric. PLANTAR RESPONSES: Downgoing bilaterally GAIT: Wide-based stance, difficulty in tandem gait, Romberg was negative CEREBELLAR EXAMINATION: There is no dysmetria on intpiv-pg-lpoc test. MISCELLANEOUS EXAM: Well kept, well nourished, Atraumatic, no evidence of frontal or maxil mary sinus tenderness, no neck masses, tenderness in the paraspinal cervical spine, trapeziu s, and suprascapular muscles with the decrease with decreased range of motion space on flexi on and extension at 5-10, tenderness in the paraspinal thoracic and lumbosacral spine with increased pain upon flexion and extension at 5-10, abdomen is soft and nontender, extremi ties equally palpable pulses Clinical Impression: Chronic pain syndrome Cervical, thoracic, and lumbosacral spine strain r/o degenerative spine disease Fibromyalgia Migraine without aura, not intractable, non status migranoue Plan: Please schedule next follow up appt with Kathia in 4-5 months Chronic pain syndrome Cervical, thoracic, and lumbosacral spine strain r/o degenerative spine disease Fibromyalgia Migraine without aura, not intractable, non status migranoue You have the following tests/procedures ordered: Orders Placed This Encounter Procedures XR Lumbar Spine 2 or 3 Vw XR Cervical Spine 2 or 3 Views XR Thoracic Spine 2 Vw MRI Brain w wo Contrast CBC with Differential Comprehensive Metabolic Panel MEHREEN Screen, Qual, Reflex TSH Vitamin B-12 Rheumatoid Factor, Quant [facility] Physical Therapy, External - AMB Referral Treatment Option- massage, Acupuncture, Over the counter heat patches (icy hot, thermacare, salonpas) , over the counter creams (aspercream, bengay cream, emu oi l), Relaxation therapy, Water therapy, Cortisone shots, Toradol Injections Suggest reading newspapers. magazines, perform word find exercises such as cross word puzz le, and scrabble, other puzzle games like [employer]u, Mahjong. Play computer/mobile applications such as [employer] and [employer] Pain management as per [place] Continue [place] for pain and Orhenadrine for spasms,has tried tizanidine and cyclobenzaprine with no relief Increase Lyrica 150 mg TID Continue sumatriptan for onset of migraine Has tried duloxetine and gabapentin with side effects Discussed trigger point injection to neck and lower back if worsening signs and symptoms an d given side effects Any Questions please call DARIUS Gifford or Dr. Bro at [facility] Hiral Bro MD11/05/20192:17 PM Electronically signed NOTE: Part of this report was transcribed using voice recognition software. Every effort was made to ensure accuracy. However, inadvertent computerize human resources technician errors may be present documented in this encounter Miscellaneous Notes Addendum Note - Hiral Bro MD - 11/05/2019 1:30 PM PDT Addended by: HIRAL BRO on : 11/05/2019 03:02 PM Modules accepted: Orders documented in this e ncounter Plan of Treatment + + +--------+ + + | Name | Type | Priori | Associated Diagnoses | Order Schedule | | | | ty | | | + + +--------+ + + | [facility] | Outpatient | Routin | Chronic bilateral | Ordered: 11/05/2019 | | Hospital Physical | Referral | e | low back pain with | | | Therapy, External - | | | bilateral sciatica | | | AMB Referral | | | Neck pain, bilateral | | | | | | Thoracic spine | | | | | | pain | | + + +--------+ + + documented as of this encounter Results MRI Brain w wo [...] identified. Normal | | exam.Dictated by: Raul Jensenam | | 2:10 PM | |The brunson-white [...] | | + +---------+ + + XR Thoracic Spine 2 Vw (11/05/2019 3:09 [...] | | Heart size is normal. 5 yhh-oks-imxqwfs lumbar vertebral bodies. | | | Mild [...] is clear.Heart size is | | normal.5 fhy-mbu-fucckzg lumbar vertebral bodies.Mild apex left scoliosis.Disc heights [...] size is normal. | | | |5 buo-ikc-dxbtcpg lumbar vertebral bodies. | |Mild apex left [...] | | Heart size is normal. 5 tap-dbo-hjgxfjy lumbar vertebral bodies. | | | Mild [...] + -----+ | Amado, Rad Results In 11/05/2019 3:18 PM PDT EXAMINATION:XR CERVICAL SPINE [...] is clear.Heart size is | | normal.5 vao-olr-tcwmcwf lumbar vertebral bodies.Mild apex left scoliosis.Disc heights [...] size is normal. | | | |5 tit-wfq-shqloul lumbar vertebral bodies. | |Mild apex left [...] | | Heart size is normal. 5 hml-nfx-iqdmrph lumbar vertebral bodies. | | | Mild [...] + -----+ | Amado, Rad Results In 11/05/2019 3:18 PM PDT EXAMINATION:XR CERVICAL SPINE [...] is clear.Heart size is | | normal.5 fdf-kns-wdebjvi lumbar vertebral bodies.Mild apex left scoliosis.Disc heights [...] size is normal. | | | |5 ngw-peo-akeafxj lumbar vertebral bodies. | |Mild apex left [...] | | | + +---------+ + + Rheumatoid Factor, Quant (11/05/2019 3:09 PM PDT) + + + + + + | Component | Value | Ref Range | Performed | Pathologist | | | | | At | Signature | + + + + + + | RHEUMATOID | < 14Comment: @ Test | <14 IU/mL | REFERENCE | | | FACTOR | Performed By: [facility] | [facility] | | | | [facility] | | [facility] | | | | Zack Cortes | | - [facility] | | | | Nelly Haq, Ph.D., | | [facility] | | | | Direct Casting Operator | | | | | | [address] [facility] | | | | | | [place] [address] | | | | | | ANDRADE #[id number] | | | | + + + + + + + + | Specimen | + + | Blood | + + + + + + + | Performing | Address | City/State/Zipcode | Phone Number | | Organization | | | | + + + + + | REFERENCE LAB | [address] [facility] | [place], [place] | | | [facility] - | | [address] | | | [place] | | | | + + + + + Vitamin B-12 (11/05/2019 3:09 PM PDT) + +-------+ + + + | Component | Value | Ref Range | Performed | Pathologist | | | | | At | Signature | + +-------+ + + + | VITAMIN | 447 | 211 - 911 pg/mL | [facility] | | | B-12 | | | [facility] | | | | [facility] | | | | | | [facility] | | + +-------+ + + + + + | Specimen | + + | Blood | + + + + + + + | Performing | Address | City/State/Zipcode | Phone Number | | Organization | | | | + + + + + | [facility] | [address] | [place] | [phone] | | [facility]OSP[facility] | | [address] | | + + + + + TSH (11/05/2019 3:09 PM PDT) + +-------+ + + + | Component | Value | Ref Range | Performed | Pathologist | | | | | At | Signature | + +-------+ + + + | TSH | 2.74 | 0.36 - 3.74 | [facility] | | | | | uIU/mL | [facility] | | [facility] | | | | | | [facility]ORY | | + +-------+ + + + + + | Specimen | + + | Blood | + + + + + + + | Performing | Address | City/State/Zipcode | Phone Number | | Organization | | | | + + + + + | [facility] | [address] | [place] | [phone] | | [facility]OSP[facility] | | [address] | | + + + + + MEHREEN Screen, Qual, Reflex (11/05/2019 3:09 PM PDT) + + + + + + | Component | Value | Ref Range | Performed | Pathologist | | | | | At | Signature | + + + + + + | MEHREEN Screen, | NEGATIVEComment: MEHREEN IFA | NEGATIVE | REFERENCE | | | Qual | is a first line screen | | [facility] | | | | for detecting the | | DIAGNOSTICS | | | | presence of up to | | - DURBIN | | | | approximately 150 | | HUI | | | | autoantibodies in | | | | | | various autoimmune | | | | | | diseases. A negative MEHREEN | | | | | | IFA result suggests an | | | | | | MEHREEN-associated | | | | | | autoimmune disease is | | | | | | not present at this | | | | | | time, but is not | | | | | | definitive. If there is | | | | | | high clinical suspicion | | | | | | for Sjogren's syndrome, | | | | | | testing for anti-SS-A/Ro | | | | | | antibody should be | | | | | | considered.Anti-Marina-1 | | | | | | antibody should be | | | | | | considered for | | | | | | clinically suspected | | | | | | inflammatory myopathies. | | | | | | AC-0: | | | | | | NegativeInternational | | | | | | Consensus on MEHREEN | | | | | | Patternshttps://doi.org/ | | | | | | 10.1515/essx-1014-2706 | | | | | | For additional | | | | | | information, please | | | | | | refer | | | | | | tohttp://education.[employer] | | | | | | [employer].Cloopen/faq/FAQ1 | | | | | | 77(This link is being | | | | | | provided for | | | | | | information/educational | | | | | | purposesonly.) Test(s) | | | | | | performed at: [facility] | | | | | | [facility] | | | | | | [facility] | | | | | | Eun Obando, Ph.D., | | | | | | [facility], Direct Casting Operator | | | | | | [address] [facility] | | | | | | [facility] | | | | | | [place] [address] | | | | | | ANDRADE #[id number] | | | | + + + + + + + + | Specimen | + + | Blood | + + + + + + + | Performing | Address | City/State/Zipcode | Phone Number | | Organization | | | | + + + + + | REFERENCE LAB | [address] | [place], [place] | | | [facility] - | | [address] | | | [place] | | | | + + + + + Comprehensive Metabolic Panel (11/05/2019 3:09 PM PDT) + + + + + + | Component | Value | Ref Range | Performed | Pathologist | | | | | At | Signature | + + + + + + | Na | 142 | 132 - 143 | [facility] | | | | | mmol/L | [facility] | | | | | | [facility]ATORY | | + + + + + + | K | 4.0 | 3.3 - 4.9 | [facility] | | | | | mmol/L | [facility] | | | | | | [facility] | | + + + + + + | Cl | 107 | 95 - 108 mmol/L | [facility] | | | | | | [facility] | | | | | | [facility] | | + + + + + + | CO2 | 26 | 23 - 34 mmol/L | [facility] | | | | | | [facility] | | | | | | [facility] | | + + + + + + | Anion Gap | 9 | 7 - 16 mmol/L | [facility] | | | | | | [facility] | | | | | | [facility] | | + + + + + + | Glucose | 83 | 70 - 110 mg/dL | [facility] | | | | | | [facility] | | | | | | [facility] | | + + + + + + | BUN | 6 | 5 - 26 mg/dL | [facility] | | | | | | [facility] | | | | | | [facility] | | + + + + + + | Creatinine | 0.67 | 0.60 - 1.30 | [facility] | | | | | mg/dL | [facility] | | | | | | [facility] | | + + + + + + | eGFR, | >60Comment: GLOMERULAR | >=60 | [facility] | | | non- | FILTRATION | mL/min/1.73m2 | [facility] | | | Yemeni | RATE,ESTIMATED | | HOSPITAL | | | | mL/min/1.08e3Slyb than | | LABORATORY | | | | 60 Chronic kidney | | | | | | disease,if found over a | | | | | | 3-month period.Less than | | | | | | 15 Kidney failureFor | | | | | | | | | | | | Americans,multiply the | | | | | | calculated GFR by 1.21. | | | | | | | | | | + + + + + + | Calcium | 8.4 | 8.3 - 10.0 | [facility] | | | | | mg/dL | [facility] | | | | | | [facility] | | + + + + + + | Albumin | 3.9 | 3.0 - 4.5 g/dL | [facility] | | | | | | [facility] | | | | | | [facility] | | + + + + + + | Bilirubin | 0.3 | 0.0 - 1.2 mg/dL | [facility] | | | Total | | | [facility] | | | | | | [facility] | | + + + + + + | Total | 6.9 | 6.6 - 8.5 g/dL | [facility] | | | Protein | | | [facility] | | | | | | [facility] | | + + + + + + | AST | 15 | 0 - 38 U/L | [facility] | | | | | | [facility] | | | | | | [facility] | | + + + + + + | ALT | 14 | 14 - 59 U/L | [facility] | | | | | | [facility] | | | | | | [facility] | | + + + + + + | Alkaline | 51 | 46 - 116 U/L | [facility] | | | Phosphatase | | | [facility] | | | | | | [facility] | | + + + + + + | Globulin | 3.0 | 2.4 - 4.5 g/dL | [facility] | | | | | | [facility] | | | | | | [facility] | | + + + + + + | Albumin/Jeannie | 1.3 | 0.8 - 2.0 | [facility] | | | bulin Ratio | | | [facility] | | | | | | [facility] | | + + + + + + | BUN/Creatin | 9.0 | 7.0 - 24.0 | [facility] | | | ine Ratio | | | [facility] | | | | | | [facility] | | + + + + + + + + | Specimen | + + | Blood | + + + + + + + | Performing | Address | City/State/Zipcode | Phone Number | | Organization | | | | + + + + + | [facility] | [address] | [place] | [phone] | | [facility] | | [address] | | + + + + + CBC with Differential (11/05/2019 3:09 PM PDT) + +-------+ + + + | Component | Value | Ref Range | Performed | Pathologist | | | | | At | Signature | + +-------+ + + + | White Blood | 8.4 | 4.3 - 10.4 K/uL | [facility] | | | Cells | | | [facility] | | | | | | [facility] | | + +-------+ + + + | Red Blood | 4.73 | 4.12 - 5.30 | [facility] | | | Cells | | M/uL | [facility] | | | | | | [facility] | | + +-------+ + + + | Hemoglobin | 13.8 | 12.4 - 15.7 | [facility] | | | | | g/dL | [facility] | | | | | | [facility] | | + +-------+ + + + | Hematocrit | 41.1 | 37.7 - 47.0 % | [facility] | | | | | | [facility] | | | | | | [facility] | | + +-------+ + + + | MCV | 86.9 | 82.0 - 97.0 fL | [facility] | | | | | | [facility] | | | | | | [facility] | | + +-------+ + + + | MCH | 29.2 | 27.1 - 32.3 pg | [facility] | | | | | | [facility] | | | | | | [facility] | | + +-------+ + + + | MCHC | 33.6 | 32.0 - 36.9 | [facility] | | | | | g/dL | [facility] | | | | | | [facility] | | + +-------+ + + + | RDW-CV | 13.3 | 0.0 - 17.0 % | [facility] | | | | | | [facility] | | | | | | [facility] | | + +-------+ + + + | Platelet | 165 | 150 - 450 K/uL | [facility] | | | Count | | | [facility] | | | | | | [facility] | | + +-------+ + + + | MPV | 10.7 | 9.4 - 12.3 fL | [facility] | | | | | | [facility] | | | | | | [facility] | | + +-------+ + + + | % | 52.5 | 42.0 - 76.0 % | [facility] | | | Neutrophils | | | [facility] | | | | | | [facility] | | + +-------+ + + + | % | 37.4 | 20.0 - 40.0 % | [facility] | | | Lymphocytes | | | [facility] | | | | | | [facility] | | + +-------+ + + + | % Monocytes | 5.3 | 3.0 - 13.0 % | [facility] | | | | | | [facility] | | | | | | [facility] | | + +-------+ + + + | % | 3.8 | 0.0 - 7.0 % | [facility] | | | Eosinophils | | | [facility] | | | | | | [facility] | | + +-------+ + + + | % Basophils | 0.8 | 0.0 - 2.0 % | [facility] | | | | | | [facility] | | | | | | [facility] | | + +-------+ + + + | % Immature | 0.2 | 0.0 - 0.5 % | [facility] | | | Granulocyte | | | [facility] | | | s | | | [facility] | | | | | | LABORATORY | | + +-------+ + + + | Absolute | 4.38 | 2.50 - 8.50 | [facility] | | | Neutrophils | | K/uL | [facility] | | | | | | [facility] | | + +-------+ + + + | Absolute | 3.13 | 1.00 - 3.80 | [facility] | | | Lymphocytes | | K/uL | [facility] | | | | | | [facility] | | + +-------+ + + + | Absolute | 0.44 | 0.00 - 0.80 | [facility] | | | Monocytes | | K/uL | [facility] | | | | | | [facility] | | + +-------+ + + + | Absolute | 0.32 | 0.00 - 0.70 | [facility] | | | Eosinophils | | K/uL | [facility] | | | | | | [facility] | | + +-------+ + + + | Absolute | 0.07 | 0.00 - 0.20 | [facility] | | | Basophils | | K/uL | [facility] | | | | | | [facility] | | + +-------+ + + + | Absolute | 0.02 | 0.00 - 0.15 | [facility] | | | Immature | | K/uL | [facility] | | | Granulocyte | | | [facility]OSPITAL | | | s | | | LABORATORY | | + +-------+ + + + | % nRBC | 0 | <=0 per 100 | [facility] | | | | | WBCs | [facility] | | | | | | [facility] | | + +-------+ + + + | Absolute | 0.00 | 0.00 - 0.01 | [facility] | | | nRBC | | K/uL | [facility] | | | | | | [facility] | | + +-------+ + + + + + | Specimen | + + | Blood | + + + + + + + | Performing | Address | City/State/Zipcode | Phone Number | | Organization | | | | + + + + + | [facility] | [address] | [place] | [phone] | | [facility]OS[facility] | | [address] | | + + + + + documented in this encounter Visit Diagnoses + + | Diagnosis | + + | Neck pain, bilateral - Primary Cervicalgia | + + | Chronic bilateral low back pain with bilateral sciatica | + + | Thoracic spine pain Pain in thoracic spine | + + | Fibromyalgia Mylagia and myositis, unspecified | + + | Dizziness Dizziness and giddiness | + + | Gait disorder Abnormality of gait | + + | Numbness Disturbance of skin sensation | + + | Migraine without aura and without status migrainosus, not intractable Migraine | | without aura, without mention of intractable migraine without mention of status | | migrainosus | + + documented in this encounter
--- OUTSIDE RECORDS SUMMARY | ~2020-03-17 | XMS | Encounter Summary ---
Demographics + + + | Address | [address] [place] [address] N | | | [place] [address] | + + + | Home Phone | | + + + | Preferred Language | Unknown | + + + | Marital Status | Unknown | + + + | Hoahaoism Affiliation | Unknown | + + + | Race | White | + + + | Ethnic Group | Not or | + + + Author + + + | Author | [facility] | | | and [place] | + + + | Organization | [facility] | | | [...] Team Providers + +------+ + | Care Esthetician/Spa Coordinator Name | Role | Phone | + +------+ + | Mireya Krishnamurthy | PCP | | + +------+ + Reason for Visit + +--------+ + | Reason | Onset | Comments | | | Date | | + +--------+ + | Lab Results | 11/09/ | | | | 2020 | | + +--------+ + Encounter Details +--------+ + + + + | Date | Type | Department | Care Team | Description | +--------+ + + + + | 11/09/ | Telephone | [facility] | Glenn Bro MD | Lab Results | | 2020 | | [facility] | [address] | | | | | CLIN[facility] [address] | [place] | | | | | [address] [place], | [address] | | | | | [place] [address] | | | | | | [phone] | | | +--------+ + + + [...] Telephone Encounter - Glenn Bro MD - 11/10/2019 2:32 PM PDTcalled and left a message to call us back for blood test results, neuroapthic work up negative documented in this encounter Plan of Treatment Not on filedocumented as of this encounter Visit Diagnoses Not on filedocumented in this encounter"
--- OUTSIDE RECORDS SUMMARY | ~2020-03-17 | XMS | Encounter Summary ---
Demographics + + + | Address | [address] | | | [place] [address] | + + + | Home Phone | | + + + | Preferred Language | Unknown | + + + | Marital Status | Single | + + + | Orthodox Affiliation | NON | + + + | Race | White | + + + | Ethnic Group | Not or | + + + Author + + + | Author | [facility] | + + + | Organization | [facility] | + + + | Address | Unknown | + + + | Phone | Unavailable | + + + Support + + +---------+ + | Name | Relationship | Address | Phone | + + +---------+ + | Asim Garcia | ECON | Unknown | | + + +---------+ + Care Team Providers + +------+ + | Care Chainman Name | Role | Phone | + +------+ + | Arturo Tony FABRICATION AND ASSEMBLY SUPERVISOR | PCP | | + +------+ + Reason for Visit + +--------+ + | Reason | Onset | Comments | | | Date | | + +--------+ + | Pre-op evaluation | 12/29/ | | | | 2014 | | + +--------+ + Encounter Details +--------+ + + + + | Date | Type | Department | Care Team | Description | +--------+ + + + + | 12/29/ | Telephone-S | Preoperative | | Pre-op evaluation | | 2014 | cheduled | [facility] | | | | | | [facility] | | | | | | Stay [address] | | | | | [address] | | | | | | Mailcode: [id number] | | | | | | [address] | | | | | | [address], [place] | | | | | | [address] | | | | | | [phone] | | | +--------+ + + + + Anesthesia Record + + + + + | Procedure Name | Responsible | Anesthesia Start | Anesthesia Stop Time | | | Anesthesiologist | Time | | + + + + + | DIAGNOSTIC | Magnolia Nolen MD | 01/11/15 0826 | 01/11/15 1014 [...] | Meds | +------+ + + + No medications | on file. | + + + + + | No agents on file. | + + + + | No blood administrations on file. | + + +--------+ + + + | Type | Details | Placement | Removal | +--------+ + + + | Periph | 01/11/15; 0635; Rhiannon Beth RN; | 01/11/15 0635 by | 01/12/15 160 by Valarie | | ulices | Left; Hand; 20 g; None (pt | Rhiannon Beth RN | Saravanan Morales RN | | IV | declined); No; Positive; | | | | | 01/12/15; 1601; Per protocol | | | | | (bothering Pt and she has | | | | | another) | | | +--------+ + + + | Periph | 01/11/15; 850; Right; Distal; | 01/11/15850 by | 01/13/15829 by | | eral | Forearm; 18 g; Positive; | Beata Chu, | Yazmin Berg RN | | IV | 01/13/15; 0830; Discharge | DISPENSING OPERATOR | | +--------+ + + + documented [...] + + documented as of this encounter Patient Instructions Patient Instructions Aria Flores RN - 12/29/2014 10:17 AM PDTFormatting of this note m ight be different from the original. PREOPERATIVE INSTRUCTIONS Do not eat or drink anything after midnight the night before surgery. TAKE the following medications with a sip of water on the morning of surgery: FLUOXETINE 20 MG CAPSULE Take 20 mg by mouth two times daily. ONDANSETRON HCL 4 MG TABLET Take 4 mg by mouth every twelve hours as needed. OXYCODONE-ACETAMINOPHEN 5 MG-325 MG TABLET as needed. Do NOT take the following medications on the morning of surgery: DOCUSATE SODIUM 100 MG CAPSULE Take 100 mg by mouth two times daily. ORAL Take by mouth once daily in the morning. Unless Otherwise Directed by your Surgeon Do not take any Aspirin, vitamin E or non-ster oidal anti-inflammatory (NSAIDs i.e. Advil, Aleve, Ibuprofen) or herbal supplements seven da ys prior to your surgery. These drugs may interfere with normal blood clotting and may cause excessive bleeding and bruising during or after the surgery. If you are taking Coumadin (warfarin), Plavix or any other blood thinners please let you r surgical team know as medication changes will be necessary. If you need a pain medication for general purposes, use Tylenol as directed. If you are in doubt about any medications that you are taking, please contact our office . Important Guidelines Do not shave the surgical area Do not smoke, drink alcohol or use recreational drugs for 24 hours before your surgery Do not eat any hard candy or chew gum after midnight the night before your surgery. Watch for any change in your health condition. Let your surgeon know right away if you do not feel well. Do not wear makeup, perfume, lotions or powder. Remove any nail malay from at least one fingernail. Do not wear any jewelry to the hospital. Wear loose, comfortable clothing. Bring the case and solution for your contact lenses or wear your glasses. Leave all your valuables at home. Allow enough travel time so you re not late for your check in for surgery. Take a bath or shower and remember to shampoo your hair using your usual hair product be fore your arrival at the hospital. Please remember to brush your teeth the night before and the morning of your procedure. Surgery Check in Locations Admitting [facility], ninth floor [facility] Surgery Check in Time: Someone from your surgeon's office or [facility] will provide you with information regarding your check in time. If you have any questions about this, pl ease contact your surgeon's office. Going Home Your surgical team will decide when you are medically ready to go home. If you are released to go home on the same day as your procedure/surgery please note the following: You will not be able to drive. You will be required to have a competent adult drive you or accompany you by taxi or pub lic transportation on the day of discharge. It is also required that you have a competent adult assist you and look after you on the first night after you have undergone regional blocks (72 hours for patients going home with regional block pump), deep sedation, and/or general anesthesia. If you stayed in the hospital after surgery, please arrange for your ride to come for yo u around 9AM on the day your doctor says you can go home. Check out time is 11AM. If you have questions or concerns after you go home, call your doctor s office. If it is after office hours, call the [facility] lay up operator at [phone] and ask them to page your doc tor. documented in this encounter Miscellaneous Notes Telephone Encounter - Aria Flores RN - 12/29/2014 10:17 AM PDTED H&P and labs visit by Dr. Theodora Jennings Dated 12/02/2014 received and sent to be scanned into EPIC 12/29/2014 TEST INSPECTION ENGINEER Visit notes received from PCP, Dr. Clementine [...] understanding. Phone appoi ntment completed as scheduled. documented in this encounter Plan of Treatment Not on filedocumented as of this encounter Visit Diagnoses Not on filedocumented in this encounter
--- OUTSIDE RECORDS SUMMARY | ~2020-03-17 | XMS | Encounter Summary ---
Demographics + + + | Address | [address] | | | [place] [address] | + + + | Home Phone | | + + + | Preferred Language | Unknown | + + + | Marital Status | Single | + + + | Sabianist Affiliation | NON | + + + | Race | White | + + + | Ethnic Group | Not or | + + + Author + + + | Author | [facility] | + + + | Organization | [facility] | + + + | Address | Unknown | + + + | Phone | Unavailable | + + + Support + + +---------+ + | Name | Relationship | Address | Phone | + + +---------+ + | Asim Garcia | ECON | Unknown | | + + +---------+ + Care Team Providers + +------+ + | Care Public Health Social Worker Name | Role | Phone | + +------+ + | Artuor Tony APPRAISER LAND | PCP | | + +------+ + Encounter Details +--------+ + + + + | Date | Type | Department | Care Team | Description | +--------+ + + + + | 11/04/ | Document-Sc | UNKNOWN DEPARTMENT | Unknown . | | | 2015 | anned | [address] | | | | | | [address] | | | | | | [place] | | | | | | [address] | | | +--------+ + + + [...] + + + | RADIOLOGY | | 11/04/2014 | | Results for this | | | | 12:00 AM | | procedure are in the | | | | PDT | | results section. | + +--------+ + + + documented in this encounter Results RADIOLOGY (11/04/2014 12:00 AM PDT) + + + | Narrative | Performed At | + + + | | | + + + documented in this encounter Visit Diagnoses Not on filedocumented in this encounter"
[~2020-03-17 17:54] MED LIST: ANAPROX DS550 MG PO; CYCLOBENZAPRINE10 MG PO; PENICILLIN V P500 MG PO; PERCOCET 5-3251 EACH PO; PRENATAL FORMU1 EAC1 PO; ZOFRAN ODT4 MG SL
--- OUTSIDE RECORDS SUMMARY | 2020-03-17 17:56 | XMS ---
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 Tam has no Care Guidelines for this patient. Elbert VISIT COUNT (12 MO.) [address] [place] [address] SE[facility] [address] TOTAL 2 NOTE: Visits indicate total known visits. ED/C VISIT TRACKING (12 MO.) 03/17/2020 17:55 [facility] [place] TYPE: Emergency COMPLAINT: - R ANKLE INJURY 12/05/2019 13:21 [facility] [place] TYPE: Emergency DIAGNOSES: - Eye Injury - Ocular laceration without prolapse or loss of intraocular tis INPATIENT VISIT TRACKING (12 MO.) No inpatient visits to display in this time frame [email or web address]
[2020-03-17] MEDS ORDERED: PREGABALIN150 MG PO (18:56)
[2020-03-17] MEDS ORDERED: HYDROCODON-ACE1 EA10 PO (18:56)
== END 2020-03-17 20:33 | disposition home or self-care (01) ==
LOC: ED 17:54
DX: S93.401A Sprain of unspecified ligament of right ankle, initial encounter (principal); X50.1XXA Overexertion from prolonged static or awkward postures, initial encounter; K21.9 Gastro-esophageal reflux disease without esophagitis; F17.200 Nicotine dependence, unspecified, uncomplicated; Z88.5 Allergy status to narcotic agent; Z88.8 Allergy status to other drugs, medicaments and biological substances; Z79.899 Other long term (current) drug therapy
CPT/HCPCS: 73610; 99283-25